=== PATIENT | male | born 1965 | race Caucasian/White ===

== ENCOUNTER 2020-06-10 08:55 | Emergency (ER) | payer SELFPAY ==
[2020-06-10] VITALS (10 sets, daily range): BP systolic 133–185; BP diastolic 81–101; PULSE 61–88; RESP 16–20; TEMP 36.3; O2SAT 95–98
--- NOTE | ~2020-06-10 | US_ITS ---
EXAMINATION: US arterial duplex LE LT EXAM DATE: 06/10/2020 11:14 INDICATION: left leg pain, hx arterial occlusion LLE. TECHNIQUE: Multiple grayscale and Doppler images of the left lower extremity arterial system were obt ained (by a technologist who performed the scan) and subsequently reviewed. Correlation is made to . FINDINGS: Velocities reported in centimeters per second. Left-sided common femoral artery 106, Profunda 13, superficial femoral artery 29, popliteal 14, poste rior tibial 7. No flow identified in the dorsalis pedis. There is constant low resistance flow all the arteries measured, with only minimal pulsatility in the se vessels which should have high resistance triphasic waveforms. Could indicate occlusion of supplyi ng iliac artery, with the interrogated vessels supplied through collateralization dampening systolic peaks. IMPRESSION: Abnormal left lower extremity Doppler waveform with minimally pulsatile low resistance co nstant flow throughout cardiac cycle. This could indicate acute or chronic leg occluded iliac artery or stent, with reconstitution through collateralization which could dampen normal pulsatile waveforms . Velocities as above. Reviewed, dictated and finalized at location A. O VISUAL AIDE IMPRESSION: Abnormal left lower extremity Doppler waveform with minimally pulsa tile low resistance constant flow throughout cardiac cycle. This could indicate acute or chronic leg occluded iliac artery or stent, with reconstitution throu gh collateralization which could dampen normal pulsatile waveforms. Velocities as above.
--- NOTE | ~2020-06-10 | CT_ITS ---
EXAMINATION: CTA abd aorta runoff EXAM DATE: 06/10/2020 13:33 INDICATION: left lower extremity occlusion? TECHNIQUE: Spiral CTA abd aorta runoff was performed following intravenous injection of 150 mL Omnipa que 350. Axial, coronal and sagittal images were reviewed. Maximum intensity projection 3-D reconstr uctions of the arteries were created by the technologist on dedicated workstation. The dose-length product (DLP) for this examination was 1021.76 mGy-cm. The exposure was tailored according to patien t size (auto mA exposure control), and iterative reconstruction (ASIR) was used as additional dose re duction technique. Correlation is made to CT abdomen pelvis 01/29/2015. FINDINGS: Compared to prior CT abdomen 2014, patient has had placement of aorto biiliac grafts bypass ing the [place] vessels. There is moderate stenosis of the distal aspect of the aorta from atheroscler osis. The left iliac graft is completely occluded, uncertain how much could be acute thrombus. There is reconstitution through collateralization from abdominal wall, epigastric arteries just above the c ommon femoral bifurcation, with normal-appearing enhancing profunda, superficial femoral and poplitea l arteries. There is 3 vessel runoff for most of the calf, with the posterior tibial the dominant sup ply to the foot, although this also loses enhancement at the level of the ankle with some reconstitut ion beyond. Right iliac graft is patent to the inguinal canal, where it is completely occluded for about 1 cm in length with reconstitution just above the common femoral bifurcation. Superficial femoral, popliteal, profunda arteries enhance normally, with both the posterior tibial and anterior tibial arteries meryl ining patent at the ankle level. Recommend vascular consult. There is hepatic steatosis. Gallbladder, adrenal glands, pancreas and spleen are unremarkable. Kidney s enhance symmetrically. There is no hydronephrosis. Prostate is normal in size. Bladder unremarkable . Appendix is normal. Expected amount of colonic stool. No small bowel obstruction. Sigmoid colon is undistended, mildly prominent wall could be from underdistention or possibly mild colitis if patient has acute symptoms. There is mild colonic diverticulosis without adjacent inflammation. IMPRESSION: 1. Aortobiiliac bypass grafts with completely occluded left side, reconstitution of the common femo ral. Left posterior tibial dominant supply to the foot. 2. Short segment occlusion right iliac bypass graft at the inguinal canal with reconstitution, anter ior and posterior tibial arteries identified at the ankle. 3. Prominent sigmoid colonic wall, could be under distention but if there are acute symptoms can't e xclude mild colitis. Recommend vascular consult. Reviewed, dictated and finalized at location A. ERCIAL CREDIT LEAD IMPRESSION: 1. Aortobiiliac bypass grafts with completely occluded left side, reconstitut ion of the common femoral. Left posterior tibial dominant supply to the foot. 2. Short segment occlusion right iliac bypass graft at the inguinal canal with reconstitution, anterior and posterior tibial arteries identified at the ankle . 3. Prominent sigmoid colonic wall, could be under distention but if there are acute symptoms can't exclude mild colitis. Recommend vascular consult.
--- NOTE | ~2020-06-10 | CT_ITS ---
EXAMINATION: CT lumbar spine wo [facility] EXAM DATE: 06/10/2020 11:26 INDICATION: pain radiating down the left leg TECHNIQUE: Spiral CT of the lumbar spine was performed without contrast. Axial, coronal and sagittal images were reviewed. The dose-length product (DLP) for this examination was 594.56 mGy-cm. The e xposure was tailored according to patient size (auto mA exposure control), and iterative reconstructi on (ASIR) was used as additional dose reduction technique. There is no prior study for comparison. FINDINGS: Patient has aortobiiliac bypass graft. There is moderate disc disease L5-S1, mild at the ot her lumbar levels. No spondylolysis. There is 2 mm anterolisthesis L4 on L5, 2 mm retrolisthesis L5 o n S1. There are no acute fractures identified. There are no osteoblastic or osteolytic lesions identi fied. Mild sigmoid diverticulosis. L4-5 has moderate left neural foraminal stenosis, mild to moderate neural foraminal stenosis at the o ther neural foramen L3-S1. There is moderate central canal stenosis L3-4 and L4-5, less at the other levels. No endplate erosive change. IMPRESSION: Up to moderate lower lumbar spondylosis. No acute findings. Reviewed, dictated and finalized at location A. IN COLLECTOR
--- NOTE | 2020-06-10 10:29 | ED.LOWEXIN ---
HPI - Extremity Injury (Lower) General Chief Complaint: Extremity Injury, Lower <Maddie Silvestre PA-C - Last Filed: 06/10/20 14:34> Stated Complaint: left leg pain <Maddie Silvestre PA-C - Last Filed: 06/10/20 14:34> Time Seen by Provider: 06/10/20 10:11 <Maddie Silvestre PA-C - Last Filed: 06/10/20 14:34> Source: patient <HENRY Burch Last Filed: 06/10/20 14:34> Mode of arrival: ambulatory <HENRY Burch Last Filed: 06/10/20 14:34> Limitations: no limitations <HENRY Burch Last Filed: 06/10/20 14:34> History of Present Illness HPI Narrative: This is a 54 year old male that presents to the ER for left leg pain x 3 days. No known injury or trauma. Reports the pain radiates down his leg and is burning in nature. Pain is worse with movement and relieved with rest. Reports history of vascular problems for which he had to see a vascular surgeon at [facility] about 5 years ago. Reports swelling in the leg. Denies fever, chest pain, shortness of breath, or erythema. <Maddie Silvestre PA-C - Last Filed: 06/10/20 14:34> Related Data Home Medications: Home Medications Medication Instructions Recorded Confirmed aspirin 81 mg PO DAILY 06/10/20 cephalexin [Keflex] 500 mg PO Q12H 06/10/20 hydrocodone-acetaminophen 1 tablet PO DAILY PRN 06/10/20 <Maddie Silvestre PA-C - Last Filed: 06/10/20 14:34> Allergies/Adverse Reactions: Allergies Allergy/AdvReac Type Severity Reaction Status Date / Time No Known Allergies Allergy Verified 06/10/20 10:34 <HENRY Burch Last Filed: 06/10/20 14:34> Review of Systems Review of Systems: Narrative: CONSTITUTIONAL: Denies fever CARDIOVASCULAR: Reports edema. Denies chest pain RESPIRATORY: Denies dyspnea. SKIN: Denies rash MUSCULOSKELETAL: Denies back pain NEUROLOGIC: Denies numbness, or weakness. <Maddie Silvestre PA-C - Last Filed: 06/10/20 14:34> All systems reviewed & are unremarkable except as noted in HPI and below <Maddie Silvestre PA-C - Last Filed: 06/10/20 14:34> PMFSH Social History Social History: Social History (Updated 06/10/20 @ 10:36 by Maddie Silvestre PA-C) Smoking status: Current every day smoker Substance use: never Gender identity (if verbalized by the patient): Male <Maddie Silvestre PA-C - Last Filed: 06/10/20 14:34> Exam Narrative: Exam Narrative: GENERAL: Well-appearing, well-nourished, and in no acute distress. HEAD: Normocephalic, atraumatic. EYES: EOMI. CHEST: Clear to auscultation. No respiratory distress. No wheezes rales or rhonchi HEART: Regular rate and rhythm. No murmur heard. Normal peripheral pulses. EXTREMITIES: Normal range of motion. No edema or erythema. Strength equal in bilateral lower extremities (5/5). Normal patellar reflexes bilaterally. Unable to palpate DP pulses bilaterally. Unable to palpate left femoral pulse. Normal right femoral pulse. Left foot is mildly paler than the right. Normal sensation SKIN: Warm, dry, no rash. NEURO: No focal deficits. Alert and oriented x3. PSYCH: Normal mood and affect <Maddie Silvestre PA-C - Last Filed: 06/10/20 14:34> Course UTILITY APPRAISER/PA Physician Supervision For this patient encounter, I reviewed the UTILITY APPRAISER or PA documentation, treatment plan, and medical decision making; and I had [id number] time with this patient. patient presented with constant left lower extremity pain and his pain is worse with walking. HE only had faint pedal pulses. 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 given his symptoms and he does not appear to be reliable has been transferred to [place] for evaluation by vascular surgery. <Krys Valencia MD - Last Filed: 06/10/20 18:29> Consultations Consultation #1: Spoke with Dr. Rodriguez with [facility] vascular surgery. Patient will be started on a heparin drip and will be transferred to the ED. Patient was given the option to possibl
[2020-06-10] MEDS: diazePAM (*CRX) 5 MG TABLET PO (10:34)
[2020-06-10] MEDS: KETOROLAC (*BKC) 60 MG/2 ML VIAL IM (10:34)
[2020-06-10 10:53] LABS: Basophils Absolute Auto 0.1 K/mm3 (0.0-0.1); Basophils Percent Auto 0.3 % (0.2-1.2); Eosinophils Absolute Auto 0.1 K/mm3 (0-0.3); Eosinophils Percent Auto 0.6 % (0-4.4); Hemoglobin 16.7 g/dL (14.0-18.0); Immature Granulocyte Absolute 0.08 K/mm3 (0.00-0.031); Immature Granulocyte Percent A 0.4 % (0-0.5); Lymphocytes Absolute Auto 4.32 K/mm3 (0.9-3.2); Lymphocytes Percent Auto 21.6 % (18.3-44.2); Mean Corpuscular HGB Conc 34.1 g/dl (32-36); Mean Corpuscular Hemoglobin 30.1 pg (26-34); Mean Corpuscular Volume 88.3 fl (80-100); Mean Platelet Volume 11.4 fl (7.4-10.4); Monocytes Absolute Auto 1.6 K/mm3 (0.1-0.6); Monocytes Percent Auto 8.1 % (2.6-8.5); Neutrophils Absolute Auto 13.8 K/mm3 (1.3-6.7); Platelet Count Result 199 k/mm3 (150-375); Red Blood Count 5.55 M/mm3 (4.6-6.20)
[2020-06-10 11:03] LABS: Prothrombin Time 13.5 Seconds (11.1-14.7)
[2020-06-10 11:09] LABS: Anion Gap 12 mmol/L (8-16); Blood Urea Nitrogen 15 mg/dL (9-20); CRP 1.3 mg/dL (<1.0); Calcium 9.9 mg/dL (8.4-10.2); Carbon Dioxide 24 mmol/L (22-30); Chloride 101 mmol/L (98-107); Estimated CRCL calculation 83 ml/min; Estimated Glomerular Filt Rate > 60; Glucose 104 mg/dL (75-110); Potassium 4.4 mmol/L (3.4-5.0); Sodium 137 mmol/L (137-145)
[2020-06-10 11:36] LABS: Erythrocyte Sedimentation Rate 2 mm/hr (0-20)
[2020-06-10 11:50] LABS: Lactic Acid Reflex 1.1 mmol/L (0.7-2.1)
[2020-06-10] MEDS: HEPARIN SOD/D5W 100 UNITS/ML 25,000 UNITS/250 ML BAG 15 UNITS IV CONT (14:44)
--- NOTE | 2020-06-10 15:10 | PC.NURSE ---
[facility] accepted transfer to [facility] [address] Trip # [id number]
--- NOTE | 2020-06-10 18:12 | PC.NURSE ---
PT LEFT WITH HEPARIN INFUSING.
== END 2020-06-10 18:13 | disposition short-term general hospital (02) ==
PROVIDERS: Physician Assistant; Emergency Provider General Practice
DX: T82.898A Other specified complication of vascular prosthetic devices, implants and grafts, initial encounter (principal); Z79.82 Long term (current) use of aspirin; F17.200 Nicotine dependence, unspecified, uncomplicated
CPT/HCPCS: 36415; 72131; 75635; 80048; 83605; 85025; 85610; 85652; 85730; 86140; 93926; 96365; 96366; 96372; 99285; A9270; J1644; J1885; Q9967

== ENCOUNTER 2021-01-01 23:24 | Emergency (ER) | payer OTHER, SELFPAY ==
--- NOTE | 2021-01-02 00:04 | ED.GENADULT ---
HPI - General Adult General Chief complaint: Extremity Problem,Nontraumatic Stated complaint: blood clot in L leg Time Seen by Provider: 01/01/21 23:47 History of Present Illness HPI narrative: Patient 55-year-old gentleman who presents the emergency department with chief complaint of left calf pain. Patient reports he has history of an aortofemoral bypass graft with stenting placed after he had an occlusion approximately 5 years ago the patient states that today he noticed that his left leg started hurting to the point that he can barely walk with it and noticed that his calf started swelling he also noticed that his left lower extremity was much cooler than his right lower extremity and reports that he does not feel pulses in his foot. The patient reports that he is concerned that he may have a clot in his left leg Related Data Home Medications Medication Instructions Recorded Confirmed aspirin 81 mg PO DAILY 06/10/20 cephalexin [Keflex] 500 mg PO Q12H 06/10/20 hydrocodone-acetaminophen 1 tablet PO DAILY PRN 06/10/20 Allergies Allergy/AdvReac Type Severity Reaction Status Date / Time No Known Allergies Allergy Verified 06/10/20 10:34 Review of Systems Review of Systems: Narrative: A 10 system review of systems was completed on the patient and is negative except for what is stated in the HPI. Nursing and ancillary documentation was reviewed. [facility] Social History Social History Smoking status: Current every day smoker Substance use: never Gender identity (if verbalized by the patient): Male Comments Past medical history significant for peripheral vascular disease Surgical history the patient has had aortofemoral bypass graft bilaterally with stenting Social history the patient reports that he has previously been a smoker but has subsequently quit smoking Exam Narrative: Exam Narrative: GENERAL: Well-appearing, well-nourished, and in no acute distress. HEAD: Normocephalic, atraumatic. EYES: PERRLA and EOMI. ENT: Nares clear, no rhinorrhea or epistaxis. Mucous membranes moist. NECK: Supple. CHEST: Clear to auscultation. No respiratory distress. HEART: Regular rate and rhythm. No murmur heard. Normal peripheral pulses. ABDOMEN: Soft, nontender, nondistended, normal active bowel sounds. EXTREMITIES: Normal range of motion. No edema. Left lower extremity is much cooler than the right lower extremity there is an absent dorsalis pedis present by both palpation and Doppler. I am unable to appreciate a popliteal pulse and the femoral pulse is markedly decreased compared to the right SKIN: Warm, dry, no rash. NEURO: No focal deficits. Alert and oriented x3. PSYCH: Normal mood and affect. Course Course Emergency Course: Case was discussed with Dr. Winn of the vascular surgery service the patient is being anticoagulated with heparin in the emergency department and the patient was accepted by Dr. hammonds Transfer Transfered to: [facility] Transportation: ALS Transfer rationale: Vascular surgery Accepting physician: Ricki Critical Care Time Critical Care Time Critical Care Time: Yes Total Critical Care Time: 30 Discharge Plan Discharge Clinical Impression: Acute occlusion of artery of lower extremity Patient Disposition: Acute Care Hospital Condition: Stable Instructions: Antibiotic Form Prescriptions: No Action hydrocodone-acetaminophen 5-325 mg Tablet 1 tablet PO DAILY PRN (Reason: Pain) RF: 0 cephalexin [Keflex] 500 mg Capsule 500 mg PO Q12H RF: 0 aspirin 81 mg Tablet 81 mg PO DAILY RF: 0 Follow-up/Referrals: PHYSICIAN,PLASTIC EXTRUDING MACHINE OPERATOR [Primary Care Provider] - Time of Disposition: 00:21
[2021-01-02 00:18] VITALS: BP 201/120; PULSE 88; RESP 18; TEMP 36.6; O2SAT 99
[2021-01-02] MEDS: MORPHINE SULFATE (*CRX) 4 MG/ML INJ IV PUSH (00:44)
[2021-01-02] MEDS: HEPARIN SODIUM 5,000 UNITS/ML VIAL 7000 UNITS IV PUSH (00:45)
[2021-01-02 00:46] LABS: Basophils Absolute Auto 0.1 K/mm3 (0.0-0.1); Basophils Percent Auto 0.6 % (0.2-1.2); Eosinophils Absolute Auto 0.1 K/mm3 (0-0.3); Eosinophils Percent Auto 0.8 % (0-4.4); Hematocrit 44.1 % (42.0-52.0); Hemoglobin 14.7 g/dL (14.0-18.0); Immature Granulocyte Absolute 0.06 K/mm3 (0.00-0.031); Immature Granulocyte Percent A 0.4 % (0-0.5); Lymphocytes Absolute Auto 4.02 K/mm3 (0.9-3.2); Lymphocytes Percent Auto 25.6 % (18.3-44.2); Mean Corpuscular HGB Conc 33.3 g/dl (32-36); Mean Corpuscular Hemoglobin 28.5 pg (26-34); Mean Corpuscular Volume 85.5 fl (80-100); Mean Platelet Volume 11.2 fl (7.4-10.4); Monocytes Absolute Auto 1.5 K/mm3 (0.1-0.6); Monocytes Percent Auto 9.6 % (2.6-8.5); Neutrophils Absolute Auto 9.9 K/mm3 (1.3-6.7); Platelet Count Result 172 k/mm3 (150-375); Red Blood Count 5.16 M/mm3 (4.6-6.20); Red Cell Distribution Width 14.2 % (11.5-14.5); White Blood Count 15.7 K/mm3 (4.5-10.0)
[2021-01-02 00:55] VITALS: BP 197/133; PULSE 88; RESP 20; O2SAT 98
[2021-01-02 00:56] LABS: Magnesium 2.1 mg/dL (1.6-2.3)
[2021-01-02 00:57] LABS: INR 0.9; Prothrombin Time 13.2 Seconds (11.1-14.7)
--- NOTE | 2021-01-02 00:57 | PC.NURSE ---
Addendum entered by Judith Watkins RN 01/02/21 01:02: awaiting heparin drip from pharmacy, will begin infusion as ordered. Original Note: ED hair spinner Jen gave report to [place] ED nurse, [facility] on way - ETA [id number]. Morphine given IVP as well as 7000 units heparin bolus IVP as ordered
[2021-01-02 00:58] LABS: Partial Thromboplastin Time 27.2 SECONDS (22.3-36.8)
[2021-01-02 00:59] LABS: Alanine Aminotransferase 29 U/L (4-50); Albumin Level 4.2 g/dL (3.5-5.1); Alkaline Phosphatase 75 U/L (38-126); Anion Gap 10 mmol/L (8-16); Aspartate Amino Transferase 48 U/L (17-59); Bilirubin,Total 0.4 mg/dL (0.2-1.3); Blood Urea Nitrogen 19 mg/dL (9-20); Calcium 9.8 mg/dL (8.4-10.2); Carbon Dioxide 27 mmol/L (22-30); Chloride 101 mmol/L (98-107); Estimated CRCL calculation 45 ml/min; Estimated Glomerular Filt Rate 42; Glucose 120 mg/dL (75-110); Potassium 3.1 mmol/L (3.4-5.0); Sodium 138 mmol/L (137-145)
[2021-01-02 01:09] LABS: Troponin I 0.032 ng/mL (0.000-0.034)
[2021-01-02] MEDS: HEPARIN SOD/D5W 100 UNITS/ML 25,000 UNITS/250 ML BAG 15 UNITS IV CONT (01:14)
[2021-01-02 01:22] VITALS: O2SAT 99
[2021-01-02 01:30] VITALS: O2SAT 99
[2021-01-02 01:32] VITALS: BP 190/112; O2SAT 98
--- NOTE | 2021-01-02 01:34 | PC.NURSE ---
EMS here to tansport pt to [place] ED. Report to ALS crew given.
[2021-01-02 01:44] VITALS: BP 211/129; PULSE 88; RESP 20; TEMP 36.6; O2SAT 100
== END 2021-01-02 01:47 | disposition short-term general hospital (02) ==
PROVIDERS: Emergency Provider Emergency Medicine
DX: I82.402 Acute embolism and thrombosis of unspecified deep veins of left lower extremity (principal); F17.210 Nicotine dependence, cigarettes, uncomplicated
CPT/HCPCS: 36415; 80053; 83735; 84484; 85025; 85610; 85730; 96365; 96375; 99285; J1644; J2270

== ENCOUNTER 2024-06-21 09:54 | Observation (INO) | payer OTHER, SELFPAY ==
--- NOTE | ~2024-06-21 | CT_ITS ---
EXAMINATION: CT abdomen pelvis w con DATE: 06/21/2024 11:41 INDICATION: Abdominal pain. Blood in stool. TECHNIQUE: Computed tomography (CT) of the abdomen and pelvis was performed with 100 mL Omnipaque 350 intravenous contrast. Automated exposure control and iterative reconstruction technique were employe d. The dose-length product was 327.80 mGy-cm. COMPARISON: CT abdomen and pelvis 06/10/2020 FINDINGS: The visualized portions of the lung bases demonstrate mild atelectasis. There is a pneumato emmett left lower lobe. No pleural effusion. The heart size is normal. No pericardial effusion. There a re cysts in the liver measuring up to 5 mm. Calcifications in the spleen are consistent with old gran ulomatous disease. The pancreas and adrenal glands are normal. There is cortical thinning of the kidn eys. There is an aortobifem bypass graft with stents. There are hematomas superficial to the common f emoral arteries bilaterally. There are scattered diverticula in the colon. There is wall thickening o f the sigmoid colon. There is a 2.3 x 1.4 x 1.5 cm perisigmoid abscess. The appendix is normal. There are no dilated loops of bowel. There are no pathologically enlarged lymph nodes. There is no free in traperitoneal fluid. There is severe lower lumbar spondylosis. IMPRESSION: 1. Sigmoid diverticulitis with small perisigmoid abscess. 2. Hematomas superficial to the common femoral arteries bilaterally, which may be subacute or chronic . Reviewed, dictated and finalized at location A. OUROLOGIST IMPRESSION: 1. Sigmoid diverticulitis with small perisigmoid abscess. 2. Hematomas superficial to the common femoral arteries bilaterally, which may be subacute or chronic.
[2024-06-21 10:01] VITALS: BP 136/100; PULSE 94; RESP 18; TEMP 36.7; O2SAT 100
[2024-06-21 11:05] LABS: Basophils Absolute Auto 0.1 K/mm3 (0.0-0.1); Basophils Percent Auto 0.4 % (0.2-1.2); Eosinophils Percent Auto 0.3 % (0-4.4); Hematocrit 45.8 % (42.0-52.0); Hemoglobin 15.7 g/dL (14.0-18.0); Immature Granulocyte Absolute 0.05 K/mm3 (0.00-0.031); Immature Granulocyte Percent A 0.3 % (0-0.5); Lymphocytes Absolute Auto 1.75 K/mm3 (0.9-3.2); Lymphocytes Percent Auto 11.7 % (18.3-44.2); Mean Corpuscular HGB Conc 34.3 g/dl (32-36); Mean Corpuscular Hemoglobin 30.4 pg (26-34); Mean Corpuscular Volume 88.8 fl (80-100); Mean Platelet Volume 12.5 fl (7.4-10.4); Monocytes Absolute Auto 1.5 K/mm3 (0.1-0.6); Monocytes Percent Auto 9.8 % (2.6-8.5); Neutrophils Absolute Auto 11.6 K/mm3 (1.3-6.7); Neutrophils Percent Auto 77.5 % (45.5-73.1); Platelet Count Result 173 k/mm3 (150-375); Red Blood Count 5.16 M/mm3 (4.6-6.20); Red Cell Distribution Width 12.5 % (11.5-14.5); White Blood Count 14.9 K/mm3 (4.5-10.0)
[2024-06-21 11:06] LABS: Alanine Aminotransferase 19 U/L (6-50); Albumin Level 4.8 g/dL (3.5-5.1); Alkaline Phosphatase 82 U/L (38-126); Anion Gap 6 mmol/L (4-12); Aspartate Amino Transferase 24 U/L (17-59); Bilirubin,Total 1.6 mg/dL (0.2-1.3); Blood Urea Nitrogen 15 mg/dL (9-20); Calcium 10.9 mg/dL (8.4-10.2); Carbon Dioxide 26 mmol/L (22-30); Chloride 105 mmol/L (98-107); Estimated CRCL calculation 72 ml/min; Estimated Glomerular Filt Rate > 60; Glucose 106 mg/dL (65-110); Lipase 133 U/L (23-300); Sodium 137 mmol/L (137-145)
[2024-06-21 11:24] LABS: Add Urine Microscopic? YES; Appearance Urine Clear (Clear); Bacteria Urine None Seen /hpf; Bilirubin Urine Negative (Negative); Blood Urine Non-Hemolyzed Trace (Negative); Color Urine Yellow (Yellow); Glucose Urine UA Negative (Negative); Ketones Urine Negative (Negative); Leukocyte Esterase Ur Trace LEU/UL (Negative); Nitrate Urine Negative (Negative); Non Pathogenic Casts 0-2; Protein Urine Trace mg/dL (Negative); Squamous Epithelial Cell Urine None Seen /hpf (Few); WBC Urine 0-5 /hpf (0-3); pH Urine 7.5 (5.0-9.0)
--- NOTE | 2024-06-21 12:23 | ED_ITS ---
HPI - Abdominal Pain General Chief Complaint: Abdominal Pain Stated Complaint: lower abd pain/rectal bleed Time Seen by Provider: 06/21/24 12:14 History of Present Illness HPI narrative: 58-year-old male presenting with abdominal pain. Started yesterday afternoon and associated with couple episodes of vomiting. Noticed bright red blood in his stool this morning. Reports a history of diverticulitis. Related Data Home Medications Medication Instructions Recorded Confirmed amlodipine 10 mg tablet 10 mg PO DAILY 06/21/24 06/21/24 aspirin 81 mg chewable tablet 81 mg PO DAILY 06/21/24 06/21/24 atorvastatin 40 mg tablet 40 mg PO HS 06/21/24 06/21/24 losartan 25 mg tablet 25 mg PO DAILY 06/21/24 06/21/24 rivaroxaban 20 mg tablet (Xarelto) 20 mg PO DAILY 06/21/24 06/21/24 Allergies Allergy/AdvReac Type Severity Reaction Status Date / Time No Known Allergies Allergy Verified 06/21/24 10:59 Review of Systems Review of Systems: All systems reviewed & are unremarkable except as noted in HPI and below PMFSH Past Medical History Medical History CAD (coronary artery disease) Diverticulitis History of aortic aneurysm Surgical History Surgical History History of aortic aneurysm repair History of coronary artery bypass graft History of heart artery stent History of vascular surgery Graft, bilateral lower extremities Social History Social History Smoking packs per day: 2 Smoking cigarettes per day: 40.0 Years smoked: 25 Smoking pack-years: 50.00 Smoking status: Former smoker Tobacco type: cigarettes Smoking end date: 06/20/20 Alcohol intake: former Substance use: never Substance use type: marijuana Other substance usage details: marijuana use occasionally Do You Feel Safe in your Home?: Yes Lack of Transportation: No Lack of Food: Never True Current Housing: I Have Housing Concerned About Future Housing: No Difficulty Paying Gas/Electric Bills: No Difficulty Paying for Meds: No Currently Unemployed: No Education: High School Diploma/GED Difficulty w/ Childcare or Family Care: No Gender identity (if verbalized by the patient): Male Spiritual care concerns: No Exam Narrative: GENERAL: Well-appearing, well-nourished, and in no acute distress. HEAD: Normocephalic, atraumatic. EYES: PERRLA and EOMI. ENT: Mucous membranes moist. NECK: Supple. CHEST: Clear to auscultation. No respiratory distress. HEART: Regular rate and rhythm ABDOMEN: Soft, + tender left lower quadrant without guarding or rebound EXTREMITIES: Normal range of motion SKIN: Warm, dry, no rash. NEURO: Alert and oriented x3. PSYCH: Normal mood and affect. Course Vital Signs Vital signs: Vital Signs Temperature 98.1 F 06/21/24 10:01 Pulse Rate 94 06/21/24 10:01 Respiratory Rate 18 06/21/24 10:01 Blood Pressure 136/100 H 06/21/24 10:01 Pulse Oximetry 100 06/21/24 10:01 Oxygen Delivery Room Air 06/21/24 10:01 Temperature 98.5 F 06/22/24 05:38 Pulse Rate 80 06/22/24 05:38 Respiratory Rate 18 06/22/24 05:38 Blood Pressure 140/92 H 06/22/24 05:38 Pulse Oximetry 98 06/22/24 05:38 Oxygen Delivery Room Air 06/22/24 08:00 MDM - Abdominal Pain MDM Narrative Medical decision making narrative: 58-year-old male presenting with lower abdominal pain for the last day. Vitals are stable. Exam remarkable for the above. Blood work with a white count of 15. CT abdomen pelvis shows sigmoid diverticulitis with small gulshan sigmoid abscesses. IV antibiotics have been ordered as well as IV fluids. Patient's natalie n is adequately controlled. I spoke with surgery who will follow along. I spoke with the hospitalist who has accepted him for admission. Differential Diagnosis Differential diagnosis: Likely abdominal pain, acute appendicitis, constipation, diverticulitis, gastroenteritis and pancreatitis Medical Records Attestation: I reviewed the patient's medical records. Lab Data Attestation: I reviewed the patient's lab results. 06/22/24 05:58 06/22/24 05:58 Labs: Lab Results 06/21/24 06/21/24 Range/Units 10:44 11:13 WBC 14.9 H (4.5-10.0) K/mm3 RBC 5.16 (4.6-6.20) M/mm3 Hgb 15.7 (14.0-18.0) g/dL Hct 45.8 (42.0-52.0) % MCV 88.8 (80-100) fl MCH 30.4 (26-34) pg MCHC 34.3 (32-36) g/dl RDW 12.5 (11.5-14.5) % Plt Count 173 (150-375) k/mm3 MPV 12.5 H (7.4-10.4) fl Immature Gran % (Auto) 0.3 (0-0.5) % Neut % (Auto) 77.5 H (45.5-73.1) % Lymph % (Auto) 11.7 L (18.3-44.2) % Pierce % (Auto) 9.8 H (2.6-8.5) % Eos % (Auto) 0.3 (0-4.4) % Baso % (Auto) 0.4 (0.2-1.2) % Lymph # (Auto) 1.75 (0.9-3.2) K/mm3 Pierce # (Auto) 1.5 H (0.1-0.6) K/mm3 Eos # (Auto) 0.0 (0-0.3) K/mm3 Baso # (Auto) 0.1 (0.0-0.1) K/mm3 Abs Immat Gran (auto) 0.05 H (0.00-0.031) K/mm3 Absolute Neuts (auto) 11.6 H (1.3-6.7) K/mm3 Absolute Nucleated RBC 0.000 (0.0-0.012) K/mm3 Nucleated RBC % 0.0 (0.0-0.2) % Sodium 137 (137-145) mmol/L Potassium 4.0 (3.4-5.0) mmol/L Chloride 105 (98-107) mmol/L Carbon Dioxide 26 (22-30) mmol/L Anion Gap 6 (4-12) mmol/L BUN 15 (9-20) mg/dL Creatinine 1.00 (0.7-1.3) mg/dL Estim Creat Clear Calc 72 ml/min Estimated GFR > 60 (59 - ) Glucose 106 (65-110) mg/dL Calcium 10.9 H (8.4-10.2) mg/dL Total Bilirubin 1.6 H (0.2-1.3) mg/dL AST 24 (17-59) U/L ALT 19 (6-50) U/L Alkaline Phosphatase 82 (38-126) U/L Total Protein 8.0 (6.3-8.2) g/dL Albumin 4.8 (3.5-5.1) g/dL Lipase 133 (23-300) U/L Procalcitonin 0.1 ng/mL Urine Color Yellow (Yellow) Urine Appearance Clear (Clear) Urine pH 7.5 (5.0-9.0) Ur Specific [place] 1.020 (1.001-1.035) Urine Protein Trace (Negative) mg/dL Urine Glucose (UA) Negative (Negative) mg/dL Urine Ketones Negative (Negative) mg/dL Ur Blood (Man) Non-hemolyzed trace (Negative) Urine Nitrate Negative (Negative) Urine Bilirubin Negative (Negative) Urine Urobilinogen 1.0 (<2.0) mg/dL Leukocyte Esterase Rfl Trace H (Negative) VERONICA/UL Urine RBC 11-20 H (0-2) /hpf Urine WBC 0-5 (0-3) /hpf Ur Squamous Epith Cells None seen (Few) /hpf Urine Bacteria None seen /hpf Urine Casts 0-2 Imaging Data Radiologist's impression: ITS Impressions Abdomen/Pelvis CT 06/21/24 12:01 IMPRESSION: 1. Sigmoid diverticulitis with small perisigmoid abscess. 2. Hematomas superficial to the common femoral arteries bilaterally, which may be subacute or chronic. Critical Care Time Critical Care Time Critical Care Time: No Discharge Plan Discharge Clinical Impression: Diverticulitis of intestine with abscess Patient Disposition: Still a Patient Condition: Stable
[2024-06-21] MEDS: HYDROmorphone HCL INJ (*CRX) 1 MG/ML SYR 0.5 MG IV PUSH (12:34)
[2024-06-21] MEDS: ONDANSETRON HCL ODT 4 MG TABLET PO (12:34)
[2024-06-21] MEDS: SODIUM CHLORIDE 0.9% IV 1,000 ML 999 ML IV CONT (12:35)
--- NOTE | 2024-06-21 13:11 | PM.IMHP ---
H&P: HPI History of Present Illness Date/Time: 06/21/24 13:11 Chief Complaint: Abdominal Pain Narrative: 58 y/o M presents here with lower abdominal pain with PMH of diverticulitis, CABG, aortic aneurysm s/p repair and graft. The patient presents here from home for further evaluation of lower abdominal pain and bright red blood per rectum with bowel movements. He reports initial onset of lower abdominal pain yesterday afternoon around 3:30-4:00 p.m. He described the abdominal pain as if a needle was poking into his lower abdomen, nonradiating, intermittent, aggravated by movement, and partially alleviated by bringing his knees to his chest. Lower abdominal pain is accompanied by nausea and vomiting. Estimates he vomited approximately once in the last 24 hours. Emesis has been nonbloody and nonbilious, described as teas color (denies coffee-ground appearance). Patient then developed bright red blood per rectum this morning with his bowel movement. He describes the bowel movement as dark brown, hard, small, and pellet like. He does have a history of diverticulitis without last episode was approximately 8 years ago. +body aches and chills. Also felt feverish last night but was unable to take his temp. Has previously underwent aortic aneurysm repair and graft. Follow with [place] [facility] surgery. Does not believe he has been told he has hematomas near the renal arteries, seen on CT today (acute vs subacute). Denies flank pain. Initial VS at presentation: 98.1? F, HR 94, R 18, 136/100, and 100% on RA. ED workup showed: WBC 14.9, no anemia, no significant electrolyte derangements, creatinine 1.0 and GFR >60, calcium 10.9, total bilirubin 1.6, and UA showed trace leuk esterase and 11-20 RBC otherwise no abnormalities. CT of the abdomen/pelvis showed sigmoid diverticulitis with small perisigmoid abscess and hematoma superficial to the common femoral arteries bilaterally which may be subacute or chronic. Review of Systems Review of Systems: All systems reviewed & are unremarkable except as noted in HPI and below [facility] Past Medical History Medical History CAD (coronary artery disease) Diverticulitis History of aortic aneurysm Surgical History Surgical History History of aortic aneurysm repair History of coronary artery bypass graft History of heart artery stent History of vascular surgery Graft, bilateral lower extremities Social History Social History Smoking packs per day: 2 Smoking cigarettes per day: 40.0 Years smoked: 25 Smoking pack-years: 50.00 Smoking status: Former smoker Tobacco type: cigarettes Smoking end date: 06/20/20 Alcohol intake: former Substance use: never Substance use type: marijuana Other substance usage details: marijuana use occasionally Do You Feel Safe in your Home?: Yes Lack of Transportation: No Lack of Food: Never True Current Housing: I Have Housing Concerned About Future Housing: No Difficulty Paying Gas/Electric Bills: No Difficulty Paying for Meds: No Currently Unemployed: No Education: High School Diploma/GED Difficulty w/ Childcare or Family Care: No Gender identity (if verbalized by the patient): Male Spiritual care concerns: No Meds Home Medications and Allergies Home Medications Medication Instructions Recorded Confirmed Type amlodipine 10 mg tablet 10 mg PO DAILY 06/21/24 06/21/24 History aspirin 81 mg chewable tablet 81 mg PO DAILY 06/21/24 06/21/24 History atorvastatin 40 mg tablet 40 mg PO HS 06/21/24 06/21/24 History losartan 25 mg tablet 25 mg PO DAILY 06/21/24 06/21/24 History rivaroxaban 20 mg tablet (Xarelto) 20 mg PO DAILY 06/21/24 06/21/24 History Allergies Allergy/AdvReac Type Severity Reaction Status Date / Time No Known Allergies Allergy Verified 06/21/24 10:59 Vital Signs Vital Signs - 24 hr 06/21/24 10:01 Temperature 98.1 F Pulse Rate 94 Respiratory Rate 18 Blood Pressure 136/100 H Pulse Oximetry 100 Oxygen Delivery Room Air Exam Const: General: comfortable and no acute distress Other: , male, nontoxic appearance HENMT: Face/Nose/Sinus: Normal nares present Mouth: Yes moist mucous membranes Eyes: General: appearance normal, both eyes and all related structures Sclera: sclerae normal Pupils: Equal, round and reactive pupils present EOM: EOMs intact bilaterally Resp: Effort & Inspection: normal respiratory effort Auscultation: clear to auscultation bilaterally Cardio: Rate: regular rate Rhythm: regular rhythm Other: S1-S2 present without murmur, rub, ectopy GI: Other: Abdomen soft, nondistended. Very mild tenderness in the left lower quadrant. Normoactive bowel sounds in all quadrants. Skin: General skin exam: normal color and no rashes or lesions noted Wounds: no wounds Neuro: Speech: normal speech Motor exam (neuro): 5/5 motor strength present throughout Sensory Exam: normal sensation Other: A&O x4 Extrem: General: normal to inspection Psych: Mental Status: mental status grossly normal Affect: normal affect Other: Good insight and judgment, pleasant H&P: Results Labs Labs: Short CBC 06/21/24 Range/Units 10:44 WBC 14.9 H (4.5-10.0) K/mm3 Hgb 15.7 (14.0-18.0) g/dL Hct 45.8 (42.0-52.0) % Plt Count 173 (150-375) k/mm3 BMP 06/21/24 10:44 Sodium 137 Potassium 4.0 Chloride 105 Carbon Dioxide 26 BUN 15 Creatinine 1.00 Glucose 106 Calcium 10.9 H Liver Function 06/21/24 Range/Units 10:44 Total Bilirubin 1.6 H (0.2-1.3) mg/dL AST 24 (17-59) U/L ALT 19 (6-50) U/L Alkaline Phosphatase 82 (38-126) U/L Albumin 4.8 (3.5-5.1) g/dL Urine 06/21/24 Range/Units 11:13 Urine Color Yellow (Yellow) Urine Appearance Clear (Clear) Urine pH 7.5 (5.0-9.0) Ur Specific [place] 1.020 (1.001-1.035) Urine Protein Trace (Negative) mg/dL Urine Glucose (UA) Negative (Negative) mg/dL Assessment and Plan Assessment and plan (1) Sepsis: Qualifiers: Sepsis acute organ dysfunction status: without acute organ dysfunction Sepsis type: sepsis due to unspecified organism Qualified Code(s): A41.9 - Sepsis, unspecified organism Code(s): A41.9 - Sepsis, unspecified organism Status: Acute Assessment and Plan: - meets SIRS criteria: HR, WBC - lactic acid and procalcitonin ordered - 30 mL/kg = 2220, 1L given. Will order second 1L bolus and maintenance fluids (will d/c at 8am on 06/22). - suspected source: Diverticulitis with small abscess - started on Zosyn - blood cultures drawn on 06/21 - UA: Trace leuks, 11-20 RBC (2) Diverticulitis of intestine with abscess and bleeding: Qualifiers: Diverticulitis site: large intestine Qualified Code(s): K57.21 - Diverticulitis of large intestine with perforation and abscess with bleeding Code(s): K57.81 - Diverticulitis of intestine, part unspecified, with perforation and abscess with bleeding Status: Acute Assessment and Plan: - CT abd/pelvis: 1. Sigmoid diverticulitis with small perisigmoid abscess. 2. Hematomas superficial to the common femoral arteries bilaterally, which may be subacute or chronic. - started on Zosyn on 06/21 - bowel rest; clear liquids, NPO at midnight - IV fluids: 2L bolus -> 100 mL/hr (will d/c at 8am on 06/22) - antiemetics and analgesics PRN - general surgery consulted, awaiting recs - monitor WBC, electrolytes, and renal function - Xarelto continued, history of AAA s/p repair (3) Abnormal abdominal CT scan: Code(s): R93.5 - Abnormal findings on diagnostic imaging of other abdominal regions, including retroperitoneum Status: Acute Assessment and Plan: - CT of the abd/pelvis on 06/21 showed hematomas superficial to the common femoral arteries bilaterally, which may be subacute or chronic. - aorta w/runoff CTA (05/2020) 1. Aortobiiliac bypass grafts with completely occluded left side, reconstitution of the common femoral. Left posterior tibial dominant supply to the foot. 2. Short segment occlusion right iliac bypass graft at the inguinal canal with reconstitution, anterior and posterior tibial arteries identified at the ankle. 3. Prominent sigmoid colonic wall, could be under distention but if there are acute symptoms can't exclude mild colitis. Recommend vascular consult. - request records from [facility], compare once obtained. no flank pain. - continue Xarelto Plan Diet: NPO GI Prophylaxis: Pantoprazole DVT Prophylaxis: SCDs, continue Xarelto Lines: Peripheral Code Status: Full code Quality VTE Prophylaxis VTE prophylaxis: mechanical ordered Hospitalist [facility] Advance Care Plan I have confirmed that the patient's Advanced Care Plan is present, code status is documented, or surrogate decision maker is listed in patient medical record.: Yes Medication Reconciliation I have utilized all available resources to obtain, update and review the patients current medications (includes all prescriptions, OTC, herbals, cannabis, and nutritional supplements).: Yes
[2024-06-21] MEDS: PIPERACILLIN/TAZ 4.5G/NS 100ML 4.5 GM/100 ML BAG IVPB (13:19)
[2024-06-21 13:25] VITALS: BP 142/89; PULSE 80; RESP 18; O2SAT 100
[2024-06-21 14:40] VITALS: BMI 23.3
--- NOTE | 2024-06-21 15:17 | PM.CNGS ---
Assessment and Plan Assessment and plan (1) Diverticulitis of intestine with abscess and bleeding: Qualifiers: Diverticulitis site: large intestine Qualified Code(s): K57.21 - Diverticulitis of large intestine with perforation and abscess with bleeding Code(s): K57.81 - Diverticulitis of intestine, part unspecified, with perforation and abscess with bleeding Status: Acute Assessment and Plan: Exam largely benign, continue serial exams, okay to have clear liquids, IV antibiotics, recheck labs in the morning (2) Tobacco abuse: Code(s): Z72.0 - Tobacco use Status: Acute Assessment and Plan: discussed cessation, patient not interested at this point History of Present Illness Consult details Consult date: 06/21/24 Reason for consult: abdominal pain Requesting physician: Mercedes Colbert MD Narrative: The patient is a 58-year-old male presenting to the emergency department complaining of severe lower abdominal pain. The patient reports the pain has been going on since yesterday. He reports associated anorexia, nausea, and also a episode of bloody bowel movement. The patient reports he has had similar symptoms in the past associated with diverticulitis. Workup in the emergency department, including imaging, is significant for diverticulitis with abscess. Review of Systems Review of Systems: All systems reviewed & are unremarkable except as noted in HPI and below [facility] Past Medical History Medical History Diverticulitis Social History Social History Smoking status: Current every day smoker Substance use: never Gender identity (if verbalized by the patient): Male Meds Home Medications and Allergies Home Medications Medication Instructions Recorded Confirmed Type amlodipine 10 mg tablet 10 mg PO DAILY 06/21/24 06/21/24 History aspirin 81 mg chewable tablet 81 mg PO DAILY 06/21/24 06/21/24 History atorvastatin 40 mg tablet 40 mg PO HS 06/21/24 06/21/24 History losartan 25 mg tablet 25 mg PO DAILY 06/21/24 06/21/24 History rivaroxaban 20 mg tablet (Xarelto) 20 mg PO DAILY 06/21/24 06/21/24 History Allergies Allergy/AdvReac Type Severity Reaction Status Date / Time No Known Allergies Allergy Verified 06/21/24 10:59 Vital Signs Vital Signs - 24 hr 06/21/24 10:01 06/21/24 13:25 Temperature 36.7 C Pulse Rate 94 80 Respiratory Rate 18 18 Blood Pressure 136/100 H 142/89 H Pulse Oximetry 100 100 Oxygen Delivery Room Air Exam Const: General: cooperative, comfortable and no acute distress HENMT: Head: normal to inspection, normocephalic and atraumatic Eyes: General: appearance normal, both eyes and all related structures Neck: Neck: normal visual inspection, full ROM and no lymphadenopathy Resp: Auscultation: clear to auscultation bilaterally Cardio: Rate: regular rate Rhythm: regular rhythm GI: Inspection: normal to inspection and non-distended GI Palp: Yes abdominal tenderness, Yes Soft to palpation, Yes Tenderness to palpation present (GI), No Guarding due to palpation present (GI) and No Rigid due to palpation Back/Spine/Pelvis: Back: no CVA tenderness Skin: General skin exam: normal color and no rashes or lesions noted Neuro: General: patient oriented x3 and CN's II-XI intact bilaterally Extrem: General: normal to inspection and full ROM Results Labs 06/21/24 10:44 06/21/24 10:44 Labs: Abnormal lab results 06/21/24 06/21/24 Range/Units 10:44 11:13 WBC 14.9 H (4.5-10.0) K/mm3 MPV 12.5 H (7.4-10.4) fl Neut % (Auto) 77.5 H (45.5-73.1) % Lymph % (Auto) 11.7 L (18.3-44.2) % [place] % (Auto) 9.8 H (2.6-8.5) % [place] # (Auto) 1.5 H (0.1-0.6) K/mm3 Abs Immat Gran (auto) 0.05 H (0.00-0.031) K/mm3 Absolute Neuts (auto) 11.6 H (1.3-6.7) K/mm3 Calcium 10.9 H (8.4-10.2) mg/dL Total Bilirubin 1.6 H (0.2-1.3) mg/dL Leukocyte Esterase Rfl Trace H (Negative) VERONICA/UL Urine RBC 11-20 H (0-2) /hpf Diabetes panel 06/21/24 Range/Units 10:44 Sodium 137 (137-145) mmol/L Potassium 4.0 (3.4-5.0) mmol/L Chloride 105 (98-107) mmol/L Carbon Dioxide 26 (22-30) mmol/L BUN 15 (9-20) mg/dL Creatinine 1.00 (0.7-1.3) mg/dL Glucose 106 (65-110) mg/dL Calcium 10.9 H (8.4-10.2) mg/dL AST 24 (17-59) U/L ALT 19 (6-50) U/L Alkaline Phosphatase 82 (38-126) U/L Total Protein 8.0 (6.3-8.2) g/dL Albumin 4.8 (3.5-5.1) g/dL Calcium panel 06/21/24 Range/Units 10:44 Calcium 10.9 H (8.4-10.2) mg/dL Albumin 4.8 (3.5-5.1) g/dL Pituitary panel 06/21/24 Range/Units 10:44 Sodium 137 (137-145) mmol/L Potassium 4.0 (3.4-5.0) mmol/L Chloride 105 (98-107) mmol/L Carbon Dioxide 26 (22-30) mmol/L BUN 15 (9-20) mg/dL Creatinine 1.00 (0.7-1.3) mg/dL Glucose 106 (65-110) mg/dL Calcium 10.9 H (8.4-10.2) mg/dL Adrenal panel 06/21/24 Range/Units 10:44 Sodium 137 (137-145) mmol/L Potassium 4.0 (3.4-5.0) mmol/L Chloride 105 (98-107) mmol/L Carbon Dioxide 26 (22-30) mmol/L BUN 15 (9-20) mg/dL Creatinine 1.00 (0.7-1.3) mg/dL Glucose 106 (65-110) mg/dL Calcium 10.9 H (8.4-10.2) mg/dL Total Bilirubin 1.6 H (0.2-1.3) mg/dL AST 24 (17-59) U/L ALT 19 (6-50) U/L Alkaline Phosphatase 82 (38-126) U/L Total Protein 8.0 (6.3-8.2) g/dL Albumin 4.8 (3.5-5.1) g/dL All other labs normal. Imaging Abdomen CT scan report/results: report reviewed and image reviewed
[2024-06-21 15:33] LABS: Procalcitonin 0.1 ng/mL
[2024-06-21] MEDS: ACETAMINOPHEN 325 MG TABLET 650 MG PO ×2 (15:53→21:38)
[2024-06-21] MEDS: SODIUM CHLORIDE 0.9% IV 1,000 ML 100 ML IV CONT (16:30)
[2024-06-21] MEDS: PIPERACILLN/TAZ 3.375GM/NS50ML 3.375 GM/50 ML BAG IVPB ×2 (16:31→23:14)
[2024-06-21] MEDS: RIVAROXABAN 20 MG TABLET PO (16:31)
[2024-06-21] MEDS: MORPHINE SULFATE (*CRX) 2 MG/ML INJ IV PUSH ×2 (16:42→21:31)
[2024-06-21 17:38] VITALS: O2SAT 100
--- NOTE | 2024-06-21 17:45 | PC.NURSE ---
This patient, Jonathan Caldwell Jr., was admitted to [facility] Room 300-01. Patient/family oriented to hospital policies and general routines including ID bracelet, bed and alarms, visiting hours, pain management, procedures, bathroom and other care routines, personal items, smoking policy, room service/diet, and visiting hours. Information on how to activate the Rapid Response Team has been discussed. Patient/Family are encouraged to report perceived risks to care and to ask questions if they do not understand what they are told or what they should do.
[2024-06-21 20:15] VITALS: BP 136/92; PULSE 73; RESP 18; TEMP 37; O2SAT 98
[2024-06-21] MEDS: ATORVASTATIN 40 MG TABLET PO (20:17)
[2024-06-22] MEDS: MORPHINE SULFATE (*CRX) 2 MG/ML INJ IV PUSH ×5 (01:47→21:50)
[2024-06-22] MEDS: SODIUM CHLORIDE 0.9% IV 1,000 ML 100 ML IV CONT (03:00)
[2024-06-22] MEDS: PIPERACILLN/TAZ 3.375GM/NS50ML 3.375 GM/50 ML BAG IVPB ×4 (05:06→23:38)
[2024-06-22 05:38] VITALS: BP 140/92; PULSE 80; RESP 18; TEMP 36.9; O2SAT 98
[2024-06-22 06:26] LABS: Basophils Percent Auto 0.4 % (0.2-1.2); Eosinophils Absolute Auto 0.1 K/mm3 (0-0.3); Hematocrit 38.5 % (42.0-52.0); Hemoglobin 12.9 g/dL (14.0-18.0); Immature Granulocyte Absolute 0.02 K/mm3 (0.00-0.031); Immature Granulocyte Percent A 0.2 % (0-0.5); Lymphocytes Absolute Auto 1.52 K/mm3 (0.9-3.2); Lymphocytes Percent Auto 16.9 % (18.3-44.2); Mean Corpuscular HGB Conc 33.5 g/dl (32-36); Mean Corpuscular Hemoglobin 30.2 pg (26-34); Mean Corpuscular Volume 90.2 fl (80-100); Mean Platelet Volume 11.9 fl (7.4-10.4); Monocytes Absolute Auto 1.2 K/mm3 (0.1-0.6); Monocytes Percent Auto 13.4 % (2.6-8.5); Neutrophils Absolute Auto 6.1 K/mm3 (1.3-6.7); Neutrophils Percent Auto 68.1 % (45.5-73.1); Platelet Count Result 143 k/mm3 (150-375); Red Blood Count 4.27 M/mm3 (4.6-6.20); Red Cell Distribution Width 12.6 % (11.5-14.5)
[2024-06-22 06:32] LABS: Alanine Aminotransferase 14 U/L (6-50); Albumin Level 3.6 g/dL (3.5-5.1); Alkaline Phosphatase 66 U/L (38-126); Anion Gap 0 mmol/L (4-12); Aspartate Amino Transferase 18 U/L (17-59); Bilirubin,Total 1.2 mg/dL (0.2-1.3); Blood Urea Nitrogen 13 mg/dL (9-20); Calcium 9.8 mg/dL (8.4-10.2); Carbon Dioxide 28 mmol/L (22-30); Chloride 109 mmol/L (98-107); Estimated CRCL calculation 60 ml/min; Estimated Glomerular Filt Rate > 60; Glucose 98 mg/dL (65-110); Potassium 3.7 mmol/L (3.4-5.0); Sodium 137 mmol/L (137-145)
[2024-06-22] MEDS: PANTOPRAZOLE SODIUM IV 40 MG VIAL IV PUSH (08:12)
[2024-06-22] MEDS: LOSARTAN POTASSIUM 25 MG TABLET PO (08:12)
[2024-06-22] MEDS: ASPIRIN 81 MG CHEWABLE TABLET PO (08:12)
[2024-06-22] MEDS: amLODIPine BESYLATE 10 MG TABLET PO (08:12)
--- NOTE | 2024-06-22 09:10 | PM.PNGS ---
Progress Note: A&P Assessment and Plan (1) Diverticulitis of intestine with abscess and bleeding: Qualifiers: Diverticulitis site: large intestine Qualified Code(s): K57.21 - Diverticulitis of large intestine with perforation and abscess with bleeding Code(s): K57.81 - Diverticulitis of intestine, part unspecified, with perforation and abscess with bleeding Status: Acute Assessment and Plan: exam largely benign, will advance to low fiber diet, cont IV abx, OOB Subjective Subjective Date/Time Seen: 06/22/24 09:10 Interval history: feels better, still c some pain when pain meds wear off , fauzia clears Review of Systems Review of Systems: All systems reviewed & are unremarkable except as noted in HPI and below Exam Const: General: cooperative, comfortable and no acute distress Resp: Auscultation: clear to auscultation bilaterally Cardio: Rate: regular rate Rhythm: regular rhythm GI: Inspection: normal to inspection and non-distended GI Palp: Yes abdominal tenderness, Yes Soft to palpation, Yes Tenderness to palpation present (GI), No Guarding due to palpation present (GI) and No Rigid due to palpation Objective Data Vital Signs Vital Signs: Vital Signs - 24 hr 06/21/24 10:01 06/21/24 13:25 06/21/24 17:38 Temperature 36.7 C Pulse Rate 94 80 Respiratory Rate 18 18 Blood Pressure 136/100 H 142/89 H Pulse Oximetry 100 100 100 Oxygen Delivery Room Air Room Air 06/21/24 20:00 06/21/24 20:15 06/22/24 05:38 Temperature 37.0 C 36.9 C Pulse Rate 73 80 Respiratory Rate 18 18 Blood Pressure 136/92 H 140/92 H Pulse Oximetry 98 98 Oxygen Delivery Room Air Intake/Output Intake/Output: Intake & Output 06/19/24 06/20/24 06/21/24 06/22/24 23:59 23:59 23:59 23:59 Intake Total 2140 6 Output Total 900 Balance 2140 1146 Meds/Results Medications: Active Medications Generic Name Dose Route Start Last Admin Trade Name Freq PRN Reason Stop Dose Admin Acetaminophen 650 mg 06/21/24 13:17 06/21/24 21:38 Acetaminophen 325 Mg Tablet PO 650 mg Q4H PRN Administration Mild Pain (1-3) or Fever Amlodipine Besylate 10 mg 06/22/24 09:00 06/22/24 08:12 Amlodipine Besylate 10 Mg Tablet PO 10 mg DAILY ARMANDO Administration Aspirin 81 mg 06/22/24 09:00 06/22/24 08:12 Aspirin 81 Mg Chewable Tablet PO 81 mg DAILY ARMANDO Administration Atorvastatin Calcium 40 mg 06/21/24 21:00 06/21/24 20:17 Atorvastatin 40 Mg Tablet PO 40 mg HS ARMANDO Administration Hydromorphone HCl 0.5 mg 06/21/24 13:26 Hydromorphone Hcl Inj (*Crx) 1 Mg/Ml Syr IV PUSH Q3H PRN Pain Rated 7-10 Piperacillin/Tazobactam/Dextrose 3.375 gm in 50 mls @ 100 mls/hr 06/21/24 19:00 06/22/24 05:06 Zosyn 3.375 Gm/Ns 50 Ml IVPB 100 mls/hr Q6HR ARMANDO Administration Losartan Potassium 25 mg 06/22/24 09:00 06/22/24 08:12 Losartan Potassium 25 Mg Tablet PO 25 mg DAILY ARMANDO Administration Morphine Sulfate 2 mg 06/21/24 13:21 06/22/24 06:30 Morphine Sulfate (*Crx) 2 Mg/Ml Inj IV PUSH 2 mg Q4H PRN Administration Pain Rated 7-10 Ondansetron HCl 4 mg 06/21/24 13:17 Ondansetron Inj 4 Mg/2 Ml Vial IV PUSH Q6H PRN Nausea And Vomiting Pantoprazole Sodium 40 mg 06/22/24 09:00 06/22/24 08:12 Pantoprazole Sodium Iv 40 Mg Vial IV PUSH 40 mg QAM ARMANDO Administration Rivaroxaban 20 mg 06/21/24 17:00 06/21/24 16:31 Rivaroxaban 20 Mg Tablet PO 20 mg DAILY@1700 ARMANDO Administration Radiology Results: ITS Impressions Abdomen/Pelvis CT 06/21/24 12:01 IMPRESSION: 1. Sigmoid diverticulitis with small perisigmoid abscess. 2. Hematomas superficial to the common femoral arteries bilaterally, which may be subacute or chronic. Labs Labs: Laboratory Results - last 24 hr 06/21/24 06/21/24 06/21/24 10:44 11:13 15:17 WBC 14.9 H RBC 5.16 Hgb 15.7 Hct 45.8 MCV 88.8 MCH 30.4 MCHC 34.3 RDW 12.5 Plt Count 173 MPV 12.5 H Immature Gran % (Auto) 0.3 Neut % (Auto) 77.5 H Lymph % (Auto) 11.7 L [place] % (Auto) 9.8 H Eos % (Auto) 0.3 Baso % (Auto) 0.4 Lymph # (Auto) 1.75 [place] # (Auto) 1.5 H Eos # (Auto) 0.0 Baso # (Auto) 0.1 Abs Immat Gran (auto) 0.05 H Absolute Neuts (auto) 11.6 H Absolute Nucleated RBC 0.000 Nucleated RBC % 0.0 Sodium 137 Potassium 4.0 Chloride 105 Carbon Dioxide 26 Anion Gap 6 BUN 15 Creatinine 1.00 Estim Creat Clear Calc 72 Estimated GFR > 60 Glucose 106 Lactic Acid 2.0 Calcium 10.9 H Total Bilirubin 1.6 H AST 24 ALT 19 Alkaline Phosphatase 82 Total Protein 8.0 Albumin 4.8 Lipase 133 Procalcitonin 0.1 Urine Color Yellow Urine Appearance Clear Urine pH 7.5 Ur Specific [place] 1.020 Urine Protein Trace Urine Glucose (UA) Negative Urine Ketones Negative Ur Blood (Man) Non-hemolyzed trace Urine Nitrate Negative Urine Bilirubin Negative Urine Urobilinogen 1.0 Leukocyte Esterase Rfl Trace H Urine RBC 11-20 H Urine WBC 0-5 Ur Squamous Epith Cells None seen Urine Bacteria None seen Urine Casts 0-2 06/22/24 05:58 WBC 9.0 RBC 4.27 L Hgb 12.9 L Hct 38.5 L MCV 90.2 MCH 30.2 MCHC 33.5 RDW 12.6 Plt Count 143 L MPV 11.9 H Immature Gran % (Auto) 0.2 Neut % (Auto) 68.1 Lymph % (Auto) 16.9 L [place] % (Auto) 13.4 H Eos % (Auto) 1.0 Baso % (Auto) 0.4 Lymph # (Auto) 1.52 [place] # (Auto) 1.2 H Eos # (Auto) 0.1 Baso # (Auto) 0.0 Abs Immat Gran (auto) 0.02 Absolute Neuts (auto) 6.1 Absolute Nucleated RBC 0.000 Nucleated RBC % 0.0 Sodium 137 Potassium 3.7 Chloride 109 H Carbon Dioxide 28 Anion Gap 0 L BUN 13 Creatinine 1.20 Estim Creat Clear Calc 60 Estimated GFR > 60 Glucose 98 Lactic Acid Calcium 9.8 Total Bilirubin 1.2 AST 18 ALT 14 Alkaline Phosphatase 66 Total Protein 6.0 L Albumin 3.6 Lipase Procalcitonin Urine Color Urine Appearance Urine pH Ur Specific [place] Urine Protein Urine Glucose (UA) Urine Ketones Ur Blood (Man) Urine Nitrate Urine Bilirubin Urine Urobilinogen Leukocyte Esterase Rfl Urine RBC Urine WBC Ur Squamous Epith Cells Urine Bacteria Urine Casts
[2024-06-22 14:00] VITALS: BP 130/83; PULSE 75; RESP 18; TEMP 36.8; O2SAT 98
--- NOTE | 2024-06-22 14:27 | PM.IMPN ---
Progress Note: A&P Assessment and Plan (1) Sepsis: Qualifiers: Sepsis type: sepsis due to unspecified organism Sepsis acute organ dysfunction status: without acute organ dysfunction Qualified Code(s): A41.9 - Sepsis, unspecified organism Code(s): A41.9 - Sepsis, unspecified organism Status: Acute Assessment and Plan: - meets SIRS criteria: HR, WBC - lactic acid normal and procalcitonin normal - fluid resuscitation received. - suspected source: Diverticulitis with small abscess - started on Zosyn - blood cultures drawn on 06/21 which is ngtd - UA: Trace leuks, 11-20 RBC (2) Diverticulitis of intestine with abscess and bleeding: Qualifiers: Diverticulitis site: large intestine Qualified Code(s): K57.21 - Diverticulitis of large intestine with perforation and abscess with bleeding Code(s): K57.81 - Diverticulitis of intestine, part unspecified, with perforation and abscess with bleeding Status: Acute Assessment and Plan: - CT abd/pelvis: 1. Sigmoid diverticulitis with small perisigmoid abscess. 2. Hematomas superficial to the common femoral arteries bilaterally, which may be subacute or chronic. - started on Zosyn on 06/21 - bowel rest; clear liquids which has been advanced as tolerated general surgery on board. - antiemetics and analgesics PRN - Xarelto continued, history of AAA s/p repair (3) Abnormal abdominal CT scan: Code(s): R93.5 - Abnormal findings on diagnostic imaging of other abdominal regions, including retroperitoneum Status: Acute Assessment and Plan: - CT of the abd/pelvis on 06/21 showed hematomas superficial to the common femoral arteries bilaterally, which may be subacute or chronic. - aorta w/runoff CTA (05/2020) 1. Aortobiiliac bypass grafts with completely occluded left side, reconstitution of the common femoral. Left posterior tibial dominant supply to the foot. 2. Short segment occlusion right iliac bypass graft at the inguinal canal with reconstitution, anterior and posterior tibial arteries identified at the ankle. 3. Prominent sigmoid colonic wall, could be under distention but if there are acute symptoms can't exclude mild colitis. Recommend vascular consult. - request records from [facility], compare once obtained. no flank pain. - continue Xarelto Plan Diet: Low-fiber diet GI Prophylaxis: Pantoprazole DVT Prophylaxis: SCDs, continue Xarelto Lines: Peripheral Code Status: Full code Subjective Date/time seen: 06/22/24 14:27 Interval history: No overnight events. Pain is getting better. Still sore in his lower abdomen. No fever chills. Review of Systems Review of Systems: All systems reviewed & are unremarkable except as noted in HPI and below Exam Narrative: GENERAL: Well-appearing, well-nourished, and in no acute distress. HEAD: Normocephalic, atraumatic. EYES: PERRLA and EOMI. ENT: Mucous membranes moist. NECK: Supple. CHEST: Clear to auscultation. No respiratory distress. HEART: Regular rate and rhythm ABDOMEN: Soft, + tender left lower quadrant without guarding or rebound EXTREMITIES: Normal range of motion SKIN: Warm, dry, no rash. NEURO: Alert and oriented x3. PSYCH: Normal mood and affect. Objective Data Vital Signs Vital Signs: Vital Signs - 24 hr 06/21/24 17:38 06/21/24 20:00 06/21/24 20:15 Temperature 98.6 F Pulse Rate 73 Respiratory Rate 18 Blood Pressure 136/92 H Pulse Oximetry 100 98 Oxygen Delivery Room Air Room Air 06/22/24 05:38 06/22/24 08:00 Temperature 98.5 F Pulse Rate 80 Respiratory Rate 18 Blood Pressure 140/92 H Pulse Oximetry 98 Oxygen Delivery Room Air Intake/Output Intake/Output: Intake & Output 06/19/24 06/20/24 06/21/24 06/22/24 23:59 23:59 23:59 23:59 Intake Total 2140 2146 Output Total 900 Balance 2140 1246 Meds/Results Medications: Active Medications Generic Name Dose Route Start Last Admin Trade Name Freq PRN Reason Stop Dose Admin Acetaminophen 650 mg 06/21/24 13:17 06/21/24 21:38 Acetaminophen 325 Mg Tablet PO 650 mg Q4H PRN Administration Mild Pain (1-3) or Fever Amlodipine Besylate 10 mg 06/22/24 09:00 06/22/24 08:12 Amlodipine Besylate 10 Mg Tablet PO 10 mg DAILY ARMANDO Administration Aspirin 81 mg 06/22/24 09:00 06/22/24 08:12 Aspirin 81 Mg Chewable Tablet PO 81 mg DAILY ARMANDO Administration Atorvastatin Calcium 40 mg 06/21/24 21:00 06/21/24 20:17 Atorvastatin 40 Mg Tablet PO 40 mg HS ARMANDO Administration Hydromorphone HCl 0.5 mg 06/21/24 13:26 Hydromorphone Hcl Inj (*Crx) 1 Mg/Ml Syr IV PUSH Q3H PRN Pain Rated 7-10 Piperacillin/Tazobactam/Dextrose 3.375 gm in 50 mls @ 100 mls/hr 06/21/24 19:00 06/22/24 11:35 Zosyn 3.375 Gm/Ns 50 Ml IVPB Infused Q6HR ARMANDO Infusion Losartan Potassium 25 mg 06/22/24 09:00 06/22/24 08:12 Losartan Potassium 25 Mg Tablet PO 25 mg DAILY ARMANDO Administration Morphine Sulfate 2 mg 06/21/24 13:21 06/22/24 10:30 Morphine Sulfate (*Crx) 2 Mg/Ml Inj IV PUSH 2 mg Q4H PRN Administration Pain Rated 7-10 Ondansetron HCl 4 mg 06/21/24 13:17 Ondansetron Inj 4 Mg/2 Ml Vial IV PUSH Q6H PRN Nausea And Vomiting Pantoprazole Sodium 40 mg 06/22/24 09:00 06/22/24 08:12 Pantoprazole Sodium Iv 40 Mg Vial IV PUSH 40 mg QAM ARMANDO Administration Rivaroxaban 20 mg 06/21/24 17:00 06/21/24 16:31 Rivaroxaban 20 Mg Tablet PO 20 mg DAILY@1700 ARMANDO Administration Radiology Results: ITS Impressions Abdomen/Pelvis CT 06/21/24 12:01 IMPRESSION: 1. Sigmoid diverticulitis with small perisigmoid abscess. 2. Hematomas superficial to the common femoral arteries bilaterally, which may be subacute or chronic. Labs Labs: Laboratory Results - last 24 hr 06/21/24 06/21/24 06/22/24 10:44 15:17 05:58 WBC 9.0 RBC 4.27 L Hgb 12.9 L Hct 38.5 L MCV 90.2 MCH 30.2 MCHC 33.5 RDW 12.6 Plt Count 143 L MPV 11.9 H Immature Gran % (Auto) 0.2 Neut % (Auto) 68.1 Lymph % (Auto) 16.9 L [place] % (Auto) 13.4 H Eos % (Auto) 1.0 Baso % (Auto) 0.4 Lymph # (Auto) 1.52 [place] # (Auto) 1.2 H Eos # (Auto) 0.1 Baso # (Auto) 0.0 Abs Immat Gran (auto) 0.02 Absolute Neuts (auto) 6.1 Absolute Nucleated RBC 0.000 Nucleated RBC % 0.0 Sodium 137 Potassium 3.7 Chloride 109 H Carbon Dioxide 28 Anion Gap 0 L BUN 13 Creatinine 1.20 Estim Creat Clear Calc 60 Estimated GFR > 60 Glucose 98 Lactic Acid 2.0 Calcium 9.8 Total Bilirubin 1.2 AST 18 ALT 14 Alkaline Phosphatase 66 Total Protein 6.0 L Albumin 3.6 Procalcitonin 0.1
[2024-06-22] MEDS: RIVAROXABAN 20 MG TABLET PO (17:00)
[2024-06-22] MEDS: ATORVASTATIN 40 MG TABLET PO (20:15)
[2024-06-22 20:55] VITALS: BP 129/85; PULSE 74; RESP 18; TEMP 36.3; O2SAT 97
[2024-06-22] MEDS: ACETAMINOPHEN 325 MG TABLET 650 MG PO (21:51)
[2024-06-23 04:15] VITALS: BP 115/81; PULSE 65; RESP 18; TEMP 36.5; O2SAT 98
[2024-06-23] MEDS: PIPERACILLN/TAZ 3.375GM/NS50ML 3.375 GM/50 ML BAG IVPB ×2 (06:13→11:12)
[2024-06-23 07:04] LABS: Basophils Absolute Auto 0.1 K/mm3 (0.0-0.1); Basophils Percent Auto 0.6 % (0.2-1.2); Eosinophils Absolute Auto 0.2 K/mm3 (0-0.3); Eosinophils Percent Auto 2.1 % (0-4.4); Hematocrit 42.4 % (42.0-52.0); Hemoglobin 14.2 g/dL (14.0-18.0); Immature Granulocyte Absolute 0.02 K/mm3 (0.00-0.031); Immature Granulocyte Percent A 0.2 % (0-0.5); Lymphocytes Absolute Auto 1.73 K/mm3 (0.9-3.2); Lymphocytes Percent Auto 19.3 % (18.3-44.2); Mean Corpuscular HGB Conc 33.5 g/dl (32-36); Mean Corpuscular Hemoglobin 30.3 pg (26-34); Mean Corpuscular Volume 90.6 fl (80-100); Mean Platelet Volume 12.8 fl (7.4-10.4); Monocytes Percent Auto 10.9 % (2.6-8.5); Neutrophils Percent Auto 66.9 % (45.5-73.1); Platelet Count Result 152 k/mm3 (150-375); Red Blood Count 4.68 M/mm3 (4.6-6.20); Red Cell Distribution Width 12.5 % (11.5-14.5)
[2024-06-23 07:42] LABS: Alanine Aminotransferase 15 U/L (6-50); Albumin Level 3.9 g/dL (3.5-5.1); Alkaline Phosphatase 65 U/L (38-126); Anion Gap 6 mmol/L (4-12); Aspartate Amino Transferase 21 U/L (17-59); Bilirubin,Total 0.9 mg/dL (0.2-1.3); Blood Urea Nitrogen 20 mg/dL (9-20); Calcium 10.6 mg/dL (8.4-10.2); Carbon Dioxide 26 mmol/L (22-30); Chloride 107 mmol/L (98-107); Estimated CRCL calculation 60 ml/min; Estimated Glomerular Filt Rate > 60; Glucose 94 mg/dL (65-110); Magnesium 2.2 mg/dL (1.6-2.3); Potassium 3.8 mmol/L (3.4-5.0); Sodium 139 mmol/L (137-145)
[2024-06-23 08:45] VITALS: O2SAT 98
[2024-06-23] MEDS: PANTOPRAZOLE SODIUM IV 40 MG VIAL IV PUSH (09:49)
[2024-06-23] MEDS: LOSARTAN POTASSIUM 25 MG TABLET PO (09:49)
[2024-06-23] MEDS: ACETAMINOPHEN 325 MG TABLET 650 MG PO ×2 (09:50→18:34)
[2024-06-23] MEDS: ASPIRIN 81 MG CHEWABLE TABLET PO (09:50)
[2024-06-23] MEDS: amLODIPine BESYLATE 10 MG TABLET PO (09:50)
--- NOTE | 2024-06-23 10:29 | P.PNGS_ITS ---
Progress Note: A&P Assessment and Plan (1) Diverticulitis of intestine with abscess: Code(s): K57.80 - Diverticulitis of intestine, part unspecified, with perforation and abscess without bleeding Status: Acute Assessment and Plan: exam improved and benign, fauzia low fiber diet, ok to dc home from surgical standpoint c cont abx and low fiber diet, f/u 2 wks Subjective Subjective Date/Time Seen: 06/23/24 10:29 Interval history: feels good, pain improved and largely resolved, fauzia low fiber diet Review of Systems Review of Systems: All systems reviewed & are unremarkable except as noted in HPI and below Exam Const: General: cooperative, comfortable and no acute distress Resp: Auscultation: clear to auscultation bilaterally Cardio: Rate: regular rate Rhythm: regular rhythm GI: Inspection: normal to inspection and non-distended GI Palp: No abdominal tenderness, Yes Soft to palpation, No Firmness to palpation present (GI), No Tenderness to palpation present (GI), No Guarding due to palpation present (GI) and No Rigid due to palpation Objective Data Vital Signs Vital Signs: Vital Signs - 24 hr 06/22/24 14:00 06/22/24 20:55 06/22/24 20:00 Temperature 36.8 C 36.3 C L Pulse Rate 75 74 Respiratory Rate 18 18 Blood Pressure 130/83 129/85 Pulse Oximetry 98 97 Oxygen Delivery Room Air 06/23/24 04:15 06/23/24 08:45 Temperature 36.5 C Pulse Rate 65 Respiratory Rate 18 Blood Pressure 115/81 Pulse Oximetry 98 98 Oxygen Delivery Room Air Intake/Output Intake/Output: Intake & Output 06/20/24 06/21/24 06/22/24 06/23/24 23:59 23:59 23:59 23:59 Intake Total 2140 3036 340 Output Total 3050 300 Balance 2140 -14 40 Meds/Results Medications: Active Medications Generic Name Dose Route Start Last Admin Trade Name Freq PRN Reason Stop Dose Admin Acetaminophen 650 mg 06/21/24 13:17 06/23/24 09:50 Acetaminophen 325 Mg Tablet PO 650 mg Q4H PRN Administration Mild Pain (1-3) or Fever Amlodipine Besylate 10 mg 06/22/24 09:00 06/23/24 09:50 Amlodipine Besylate 10 Mg Tablet PO 10 mg DAILY ARMANDO Administration Aspirin 81 mg 12/03/24 09:00 06/23/24 09:50 Aspirin 81 Mg Chewable Tablet PO 81 mg DAILY ARMANDO Administration Atorvastatin Calcium 40 mg 06/21/24 21:00 06/22/24 20:15 Atorvastatin 40 Mg Tablet PO 40 mg HS ARMANDO Administration Hydromorphone HCl 0.5 mg 06/21/24 13:26 Hydromorphone Hcl Inj (*Crx) 1 Mg/Ml Syr IV PUSH Q3H PRN Pain Rated 7-10 Piperacillin/Tazobactam/Dextrose 3.375 gm in 50 mls @ 100 mls/hr 06/21/24 19:00 06/23/24 06:13 Zosyn 3.375 Gm/Ns 50 Ml IVPB 100 mls/hr Q6HR ARMANDO Administration Losartan Potassium 25 mg 06/22/24 09:00 06/23/24 09:49 Losartan Potassium 25 Mg Tablet PO 25 mg DAILY ARMANDO Administration Morphine Sulfate 2 mg 06/21/24 13:21 06/22/24 21:50 Morphine Sulfate (*Crx) 2 Mg/Ml Inj IV PUSH 2 mg Q4H PRN Administration Pain Rated 7-10 Ondansetron HCl 4 mg 06/21/24 13:17 Ondansetron Inj 4 Mg/2 Ml Vial IV PUSH Q6H PRN Nausea And Vomiting Pantoprazole Sodium 40 mg 06/22/24 09:00 06/23/24 09:49 Pantoprazole Sodium Iv 40 Mg Vial IV PUSH 40 mg QAM ARMANDO Administration Rivaroxaban 20 mg 06/21/24 17:00 06/22/24 17:00 Rivaroxaban 20 Mg Tablet PO 20 mg DAILY@1700 ARMANDO Administration Radiology Results: ITS Impressions Abdomen/Pelvis CT 06/21/24 12:01 IMPRESSION: 1. Sigmoid diverticulitis with small perisigmoid abscess. 2. Hematomas superficial to the common femoral arteries bilaterally, which may be subacute or chronic. Labs Labs: Laboratory Results - last 24 hr 06/23/24 05:55 WBC 9.0 RBC 4.68 Hgb 14.2 Hct 42.4 MCV 90.6 MCH 30.3 MCHC 33.5 RDW 12.5 Plt Count 152 MPV 12.8 H Immature Gran % (Auto) 0.2 Neut % (Auto) 66.9 Lymph % (Auto) 19.3 [place] % (Auto) 10.9 H Eos % (Auto) 2.1 Baso % (Auto) 0.6 Lymph # (Auto) 1.73 [place] # (Auto) 1.0 H Eos # (Auto) 0.2 Baso # (Auto) 0.1 Abs Immat Gran (auto) 0.02 Absolute Neuts (auto) 6.0 Absolute Nucleated RBC 0.000 Nucleated RBC % 0.0 Sodium 139 Potassium 3.8 Chloride 107 Carbon Dioxide 26 Anion Gap 6 BUN 20 Creatinine 1.20 Estim Creat Clear Calc 60 Estimated GFR > 60 Glucose 94 Calcium 10.6 H Magnesium 2.2 Total Bilirubin 0.9 AST 21 ALT 15 Alkaline Phosphatase 65 Total Protein 7.0 Albumin 3.9
[2024-06-23 14:00] VITALS: BP 115/60; PULSE 64; RESP 16; TEMP 36.4; O2SAT 96
[2024-06-23] MEDS: RIVAROXABAN 20 MG TABLET PO (18:34)
--- NOTE | 2024-06-23 18:51 | P.DS_ITS ---
DS: Admitting Diagnosis Discharge Date 06/23/24 Admitting Diagnosis Abdominal Pain DS: Discharge Diagnosis Discharge Diagnosis (1) Sepsis: Qualifiers: Sepsis type: sepsis due to unspecified organism Sepsis acute organ dysfunction status: without acute organ dysfunction Qualified Code(s): A41.9 - Sepsis, unspecified organism Code(s): A41.9 - Sepsis, unspecified organism Status: Acute (2) Diverticulitis of intestine with abscess and bleeding: Qualifiers: Diverticulitis site: large intestine Qualified Code(s): K57.21 - Diverticulitis of large intestine with perforation and abscess with bleeding Code(s): K57.81 - Diverticulitis of intestine, part unspecified, with perforation and abscess with bleeding Status: Acute (3) Abnormal abdominal CT scan: Code(s): R93.5 - Abnormal findings on diagnostic imaging of other abdominal regions, including retroperitoneum Status: Acute DS: Summary Hospital Course Hospital Course: Patient presents with abdominal pain. He let SIRS criteria with elevated HR and WBC. Lactic acid and procalcitonin normal. Fluid resuscitation received. Suspected source: Diverticulitis with small abscess. CT abd/pelvis showing sigmoid diverticulitis with small perisigmoid abscess. He was started on Zosyn. BCx allie growth to date. He was treated with bowel rest. General surgery on board. As his condition improved, he was started on clear liquids and advanced as tolerated. Xarelto continued due to his history of AAA s/p repair. CT of the abd/pelvis on 06/21 also showed hematomas superficial to the common femoral arteries bilaterally, which may be subacute or chronic. Aorta w/runoff CTA (05/2020) 1. Aortobiiliac bypass grafts with completely occluded left side, reconstitution of the common femoral. Left posterior tibial dominant supply to the foot. 2. Short segment occlusion right iliac bypass graft at the inguinal canal with reconstitution, anterior and posterior tibial arteries identified at the ankle. 3. Prominent sigmoid colonic wall, could be under distention but if there are acute symptoms can't exclude mild colitis. Recommend vascular consult. Received records from [facility] of two abdominal and iliofemoral arterial CT angiograms dated 01/02/21 and 01/05/21. He had presented at that time with calf pain concerning for ischemia and found to have aorto bifemoral bypass graft occlusion of the left iliac limb and underwent thrombectomy on 01/02/21. The repeat imaging dated 01/05/21 showing a 2.6cm hematoma within the left inguinal region. Hgb remained essentially normal during his hospital course. It was felt the findings of hematomas superficial to the common femoral arteries bilaterally are chronic. He overall did well and was able to be dicahrged home on 06/23/24 Status at Discharge Cognitive/behavioral status at discharge: stable Time Spent with Patient Time attestation: Total time spent providing and/or coordinating discharge services: 35 minutes Time spent: Greater than 30 minutes Exam Narrative: AF 97.5 115/60 64 16 96% ra Gen - NARD Chest - CTA bilaterally, nml RR CV - RRR S1/S2 Abd - Soft, minimal tenderness, +BS Ext - No pedal edema Psych - Nml mood and affect Skin - Warm and dry DS: Data Data Completed and Pending Labs on day of discharge: Labs from last 24 hours 06/23/24 05:55 WBC 9.0 RBC 4.68 Hgb 14.2 Hct 42.4 MCV 90.6 MCH 30.3 MCHC 33.5 RDW 12.5 Plt Count 152 MPV 12.8 H Immature Gran % (Auto) 0.2 Neut % (Auto) 66.9 Lymph % (Auto) 19.3 [place] % (Auto) 10.9 H Eos % (Auto) 2.1 Baso % (Auto) 0.6 Lymph # (Auto) 1.73 [place] # (Auto) 1.0 H Eos # (Auto) 0.2 Baso # (Auto) 0.1 Abs Immat Gran (auto) 0.02 Absolute Neuts (auto) 6.0 Absolute Nucleated RBC 0.000 Nucleated RBC % 0.0 Sodium 139 Potassium 3.8 Chloride 107 Carbon Dioxide 26 Anion Gap 6 BUN 20 Creatinine 1.20 Estim Creat Clear Calc 60 Estimated GFR > 60 Glucose 94 Calcium 10.6 H Magnesium 2.2 Total Bilirubin 0.9 AST 21 ALT 15 Alkaline Phosphatase 65 Total Protein 7.0 Albumin 3.9 Preliminary micro results at discharge 06/21/24 13:12 Blood Culture - Preliminary Blood 06/21/24 13:12 Blood Culture - Preliminary Blood Discharge Plan Discharge Attending physician on discharge: Jimmie Bateman Consulting providers: Courtney Lerner Discharging Clinician: Jimmie Bateman Anticipated Discharge Date/Time: 06/23/24 19:03 Patient Disposition: Home, Self-Care Activity: no straining and as tolerated Diet: low fiber Discharge Instructions: Please complete your antibiotic course even if you are starting to feel well. Take precautions to avoid falls. Rise slowly from a lying or sitting position. Pause before standing or walking. Contact your doctor or call 911 and come to the Emergency Room if you have any type of trauma, lightheadedness with standing or other worrisome symptoms. Avoid NSAIDs (ibuprofen, naproxen, Aleve). Tylenol is safe to take. Follow-up with your primary care provider in 1-2 weeks. Please call for appointment. Follow-up with General Surgery in 2 weeks. Please call for an appointment. Thank you for using [facility] for your health care needs. Patient Instructions: Antibiotic Form, Pain Management (DC) Stand Alone Forms: General Discharge Information Follow-up/Referrals: Teresita,MD Keegan [Primary Care Provider] - Call for Appointment Courtney Lerner MD [Physician] - 2 Weeks Discharge Medications: New hydrocodone-acetaminophen 5-325 mg tablet 1 tablet PO Q6H PRN (Reason: pain) Qty: 20 0RF metronidazole 500 mg tablet 500 mg PO Q12H 10 Days Qty: 20 0RF ciprofloxacin HCl 500 mg tablet 500 mg PO Q12H Qty: 20 0RF Continued atorvastatin 40 mg Tablet 40 mg PO HS amlodipine 10 mg Tablet 10 mg PO DAILY losartan 25 mg Tablet 25 mg PO DAILY aspirin 81 mg Tablet,Chewable 81 mg PO DAILY Xarelto 20 mg Tablet 20 mg PO DAILY Rx Instructions: must administer with evening meal Date of admission: 06/21/24 12:36 Primary Care Provider: TeresitaKeegan Admitting Provider: Mercedes Colbert Attending physician on admission: Mercedes Colbert Condition: Stable Hospitalist MIPS Heart Failure (Exclusion) Patient has history of Heart Transplant or Left Ventricular Assistive Device?: No IF YES, STOP HERE Heart Failure (Qualifier) Patient has current or prior documentation of LVEF less than or equal to 40%, or mod/servere depressed LVSF?: No IF NO, STOP HERE
== END 2024-06-23 19:16 | disposition home or self-care (01) ==
LOC: ANHED 14:25 → ANH3MEDSUR 06-22 10:33
PROVIDERS: Internal Medicine; Student in an Organized Health Care Education/Training Program; Admitting Provider Internal Medicine; Emergency Provider Emergency Medicine; PCP Hospitalist; Visit Provider Internal Medicine
DX: A41.9 Sepsis, unspecified organism (principal); K57.21 Diverticulitis of large intestine with perforation and abscess with bleeding; R93.5 Abnormal findings on diagnostic imaging of other abdominal regions, including retroperitoneum; I25.10 Atherosclerotic heart disease of native coronary artery without angina pectoris; Z95.1 Presence of aortocoronary bypass graft; Z86.79 Personal history of other diseases of the circulatory system; Z87.891 Personal history of nicotine dependence; Z79.82 Long term (current) use of aspirin; Z79.01 Long term (current) use of anticoagulants; Z79.899 Other long term (current) drug therapy
CPT/HCPCS: 36415; 74177; 80053; 81001; 83605; 83690; 83735; 84145; 85025; 87040; 96365; 96375; 99285; A9270; G0378; G0379; J1171; J2270; J2470; J2543; J7030; Q9967

== ENCOUNTER 2025-01-17 17:21 | Inpatient (IN) | payer OTHER, SELFPAY ==
--- NOTE | ~2025-01-17 | CT_ITS ---
EXAMINATION: CT abdomen pelvis w con DATE: 01/17/2025 19:36 INDICATION: generalized abdominal pain TECHNIQUE: Computed tomography (CT) of the abdomen and pelvis was performed with 100 mL Omnipaque-350 intravenous contrast. Automated exposure control and iterative reconstruction technique were employe d. The dose-length product was 335.03 mGy-cm. COMPARISON: 06/21/2024. FINDINGS: Lower thorax: Unremarkable Liver: Subcentimeter hypodensities, too small to characterize but most likely represent cysts or alyssa ngiomas. Biliary/Gallbladder: Gallbladder is normal. No bile duct dilation. Pancreas: No mass or duct dilation. Spleen: Normal. Adrenals:No mass. Kidneys: No suspicious mass, obstructing stone, or hydronephrosis. Bilateral renal scarring. GI tract: No small or large bowel dilation. Moderate wall edema involving the distal ileum. Severe wa ll edema involving the entire colon. Uniform bowel wall enhancement. Normal appendix. Mesentery/Peritoneum: No ascites, mass, or free air. Retroperitoneum: No mass. Atherosclerotic calcifications of intra-abdominal arterial vessels. Aortobi femoral graft. Graft appears patent. 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 The SMA and portal veins are patent. Pelvis: Pelvic organs are within normal limits. Soft Tissues: Soft tissues and body wall unremarkable. Bones: No acute osseous finding. IMPRESSION: CT findings of ileitis and diffuse colitis. Reviewed, dictated and finalized at location K.
--- OUTSIDE RECORDS SUMMARY | 2025-01-17 17:23 | XMS_ITS | Continuity of Care Document ---
Author Organization [facility] Address [address] [place] [address] [address] [place] [address] Phone Care Team Providers Care Road Mechanic Name Role Phone Patricia Gibbs Unavailable Unavailable Procedures Procedure Date Remove Foreign Body From Eye Advance Directives Directive Yes / No Effective Date File Name No Information Encounters Encounter Description Practice Location Reason(s) For Visit Diagnoses Date Provider Providers Copied on Encounter [facility], [address] [place] [address] [address], [place], [place], [id number], [place] tel:[phone] SEC [facility] No Information 0-200 7 Bernie Gomez. [address] [facility] , [address], [place], [address], [place]. tel:[phone] Family History Family Member Type Diagnosis Age At Onset No Information Payers Payer name Insurance type Covered constitution party ID Authoriza tion(s) No Information Social History Type Description Quantity Date Captured Comments Sex Male Smoking Status No Information Chief Complaint And Reason For Visit No Information Reason For Referral Reason For Referral No Information History Of Present Illness Encounter Date Complaint History Of Prese nt Illness No Information Functional Status Date Functional Assessmen t No Information Instructions Date Instruction Additional Infor mation No Information Assessments Type Assessment Date No Information Patient Care Teams Name Effective Dates (start - stop) Status Members No Information
--- OUTSIDE RECORDS SUMMARY | 2025-01-17 17:23 | XMS_ITS | Encounter Summary ---
Author Organization [facility] Address [address] [place] [address] Care Team Providers Care Table Setter Name Role Phone Brooks Kaplan MD Unavailable [phone] Saji Hale MD Unavailable [phone] Estrellita Han MD Unavailable [phone] Katelin Tripp MD Primary Care Provider [phone] Tara Doan MD Primary Care Provider Encounter Details Date Type Department Care Team (Late st Contact Info) Description 11/21/[address] [facility] [address] [facility] [address] [place] [address] Katelin Tripp MD [address] [facility] [address] [place], [place] [id number] Social History Tobacco Use Types Packs/Day Years Used Date Smoking Tobacco: Former Cigarettes 1 40.9 1 980 - 06/2020 Smokeless Tobacco: Never Alcohol Use Standard Drinks/Week Comments Never 0 (1 standard drink = 0.6 oz pur e alcohol) AUDIT-C Answer Date Recorded Q1: How often do you have a drink containing alc ohol? Never 07/03/2020 Average Number of Drinks Not on file 020 Frequency of Binge Drinking Not on file 06/20 Sex and Gender Information Value Date Recorded Sex Assigned at Not on file Legal Sex Male 3:45 AM [employer] Gender Identity Not on file Sexual Orientation Not on file documented as of this encounter Plan of Treatment Scheduled Procedures Name Priority Associated Diagnoses Date/Ti me COLONOSCOPY Screening for colon cancer documented as of this encounter Visit Diagnoses Not on filedocumented in this encounter Care Teams Table Setter Relationship Specialty Start Date End Date Katelin Tripp MD [address] [place] [address] PCP - General Internal Medicine 11/11/22 01/09/24 Tara Doan MD [address] [facility] [address] [address] [address] [facility] [phone] [place] [address] PCP - General 01/10/24 Brooks Kaplan MD Consulting Physician Vascular Surgery 06/20/20 Saji Hale MD [address] [place] [address] Consulting Physician Plastic Surgery 06/20/20 Estrellita Han MD [address] [place] [address] Referring Physician Plastic Surgery 01/18/21 documented as of this encounter
--- OUTSIDE RECORDS SUMMARY | 2025-01-17 17:23 | XMS_ITS | Referral Summary ---
Author Organization [facility] Address [address] [place] [address] Care Team Providers Care Septic Cleaner Name Role Phone Brooks Kaplan MD Unavailable Saji Hale MD Unavailable [phone] Estrellita Han MD Unavailable [phone] Tara Doan MD Primary Care Provider Encounters Date Type Department Care Team Description 12/27/2024 3:15 PM CDT Office Visit [facility] [address] [place] [address] Tara Doan MD Primary hyperparathyroidism (Primary Dx); Peripheral artery disease (CMS/HCC) (HCC); Primary hypertension; Colon cancer screening from Last 3 Months Allergies No known active allergies Medications psyllium husk (KONSYL) 6 gram packetIndications :Diverticulosis Take 1 packet (6 g total) by mouth daily 100 packet 3 5 Active cholecalciferol (VITAMIN D-3) 2000 unit capsule Take 1 capsule (2,000 Units total) by mouth daily 90 capsule 3 5 Active rivaroxaban (XARELTO) 2.5 mg tabletIndications :Peripheral artery disease Take 1 tablet (2.5 mg total) by mouth 2 (two) times a day 180 tablet 3 5 Active losartan (COZAAR) 25 mg tabletIndications :Primary hypertension Take 1 tablet (25 mg total) by mouth daily 90 tablet 3 5 12/28/19 26 Active atorvastatin (LIPITOR) 40 mg tabletIndications :Peripheral artery disease Take 1 tablet (40 mg total) by mouth nightly 90 tablet 3 5 Active amLODIPine (NORVASC) 10 mg tabletIndications :Primary hypertension Take 1 tablet (10 mg total) by mouth daily 90 tablet 3 5 12/28/19 26 Active aspirin 81 mg chewable tabletIndications :Peripheral artery disease Take 1 tablet (81 mg total) by mouth daily 90 tablet 3 5 12/28/19 26 Active atorvastatin (LIPITOR) 40 mg tabletIndications :Peripheral artery disease Take 1 tablet (40 mg total) by mouth nightly 90 tablet 3 5 12/28/19 25 Discontinu ed(Reorder ) aspirin 81 mg chewable tabletIndications :Peripheral artery disease Take 1 tablet (81 mg total) by mouth daily 90 tablet 3 5 12/28/19 25 Discontinu ed(Reorder ) amLODIPine (NORVASC) 10 mg tabletIndications :Primary hypertension Take 1 tablet (10 mg total) by mouth daily 90 tablet 3 5 12/28/19 25 Discontinu ed(Reorder ) losartan (COZAAR) 25 mg tabletIndications :Primary hypertension Take 1 tablet (25 mg total) by mouth daily 90 tablet 3 5 12/28/19 25 Discontinu ed(Reorder ) rivaroxaban (XARELTO) 2.5 mg tabletIndications :Peripheral artery disease Take 1 tablet (2.5 mg total) by mouth 2 (two) times a day 180 tablet 3 5 12/28/19 25 Discontinu ed(Reorder ) Active Problems Problem Noted Date Diagnosed Date Primary hyperparathyroidism 09/10/2024 Overview (09/10/2024): Diagnosed based on asymptomatic hypercalcemia seen on routine labs with subsequently elevated PTH Ca 11.1, PTH 98 Discussed with patient clinical course that is largely dependent on follow up testing Discussed that although patient is asymptomatic at this time, he may require parathyroidectomy in the future if evidence of renal or bone disease, or if he becomes symptomatic No history of fractures, nephrolithiasis -DEXA scan ordered -vitamin d level to be obtained today -24 hour urine calcium collection ordered -Pending test results will consider getting patient in with Endocrine v Endocrine surgery Assessment & Plan (12/27/2024 5:13 PM CDT): Diagnosed based on asymptomatic hypercalcemia seen on routine labs with subsequently elevated PTH Ca 11.1, PTH 98 Vitamin d of 23 (goal 30) No prior kidney stones, no stones noted on CTA from September (deferring renal US at this time) No history of frailty fractures GFR >60 -started on vitamin d supplementation (2000 units daily) -patient still needs to obtain DEXA, will refer to Endocrine surgery if T score < -2.5 -patient still needs urine 24 hr calcium, will refer to Endocrine surgery if urine calcium >400 mg -discussed important of completing workup with patient Diverticulosis 07/29/2024 Overview (07/29/2024): Hospitalization at OSH Jun 2024 for diverticulitis (at OSH, records not available) -continue metamucil Hypercalcemia 07/29/2024 Overview (07/29/2024): Calcium elevated to 10.9 at last visit -repeating CMP and PTH today History of tobacco use 06/26/2023 Assessment & Plan (06/26/2023 7:30 PM IT SECURITY MANAGER): History of smoking 40 years 1 ppd. He quit smoking 3 years ago. - CT Lung cancer 11/13/22 LungRADS category 2 (benign) - Continue yearly CT screening Healthcare maintenance 06/25/2021 Assessment & Plan (03/15/2024 6:48 PM CDT): -CT lung 12/[address]22 category [address] screening [address] -due for colonoscopy, referral placed at last visit, provided patient with phone number to schedule -patient has refused vaccinations in the past, will address this the next appointment. Assessment & Plan (06/26/2023 7:30 PM IT SECURITY MANAGER): -CT lung 12/2022 category 2. Due 12/2023 -Due for colonoscopy (will defer until patient establishes insurance) -Declines COVID/flu Hypertension 01/04/2021 Overview (07/29/2024): At goal on current regimen of losartan 25, amlodipine 10 -continue current regimen Assessment & Plan (12/27/2024 5:13 PM CDT): Well controlled Orders: losartan (COZAAR) 25 mg tablet; Take 1 tablet (25 mg total) by mouth daily amLODIPine (NORVASC) 10 mg tablet; Take 1 tablet (10 mg total) by mouth daily Assessment & Plan (03/15/2024 6:47 PM CDT): Patient is at goal with current regimen, per his home BP readings -continue monitoring blood pressure at home -continue losartan 25 mg daily, amlodipine 10 mg daily Assessment & Plan (06/26/2023 7:30 PM IT SECURITY MANAGER): BP 137/69 -Will continue to monitor -Continue Amlodipine 10 mg daily and Losartan 25 mg daily. Assessment & Plan (12/27/2022 1:26 PM CDT): Much improved at today's appointment. - Check BMP, Mg today - BP Cuff unavailable in clinic, offer if available at next visit - Continue current regimen - DASH diet literature provided Assessment & Plan (01/16/2021 7:12 AM CDT): - BP 208/112 on admission - Requiring several PRN doses of medication for BP control - Started amlodipine 01/04,Lasix 20mg BID 01/06, now daily. continue PRN anti-HTN medications for SBP > 160 - Q4 hrs vital signs Critical lower limb ischemia 01/02/2021 Assessment & Plan (01/19/2021 8:45 AM CDT): - Underwent aortobifem 06/2015 with b/l limb occlusion s/p revision 06/11/20 with bovine pericardial patch angioplasty after endarterectomy of cahto common femoral artery and proximal SFA, stent angioplasty of infrarenal aorta w/ coverage with Bath excluder cuffs w/ extension into both limbs, and bilateral groin flaps (PRS) who presents as a transfer with acute onset left calf pain. He had not been taking his prescribed Xarelto. - CTA 01/02: demonstrated left graft occlusion with reconstitution at the distal left femoral iliac, with distal occlusion in the tibial vessels with no runoff in the left leg. - OR 01/02 emergently for L brachial cutdown and suction thrombectomy c/b tibial occlusion s/p below-knee cutdown and tibial collateral cleanout, L leg fasciotomy x 2 - KENNETH and TTE without thrombus - Continue heparin infusion, aspirin and statin while inpatient and encourage compliance at discharge - Hematology consult for difficulty with becoming therapeutic on heparin and unclear source of emboli - CTA C/A/P 01/[address] evidence of an embolic source to account for patient's left limb ischemia. - Bleeding from left lateral fasciotomy 01/09, sutures removed during AM rounds, s/p OR for left lateral fasciotomy closure. - PRS consulted 01/10 for LLE medial fasciotomy skin grafting - OR 01/16 for secondary closure of medial fasciotomy with drain placement by PRS - Q4 hrs neurovascular checks - Pain control with scheduled APAP and oxycodone PRN - PT/OT, OOB, activity as tolerated - Drain output remained stable with therapeutic PTT on heparin infusion - Transitioned to Xarelto 01/18 afternoon Wound of left leg 01/02/2021 Overview (01/15/2021): Added automatically from request for surgery [id number] Acute blood loss anemia 06/12/2020 Assessment & Plan (06/16/2020 7:41 AM IT SECURITY MANAGER): - Pre op Hgb 15.4, then 8.6 post op. Transfused x1. on 06/12. 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 Assessment & Plan (01/03/2021 7:38 PM CDT): - hx of aortobifemoral bypass (Chaz 2014) c/b occlusion with recanalization, thrombectomy and distal bypass revision (Rosaura 05/2020) - presented 01/02 with [place] 2x acute limb ischemia 2/2 to occlusion of L ABF limb - OR 01/02 for L iliac suction thrombectomy via L brachial cutdown, tibial thrombectomy from BK-pop cutdown, 4-compartment fasciotomies - wound vac in place on medial fasciotomy site, lateral fasciotomy site closed - pulse exam: palpable L radial and L DP - cards c/s: r/o embolic phenomenon, normal intra-op KENNETH and TTE - therapeutic hep gtt on nomogram - daily ASA - goal SBP 100-160 - q2h NVCs - regular diet - OOB as tolerated Assessment & Plan (01/19/2021 8:45 AM CDT): - KENNETH intra-op without findings; trace MR and AI, tricuspid valve is normal, no PFO, no evidence of thrombus in the left atrial appendage or aorta - TTE completed 01/03 with normal LV size is, LVEF 71%, no clot or vegetations noted - Hematology consulted for evaluation of arterial thrombus, workup obtained per Hematology recommendations - Recommended to continue heparin infusion while inpatient and transition to Xarelto at discharge - Antithrombin re-checked, 69. Hematology to follow up as an outpatient Assessment & Plan (06/20/2020 6:50 AM IT SECURITY MANAGER): - s/p b/l redo groins, b/l iliac thrombecomy, L SFA thrombectomy, aortic cuffX2 and b/l iliac stent for thrombus coverage, b/l ABF limb to sfa patch, b/l rectus flap 06/11. - Continue ASA and statin - Transition from heparin gtt to rivaroxaban load 15mg BID 21 days - INR 2.1 with persistent repeat, Vitamin K 5mg x1 and will re-evaluate - Ambulate with PT, tolerating OOBTC, no hip flexion > 45 degrees. Monitor drain outputs (all PRS). #2 LEFT thigh, #4 RIGHT groin- likely to be removed today - Bilateral groin drains removed per PRS - US bilateral groins and thighs: small left groin fluid collection - Wound care: incisions open to air - Pain control - PT needs to reevaluate patient for discharge, likely does not have insurance coverage for rehab and will need to go home. Per SW note he plans to stay with an aunt with less stairs. 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 Patient has been stable on asa + xarelto 20 daily since 2019, but was lost to follow up with Vascular surgery Bleeding complications: diverticular bleed iso acute diverticulitis Jun 2024 at OSH -continuing asa 81, lipitor 40 -decreasing xarelto 20 daily to xarelto 2.5 bid per Voyager trial, however have placed referral for patient to be seen by his original vascular surgeon and would appreciate their input regarding dosing Assessment & Plan (12/27/2024 5:13 PM CDT): [facility] Orders: rivaroxaban (XARELTO) 2.5 mg tablet; Take 1 tablet (2.5 mg total) by mouth 2 (two) times a day atorvastatin (LIPITOR) 40 mg tablet; Take 1 tablet (40 mg total) by mouth nightly aspirin 81 mg chewable tablet; Take 1 tablet (81 mg total) by mouth daily Assessment & Plan (03/15/2024 6:47 PM CDT): History of PAD s/p bilateral aortobifem 06/2015 with bilateral limb occlusion s/p revision 06/11/20 c/b left graft occlusion requiring fasciotomy. -continuing daily aspirin, atorvastatin 40 mg daily -continuing Xarelto 20 mg daily. Per Hematology note in 2020 (01/05/21), patient will require lifelong anticoagulation -patient hasn't been seen by vascular surgery outpatinet since arterial occlusion leading to hospitalization December 2020. Placed referral to see if there is further monitoring or imaging they would like to obtain. Assessment & Plan (06/26/2023 7:30 PM IT SECURITY MANAGER): History of PAD s/p bilateral aortobifem 06/2015 with bilateral limb occlusion s/p revision 06/11/20 c/b left graft occlusion requiring fasciotomy. He last followed up with plastic surgery on 04/26/2021. Based on notes he was expected to continue following with plastics and establish with vascular surgery. However the patient was unaware that he was due to see surgery. -Continue Atorvastatin 40 mg daily -Continue Xarleto 20 mg daily -Continue Amlodipine 10 mg daily -Due for follow up with vascular surgery and plastic surgery. Sent new referrals and provided patient with scheduling number. Assessment & Plan (12/27/2022 1:25 PM CDT): No new symptoms. - Check Lipid Panel today - Continue Current Regimen Aortoiliac occlusive disease 07/31/2015 Resolved Problems Problem Noted Date Diagnosed Date Resolved Date Colon cancer screening 06/26/202307/29 Uninsured 06/26/2023 07/29/2024 Screening for HIV (human imm unodeficiency virus) 11/15/2022 07/29/2024 Overview (11/15/2022): Ordered 10/2022 Need for hepatitis C screening test 11/15/2022 07/29/2024 Overview (11/15/2022): Ordered 10/2022 Tobacco use 11/15/2022 07/29/2024 Overview (11/15/2022): Patient has 30-45 pack year history (1-1.5 pack for 35 years, quit in the last 10 years) - Plan for CT Lung Cancer Screening (ordered 10/2022) Neuropathy 06/25/2021 07/29/2024 Overview (11/15/2022): Patient has self tapered off gabapentin and feels his neuropathy and lower extremity pain has since improved. - Discontinued Gabapentin. Immunizations Immunization Administration Dates Next Due Tdap 09/01/2013 Social History Tobacco Use Types Packs/Day Years Used Date Smoking Tobacco: Former Cigarettes 1 40.9 1 980 - 06/2020 Smokeless Tobacco: Never Tobacco Cessation:Counseling Given: Not Answered Alcohol Use Standard Drinks/Week Comments Never 0 (1 standard drink = 0.6 oz pur e alcohol) AUDIT-C Answer Date Recorded Q1: How often do you have a drink containing alc ohol? Never 07/03/2020 Average Number of Drinks Not on file 020 Frequency of Binge Drinking Not on file 06/20 Hunger Vital Sign Answer Date Recorded Within the past 12 months, y ou worried that your food would run out before you got the money to buy more. Never true 09/10/19 25 Within the past 12 months, t he food you bought just didn't last and you didn't have money to get more. Never true 09/10/2024 Sex and Gender Information Value Date Recorded Sex Assigned at Not on file Legal Sex Male 3:45 AM IT SECURITY MANAGER Gender Identity Not on file Sexual Orientation Not on file Last Filed Vital Signs Vital Sign Reading Time Taken Comments Blood Pressure 121/79 12/27/2024 2:59 PM CDT Pulse 56 12/27/2024 2:59 PM CDT Temperature 36.7 C (98 F) 12/27/2024 2:59 PM CDT Respiratory Rate 18 12/27/2024 2:59 PM CDT Oxygen Saturation 100% 12/27/2024 2:59 PM CDT Inhaled Oxygen Concentration - - Weight 74.6 kg (164 lb 6.4 oz) 12/27/2024 2:59 P M CDT Height 177.8 cm (5' 10) 09/10/2024 8:39 AM IT SECURITY MANAGER Body Mass Index 23.59 09/10/2024 8:39 AM IT SECURITY MANAGER Plan of Treatment Scheduled Procedures Name Priority Associated Diagnoses Date/Ti me COLONOSCOPY Screening for colon cancer Medical Devices Implanted Type Area Machine Filler Device Identifier Shelf Expiration Date Model / Serial / Lot Movli [id number] Vascu-Guard 8x.8cm Peripheral Patch Vascular Bovine Pericardium - [id number] Implanted:Qty: 1 on 06/11/2020 by Brooks Kaplan MD at [facility] N/A: Groin Movli 02/01/2025 [id number] / / [id number] Description:Femoral artery Movli [id number]-[id number] Vascu-Guard 8x.8cm Peripheral Patch Vascular Bovine Pericardium - [id number] Implanted:Qty: 1 on 06/11/2020 by Brooks Kaplan MD at [facility] N/A: Hu Eachbaby Jalil 02/01/2025 [id number] / / [id number] [employer] [id number] 23mm 19-21mm 3.3cm Aorta Graft Endovascular - [id number] - [id number] Implanted:Qty: 1 on 06/11/2020 by Brooks Kaplan MD at [facility] N/A: Aorta [employer] [id number] 12/13/2022 [id number] / [id number] / [employer] [id number] 23mm 19-21mm 3.3cm Aorta Graft Endovascular - [id number] - [id number] Implanted:Qty: 1 on 06/11/2020 by Brooks Kaplan MD at [facility] N/A: Aorta [employer] [id number] 12/13/2022 [id number] / [id number] / Bard Peripheral Vascular [id number] Lifestream 10mm 58mm 80cm Balloon Expandable Low Profile Cover - [id number] Implanted:Qty: 1 on 06/11/2020 by Brooks Kaplan MD at [facility] N/A: Iliac Bard Peripheral Vascular 05/20/2022 [id number] / / Description:Right Bard Peripheral Vascular [id number] Lifestream 10mm 58mm 80cm Balloon Expandable Low Profile Cover - [id number] Implanted:Qty: 1 on 06/11/2020 by Brooks Kaplan MD at [facility] N/A: Iliac Bard Peripheral Vascular 03/20/2021 [id number] / / Description:left Bard Peripheral Vascular [id number] Lifestream 10mm 58mm 135cm Balloon Expandable Low Profile Cover - [id number] Implanted:Qty: 1 on 06/11/2020 by Brooks Kaplan MD at [facility] N/A: Iliac Bard Peripheral Vascular 10/18/2022 [id number] / / Description:left Procedures Procedure Name Priority Date/Time Associated Diagnosis Comments CT LUNG CANCER SCREENING Schedule Routine, Read Routine (OP Routine) 09/10/2024 10:42 AM IT SECURITY MANAGER Personal history of nicotine dependence HEPATITIS C ANTIBODY Routine 12/27/2022 1:44 PM CDT Need for hepatitis C screening test from Last 3 Months or Most Recently Relevant to Health Maintenance Results * CT Lung Cancer Screening (09/10/2024 10:42 AM IT SECURITY MANAGER) Anatomical Region Laterality Modality Chest N/A Computed Tomogra phy 09/10/2024 1:25 PM IT SECURITY MANAGER Impressions 09/10/2024 1:25 PM IT SECURITY MANAGER 1. LungRADS Category 2 (benign). Recommend Low dose Screening CT of chest in 12 months. LungRADS Categories: 1 - Negative (no nodules, or only benign calcified or fat-containing nodules) 2 - Benign Appearance or Behavior (nodules with very low likelihood of becoming a clinically active cancer due to size or lack of growth) 3 - Probably Benign (probably benign findings-short term follow up suggested; includes nodules with a low likelihood of becoming a clinically active cancer) 4A,4B,4X - Suspicious (category 3 or 4 nodules with findings for which additional diagnostic testing and/or tissue sampling is recommended) S - Other (clinically significant or potentially clinically significant findings (non-lung cancer) C - Prior Lung Cancer (modifier for patients with a prior diagnosis of lung cancer who return to screening) Electronically signed by: Tita Suero M.D. Narrative 09/10/2024 1:25 PM IT SECURITY MANAGER EXAMINATION: Lung cancer screening CT of the Chest without intravenous contrast HISTORY: Lung Cancer Screening TECHNIQUE: Low radiation dose chest protocol. No intravenous contrast. Reconstructed slice width 1.[address] Dose Index 0.80 mGy. Dose-length product 32.9 mGy-cm. COMPARISON: 12/25/2022. FINDINGS: Lung nodules or findings of lung cancer: Stable multilocular cyst in the left lower lobe measuring approximately 2.0 cm (39.2). No new solid components. Smoking related lung disease: Mild emphysema Other findings: There is no supraclavicular, axillary, mediastinal, or hilar lymphadenopathy. Calcified mediastinal lymph nodes are consistent prior granulomatous disease. Heart is normal in size. Mild coronary artery calcification. No pericardial effusion. Limited evaluation of the upper abdomen is noncontributory. No suspicious osseous lesion. Procedure Note Tita Suero MD - 09/10/2024 EXAMINATION: Lung cancer screening CT of the Chest without intravenous contrast HISTORY: Lung Cancer Screening TECHNIQUE: Low radiation dose chest protocol. No intravenous contrast. Reconstructed slice width 1.[address] Dose Index 0.80 mGy. Dose-length product 32.9 mGy-cm. COMPARISON: 12/25/2022. FINDINGS: Lung nodules or findings of lung cancer: Stable multilocular cyst in the left lower lobe measuring approximately 2.0 cm (39.2). No new solid components. Smoking related lung disease: Mild emphysema Other findings: There is no supraclavicular, axillary, mediastinal, or hilar lymphadenopathy. Calcified mediastinal lymph nodes are consistent prior granulomatous disease. Heart is normal in size. Mild coronary artery calcification. No pericardial effusion. Limited evaluation of the upper abdomen is noncontributory. No suspicious osseous lesion. IMPRESSION: 1. LungRADS Category 2 (benign). Recommend Low dose Screening CT of chest in 12 months. LungRADS Categories: 1 - Negative (no nodules, or only benign calcified or fat-containing nodules) 2 - Benign Appearance or Behavior (nodules with very low likelihood of becoming a clinically active cancer due to size or lack of growth) 3 - Probably Benign (probably benign findings-short term follow up suggested; includes nodules with a low likelihood of becoming a clinically active cancer) 4A,4B,4X - Suspicious (category 3 or 4 nodules with findings for which additional diagnostic testing and/or tissue sampling is recommended) S - Other (clinically significant or potentially clinically significant findings (non-lung cancer) C - Prior Lung Cancer (modifier for patients with a prior diagnosis of lung cancer who return to screening) Electronically signed by: Tita Suero M.D. Tara Doan MD IMG CT PROCEDURES Final Res ult * Hepatitis C antibody (12/27/2022 1:44 PM CDT) Hep C Ab Nonreactive Nonreactive [facility] Comment:Antibodies to HCV no t detected. Does NOT exclude the possibility of recent exposure to HCV. Current interpretive data was last revised on 22 Blood 12/27/2022 1:44 PM CDT 12/27/2022 2:32 PM CDT Erick Fenton MD LAB MICROBIOLOGY - GENERAL ORDERABLES Final Result [facility] Department [place] [address] from Last 3 Months or Most Recently Relevant to Health Maintenance Insurance [facility] [employer] [facility] Advance Directives For more information, please contact: [phone] * Full Code (Latest Code Status on File) Date Activated Date Inactivated Comments 01/02/2021 7:10 PM 01/19/2021 7:38 PM * Full Code Date Activated Date Inactivated Comments 01/02/2021 7:03 PM 01/02/2021 7:10 PM * Full Code Date Activated Date Inactivated Comments 06/11/2020 5:25 PM 06/20/2020 9:43 PM Care Teams Septic Cleaner Relationship Specialty Start Date End Date Tara Doan MD [id number] [place] [address] PCP - General 01/10/24 Brooks Kaplan MD Consulting Physician Vascular Surgery 06/20/20 Saji Hale MD [address] [place] [address] Consulting Physician Plastic Surgery 06/20/20 Estrellita Han MD [address] [place] [address] Referring Physician Plastic Surgery 01/18/21
--- OUTSIDE RECORDS SUMMARY | 2025-01-17 17:23 | XMS_ITS | Clinical Summary ---
Author Organization [facility] Address [address] [place] [address] Care Team Providers Care Parimutuel Ticket Cashier Name Role Phone Brooks Kaplan MD Unavailable [phone] Saji Hale MD Unavailable [phone] Estrellita Han MD Unavailable [phone] Tara Doan MD Primary Care Provider Allergies No known active allergies Medications psyllium [...] 06/26/2023 Assessment & Plan (06/26/2023 7:30 PM TELEPHONE ADVICE NURSE): History of smoking 40 years 1 ppd. [...] appointment. Assessment & Plan (06/26/2023 7:30 PM TELEPHONE ADVICE NURSE): -CT lung 12/2022 category 2. Due 12/2023 [...] daily Assessment & Plan (06/26/2023 7:30 PM TELEPHONE ADVICE NURSE): BP 137/69 -Will continue to monitor -Continue [...] bovine pericardial patch angioplasty after endarterectomy of [place] common femoral artery and proximal SFA, stent angioplasty of infrarenal aorta w/ coverage with [place] excluder cuffs w/ extension into both limbs, [...] (01/15/2021): Added automatically from request for surgery [id number] Acute blood loss anemia 06/12/2020 Assessment & Plan (06/16/2020 7:41 AM TELEPHONE ADVICE NURSE): - Pre op Hgb 15.4, then 8.6 [...] revision (Rosaura 05/2020) - presented 01/02 with Alvarez 2x acute limb ischemia 2/2 to occlusion [...] outpatient Assessment & Plan (06/20/2020 6:50 AM TELEPHONE ADVICE NURSE): - s/p b/l redo groins, b/l iliac [...] (06/10/2020): Added automatically from request for surgery [id number] Surgical follow-up care 12/01/2015 Peripheral artery disease [...] Plan (12/27/2024 5:13 PM CDT): [facility] Orders: rivaroxaban (XARELTO) [...] obtain. Assessment & Plan (06/26/2023 7:30 PM TELEPHONE ADVICE NURSE): History of PAD s/p bilateral aortobifem 06/2015 [...] pain has since improved. - Discontinued Gabapentin. Encounters Date Type Department Care Team Description 12/27/2024 3:15 PM CDT Office Visit [facility] Medicine [facility] [address] [place] [address] Tara Doan MD Primary hyperparathyroidism (Primary Dx); Peripheral artery disease (CMS/HCC) (HCC); Primary hypertension; Colon cancer screening from Last 3 Months Immunizations Immunization Administration Dates Next Due Tdap 09/01/2013 Surgical History Surgery Date Site/Laterality Comments ANGIOPLASTY / STENTING FEMORAL REVASCULARIZATION / IN-SITU GRAFT LEG Left FASCIOTOMY 01/02/2021 Left left brachial artery cutdown with suction thrombectomy of aortofemoral bypass and fasciotomy x2 OTHER SURGICAL HISTORY 01/09/2021 fasciotomy closure AORTA - BILATERAL FEMORAL ARTERY BYPASS GRAFT 06/20/2015 - 07/20/2015 Medical History Medical History Date Comments Diverticulitis PVD (peripheral vascular disease) Hypertension DVT (deep venous thrombosis) (HCC) History of blood transfusion Family History Medical History Relation Name Comments No Known Problems Father No Known Problems Mother Anesthesia problems Neg Hx Relation Name Status Comments Father Mother Social History Tobacco Use Types Packs/Day Years [...] on file Legal Sex Male 3:45 AM TELEPHONE ADVICE NURSE Gender Identity Not on file Sexual Orientation Not on file Obstetrics History Last Filed Vital Signs Vital Sign Reading [...] 177.8 cm (5' 10) 09/10/2024 8:39 AM TELEPHONE ADVICE NURSE Body Mass Index 23.59 09/10/2024 8:39 AM TELEPHONE ADVICE NURSE Plan of Treatment Scheduled Procedures Name Priority Associated Diagnoses Date/Ti me COLONOSCOPY Screening for colon cancer Health Maintenance Due Date Last Done Comments Colon Cancer Screening-Colonoscopy 1963 Depression Screening 1963 Prostate Cancer Screening-PSA 1963 Hepatitis B Screening 1981 Regular Well Visit/Exam 18-64 1981 Pneumococcal vaccine <65 (1 of 2 - PCV) 1982 Zoster Vaccine (1 of 2) 2013 DTaP/Tdap/Td Vaccine (2 - Td or Tdap) 09/01/202306/2014 Influenza Vaccine (Season Ended) 2025 Lung Cancer Screening 09/11/2025 09/10/2024, 023 Hepatitis C Screening Completed 12/27/2022 Medical Devices Implanted Type Area Director Motion Picture Device Identifier Shelf Expiration Date Model / Serial / Lot [employer] [id number] Vascu-Guard 8x.8cm Peripheral Patch Vascular Bovine Pericardium - [id number] Implanted:Qty: 1 on 06/11/2020 by Brooks Kaplan MD at [facility] N/A: Groin [employer] 02/01/2025 [id number] / / [id number] Description:Femoral artery [employer] [id number] Vascu-Guard 8x.8cm Peripheral Patch Vascular Bovine Pericardium - [id number] Implanted:Qty: 1 on 06/11/2020 by Brooks Kaplan MD at [facility] N/A: Groin [employer] 02/01/2025 [id number] / / [id number] [employer] [id number] 23mm 19-21mm 3.3cm Aorta Graft Endovascular - [id number] - [id number] Implanted:Qty: 1 on 06/11/2020 by Brooks Kaplan MD at [facility] N/A: Aorta [employer] [id number] 12/13/2022 [id number] / [id number] / [employer] [id number] 23mm 19-21mm 3.3cm Aorta Graft Endovascular - [id number] - [id number] Implanted:Qty: 1 on 06/11/2020 by Brooks Kaplan MD at [facility] N/A: Aorta [employer] [id number] 12/13/2022 [id number] / [id number] / [employer] [id number] Lifestream 10mm 58mm 80cm Balloon Expandable Low Profile Cover - [id number] Implanted:Qty: 1 on 06/11/2020 by Brooks Kaplan MD at [facility] N/A: Iliac [employer] 05/20/2022 [id number] / / Description:Right [employer] [id number] Lifestream 10mm 58mm 80cm Balloon Expandable Low Profile Cover - [id number] Implanted:Qty: 1 on 06/11/2020 by Brooks Kaplan MD at [facility] N/A: Iliac [employer] 03/20/2021 [id number] / / Description:left [employer] [id number] Lifestream 10mm 58mm 135cm Balloon Expandable Low Profile Cover - [id number] Implanted:Qty: 1 on 06/11/2020 by Brooks Kaplan MD at [facility] N/A: Iliac [employer] 10/18/2022 [id number] / / Description:left Procedures Procedure Name Priority Date/Time Associated Diagnosis Comments CT LUNG CANCER SCREENING Schedule Routine, Read Routine (OP Routine) 09/10/2024 10:42 AM TELEPHONE ADVICE NURSE Personal history of nicotine dependence HEPATITIS C ANTIBODY Routine 12/27/2022 1:44 PM CDT Need for hepatitis C screening test from Last 3 Months or Most Recently Relevant to Health Maintenance Results * CT Lung Cancer Screening (09/10/2024 10:42 AM TELEPHONE ADVICE NURSE) Anatomical Region Laterality Modality Chest N/A Computed Tomogra phy 09/10/2024 1:25 PM TELEPHONE ADVICE NURSE Impressions 09/10/2024 1:25 PM TELEPHONE ADVICE NURSE 1. LungRADS Category 2 (benign). Recommend Low [...] Tita Suero M.D. Narrative 09/10/2024 1:25 PM TELEPHONE ADVICE NURSE EXAMINATION: Lung cancer screening CT of the [...] screening) Electronically signed by: Tita Suero M.D. us Tara Doan MD IMG CT PROCEDURES Final Res ult * Hepatitis C antibody (12/27/2022 1:44 PM CDT) Hep C Ab Nonreactive Nonreactive [facility] Comment:Antibodies to HCV no t detected. Does NOT exclude the possibility of recent exposure to HCV. Current interpretive data was last revised on 22 Blood 12/27/2022 1:44 PM CDT 12/27/2022 2:32 PM CDT us Erick Fenton MD LAB MICROBIOLOGY - GENERAL ORDERABLES Final Result [facility] Department [place] [address] from Last 3 Months or Most Recently Relevant to Health Maintenance Insurance [employer] [facility] [employer] [facility] Advance Directives For more information, please contact: [phone] * Full Code (Latest Code Status on File) Date Activated Date Inactivated Comments 01/02/2021 7:10 PM 01/19/2021 7:38 PM * Full Code Date Activated Date Inactivated Comments 01/02/2021 7:03 PM 01/02/2021 7:10 PM * Full Code Date Activated Date Inactivated Comments 06/11/2020 5:25 PM 06/20/2020 9:43 PM Care Teams Parimutuel Ticket Cashier Relationship Specialty Start Date End Date Tara Doan MD [address] [facility] [id number] [place], [place] [id number] PCP - General 01/10/24 Brooks Kaplan MD Consulting Physician Vascular Surgery 06/20/20 Saji Hale MD [address] [place], [place] [id number] Consulting Physician Plastic Surgery 06/20/20 Estrellita Han MD [address] [place], [place] [id number] Referring Physician Plastic Surgery 01/18/21
[2025-01-17 17:40] VITALS: BP 123/90; PULSE 106; RESP 18; TEMP 37; O2SAT 100
--- NOTE | 2025-01-17 18:01 | ED_ITS ---
HPI - Nausea/Vomiting/Diarrhea General Chief complaint: Nausea/Vomiting/Diarrhea <Maria Teresatod Craft, COORDINATE MEASURING EQUIPMENT OPERATOR - Last Filed: 01/17/25 18:35> Stated complaint: diarrhea x 3 days, nausea <Maria Teresa Craft COORDINATE MEASURING EQUIPMENT OPERATOR - Last Filed: 01/17/25 18:35> Time Seen by Provider: 01/17/25 17:30 <Maria Teresa Craft COORDINATE MEASURING EQUIPMENT OPERATOR - Last Filed: 01/17/25 18:35> Focused HPI: Patient is a 59-year-old male who presents to the ER with complaints generalized abdominal pain. He reports his pain started approximately 3 days ago. Patient reports he has had diarrhea for the past 3 days which has turned ?white and foamy. He reports his stools have also been dark and liquid. Patient denies any recent fevers, shortness of breath, chest pain, urinary symptoms. He endorses a history of diverticulitis, open-heart surgery, and 11 surgeries. GENERAL: Ill-appearing, well-nourished, and in mild distress. HEAD: Normocephalic, atraumatic. CHEST: Clear to auscultation. ?No respiratory distress. HEART: Regular rate and rhythm.? NEURO: ?Alert and oriented x3. Patient screened in triage and initial orders placed.? ?Additional care and disposition to be based upon?diagnostic testing and treatment. <Maria Teresa JavierCorinne Craft, COORDINATE MEASURING EQUIPMENT OPERATOR - Last Filed: 01/17/25 18:35> Focused HPI: Patient is a 59-year-old male who presents to the ER with complaints generalized abdominal pain. He reports his pain started approximately 3 days ago. Patient reports he has had diarrhea for the past 3 days which has turned ?light brown and watery. Patient denies any recent fevers, shortness of breath, chest pain, urinary symptoms. He endorses a history of diverticulitis, open-heart surgery GENERAL: Ill-appearing, well-nourished, and in mild distress. HEAD: Normocephalic, atraumatic. CHEST: Clear to auscultation. ?No respiratory distress. HEART: Regular rate and rhythm.? NEURO: ?Alert and oriented x3. Patient screened in triage and initial orders placed.? ?Additional care and disposition to be based upon?diagnostic testing and treatment. <Maddie Silvestre PA-C - Last Filed: 01/18/25 00:54> Related Data Home medications: Home Medications ?Medication ?Instructions ?Recorded ?Confirmed ?Last Taken ?Type amlodipine 10 mg tablet 10 mg PO DAILY 06/21/24 01/18/25 01/18/25 History aspirin 81 mg chewable tablet 81 mg PO DAILY 06/21/24 01/18/25 01/18/25 History atorvastatin 40 mg tablet 40 mg PO HS 06/21/24 01/18/25 01/18/25 History losartan 25 mg tablet 25 mg PO DAILY 06/21/24 01/18/25 01/18/25 History rivaroxaban 20 mg tablet (Xarelto) 20 mg PO DAILY 06/21/24 01/18/25 01/17/25 History <Maria Teresa Craft APRN - Last Filed: 01/17/25 18:35> Allergies/Adverse reactions: Allergies Allergy/AdvReac Type Severity Reaction Status Date / Time No Known Allergies Allergy Verified 07/07/24 09:36 <Maria Teresa Craft APRN - Last Filed: 01/17/25 18:35> Review of Systems 2 Review of Systems: All systems reviewed & are unremarkable except as noted in HPI and below <Maddie Silvestre PA-C - Last Filed: 01/18/25 00:54> [facility] Past Medical History Medical History: Medical History (Updated 01/18/25 @ 15:46 by Serafin Gutierrez MD) Hyperlipidemia Hypertension Peripheral vascular disease Coronary artery disease History of aortic aneurysm Diverticulitis <Maria Teresa Craft APRN - Last Filed: 01/17/25 18:35> Surgical History Surgical History: Surgical History History of aortic aneurysm repair History of vascular surgery Graft, bilateral lower extremities History of heart artery stent History of coronary artery bypass graft <Maria Teresa Craft APRN - Last Filed: 01/17/25 18:35> Social History Social History: Social History (Updated 01/18/25 @ 06:05 by Casandra Mariscal PA-C) Social History: Surrogate medical decision maker: Heike Caldwell, mother. Code status: Full code. Smoking packs per day: 2 Smoking cigarettes per day: 40.0 Years smoked: 25 Smoking pack-years: 50.00 Smoking status: Former smoker Tobacco type: cigarettes Alcohol intake: former Substance use: former Substance use type: marijuana Other substance usage details: marijuana use occasionally Do You Feel Safe in your Home?: Yes Lack of Transportation: No Lack of Food: Never True Current Housing: I Have Housing Concerned About Future Housing: No Difficulty Paying Gas/Electric Bills: Decline to Answer Difficulty Paying for Meds: No Currently Unemployed: No Education: High School Diploma/GED Difficulty w/ Childcare or Family Care: No Spiritual care concerns: No <Maria Teresa Craft APRN - Last Filed: 01/17/25 18:35> Exam 2 Narrative: GENERAL: Uncomfortable, well-nourished, and in no acute distress. HEAD: Normocephalic, atraumatic. EYES: EOMI. CHEST: Clear to auscultation. No respiratory distress. No wheezes rales or rhonchi HEART: Regular rate and rhythm. No murmur heard. Normal peripheral pulses. ABDOMEN: Soft, nondistended, normal active bowel sounds. Mild tenderness to palpation throughout the abdomen, without guarding EXTREMITIES: Normal range of motion. No edema. SKIN: Warm, dry, no rash. NEURO: No focal deficits. Alert and oriented x3. PSYCH: Normal mood and affect <Maddie Silvestre PA-C - Last Filed: 01/18/25 00:54> Course Course Emergency Course: Patient updated on his workup and need for admission <WINSTON Burch - Last Filed: 01/18/25 00:54> RESOLUTION EXPERT/PA Physician Supervision Patient being admitted. I was available for consultation while patient was in the emergency department but did not physically examine them and was not directly involved in their care. <Martha Becerra MD - Last Filed: 01/18/25 17:53> Consultations Consultation #1: Spoke with hospitalist about patient and workup who accepts admission < Maddie Silvestre PA-C - Last Filed: 01/18/25 00:54> Date: 01/17/25 <Maddie Silvestre PA-C - Last Filed: 01/18/25 00:54> Vital Signs Vital signs: Vital Signs Temperature 98.6 F 01/17/25 17:40 Pulse Rate 106 H 01/17/25 17:40 Respiratory Rate 18 01/17/25 17:40 Blood Pressure 123/90 01/17/25 17:40 Pulse Oximetry 100 01/17/25 17:40 Oxygen Delivery Room Air 01/17/25 17:40 Temperature 96.4 F L 01/18/25 13:37 Pulse Rate 62 01/18/25 13:37 Respiratory Rate 16 01/18/25 13:37 Blood Pressure 98/65 L 01/18/25 13:37 Pulse Oximetry 98 01/18/25 13:37 Oxygen Delivery Room Air 01/18/25 08:00 <Maria Teresa Craft, COORDINATE MEASURING EQUIPMENT OPERATOR - Last Filed: 01/17/25 18:35> Vital Signs Temperature 98.6 F 01/17/25 17:40 Pulse Rate 106 H 01/17/25 17:40 Respiratory Rate 18 01/17/25 17:40 Blood Pressure 123/90 01/17/25 17:40 Pulse Oximetry 100 01/17/25 17:40 Oxygen Delivery Room Air 01/17/25 17:40 Temperature 96.4 F L 01/18/25 13:37 Pulse Rate 62 01/18/25 13:37 Respiratory Rate 16 01/18/25 13:37 Blood Pressure 98/65 L 01/18/25 13:37 Pulse Oximetry 98 01/18/25 13:37 Oxygen Delivery Room Air 01/18/25 08:00 <Maddie Silvestre, HENRY - Last Filed: 01/18/25 00:54> Vital Signs Temperature 98.6 F 01/17/25 17:40 Pulse Rate 106 H 01/17/25 17:40 Respiratory Rate 18 01/17/25 17:40 Blood Pressure 123/90 01/17/25 17:40 Pulse Oximetry 100 01/17/25 17:40 Oxygen Delivery Room Air 01/17/25 17:40 Temperature 96.4 F L 01/18/25 13:37 Pulse Rate 62 01/18/25 13:37 Respiratory Rate 16 01/18/25 13:37 Blood Pressure 98/65 L 01/18/25 13:37 Pulse Oximetry 98 01/18/25 13:37 Oxygen Delivery Room Air 01/18/25 08:00 <Martha Becerra MD - Last Filed: 01/18/25 17:53> MDM - Nausea/Vomiting/Diarrhea MDM Narrative Medical decision making narrative: Patient presents the emergency department for abdominal pain, diarrhea. He is afebrile and nontoxic appearing. Tachycardic upon arrival, this normalized with IV fluids. CBC with leukocytosis to 11.6. Metabolic panel with some evidence of dehydration. Urine also with evidence of dehydration. CT abdomen pelvis showing diffuse colitis. Stool cultures obtained, C diff negative. Blood cultures obtained, patient started on IV antibiotics. Patient updated on his workup and need for admission. Spoke with hospitalist about patient and workup who accepts admission. Will place consult for GI <Maddie Silvestre PA-C - Last Filed: 01/18/25 00:54> Differential Diagnosis Differential diagnosis: Likely traveler's diarrhea, food poisoning, gastroenteritis, clostridium difficile infection, dehydration and other (colitis, diverticulitis) <Maddie Silvestre PA-C - Last Filed: 01/18/25 00:54> Lab Data Attestation: I reviewed the patient's lab results. <Maddie Silvestre PA-C - Last Filed: 01/18/25 00:54> Result diagrams: 01/18/25 06:26 01/18/25 06:26 <Maria Teresa Craft APRN - Last Filed: 01/17/25 18:35> Labs: Lab Results 01/17/25 01/17/25 01/17/25 Range/Units 18:20 20:38 22:08 WBC 11.6 H (4.5-10.0) K/mm3 RBC 5.25 (4.6-6.20) M/mm3 Hgb 15.3 (14.0-18.0) g/dL Hct 45.8 (42.0-52.0) % MCV 87.2 (80-100) fl MCH 29.1 (26-34) pg MCHC 33.4 (32-36) g/dl RDW 13.0 (11.5-14.5) % Plt Count 179 (150-375) k/mm3 MPV 11.9 H (7.4-10.4) fl Immature Gran % (Auto) 0.3 (0-0.5) % Neut % (Auto) 74.5 H (45.5-73.1) % Lymph % (Auto) 9.8 L (18.3-44.2) % [place] % (Auto) 14.7 H (2.6-8.5) % Eos % (Auto) 0.3 (0-4.4) % Baso % (Auto) 0.4 (0.2-1.2) % Lymph # (Auto) 1.14 (0.9-3.2) K/mm3 [place] # (Auto) 1.7 H (0.1-0.6) K/mm3 Eos # (Auto) 0.0 (0-0.3) K/mm3 Baso # (Auto) 0.1 (0.0-0.1) K/mm3 Abs Immat Gran (auto) 0.03 (0.00-0.031) K/mm3 Absolute Neuts (auto) 8.6 H (1.3-6.7) K/mm3 Absolute Nucleated RBC 0.000 (0.0-0.012) K/mm3 Nucleated RBC % 0.0 (0.0-0.2) % Sodium 137 (137-145) mmol/L Potassium 3.9 (3.4-5.0) mmol/L Chloride 104 (98-107) mmol/L Carbon Dioxide 21 L (22-30) mmol/L Anion Gap 12 (4-12) mmol/L BUN 22 H (9-20) mg/dL Creatinine 1.05 (0.7-1.3) mg/dL Estim Creat Clear Calc 67 ml/min Estimated GFR > 60 (59 - ) Glucose 144 H (65-110) mg/dL Lactic Acid 1.3 (0.7-2.0) mmol/L Calcium 10.5 H (8.4-10.2) mg/dL Total Bilirubin 0.6 (0.2-1.3) mg/dL AST 34 (17-59) U/L ALT 24 (6-50) U/L Alkaline Phosphatase 57 (38-126) U/L Total Protein 7.5 (6.3-8.2) g/dL Albumin 4.2 (3.5-5.1) g/dL Lipase 213 (23-300) U/L Urine Color Yellow (Yellow) Urine Appearance Clear (Clear) Urine pH 6.5 (5.0-9.0) Ur Specific [place] > 1.045 H (1.001-1.035) Urine Protein 1+ H (Negative) mg/dL Urine Glucose (UA) Negative (Negative) mg/dL Urine Ketones Negative (Negative) mg/dL Ur Blood (Man) Trace (Negative) Urine Nitrate Negative (Negative) Urine Bilirubin Negative (Negative) Urine Urobilinogen 0.2 (<2.0) mg/dL Add Ur Microanalysis Reviewed Leukocyte Esterase Rfl Negative (Negative) VERONICA/UL Urine RBC 6-10 H (0-2) /hpf Urine WBC 0-5 (0-3) /hpf Ur Squamous Epith Cells None seen (Few) /hpf Urine Bacteria None seen /hpf Urine Casts 0-2 Urine Opiates Screen Negative (Negative) Urine Methadone Screen Negative (Negative) Ur Barbiturates Screen Negative (Negative) Ur Phencyclidine Scrn Negative (Negative) Ur Amphetamine Screen Negative (Negative) U Benzodiazepines Scrn Negative (Negative) Urine Cocaine Screen Negative (Negative) U Cannabinoids Screen Positive A (Negative) C. difficile (PCR) (NEGATIVE) 01/17/25 Range/Units 22:24 WBC (4.5-10.0) K/mm3 RBC (4.6-6.20) M/mm3 Hgb (14.0-18.0) g/dL Hct (42.0-52.0) % MCV (80-100) fl MCH (26-34) pg MCHC (32-36) g/dl RDW (11.5-14.5) % Plt Count (150-375) k/mm3 MPV (7.4-10.4) fl Immature Gran % (Auto) (0-0.5) % Neut % (Auto) (45.5-73.1) % Lymph % (Auto) (18.3-44.2) % [place] % (Auto) (2.6-8.5) % Eos % (Auto) (0-4.4) % Baso % (Auto) (0.2-1.2) % Lymph # (Auto) (0.9-3.2) K/mm3 [place] # (Auto) (0.1-0.6) K/mm3 Eos # (Auto) (0-0.3) K/mm3 Baso # (Auto) (0.0-0.1) K/mm3 Abs Immat Gran (auto) (0.00-0.031) K/mm3 Absolute Neuts (auto) (1.3-6.7) K/mm3 Absolute Nucleated RBC (0.0-0.012) K/mm3 Nucleated RBC % (0.0-0.2) % Sodium (137-145) mmol/L Potassium (3.4-5.0) mmol/L Chloride (98-107) mmol/L Carbon Dioxide (22-30) mmol/L Anion Gap (4-12) mmol/L BUN (9-20) mg/dL Creatinine (0.7-1.3) mg/dL Estim Creat Clear Calc ml/min Estimated GFR (59 - ) Glucose (65-110) mg/dL Lactic Acid (0.7-2.0) mmol/L Calcium (8.4-10.2) mg/dL Total Bilirubin (0.2-1.3) mg/dL AST (17-59) U/L ALT (6-50) U/L Alkaline Phosphatase (38-126) U/L Total Protein (6.3-8.2) g/dL Albumin (3.5-5.1) g/dL Lipase (23-300) U/L Urine Color (Yellow) Urine Appearance (Clear) Urine pH (5.0-9.0) Ur Specific [place] (1.001-1.035) Urine Protein (Negative) mg/dL Urine Glucose (UA) (Negative) mg/dL Urine Ketones (Negative) mg/dL Ur Blood (Man) (Negative) Urine Nitrate (Negative) Urine Bilirubin (Negative) Urine Urobilinogen (<2.0) mg/dL Add Ur Microanalysis Leukocyte Esterase Rfl (Negative) VERONICA/UL Urine RBC (0-2) /hpf Urine WBC (0-3) /hpf Ur Squamous Epith Cells (Few) /hpf Urine Bacteria /hpf Urine Casts Urine Opiates Screen (Negative) Urine Methadone Screen (Negative) Ur Barbiturates Screen (Negative) Ur Phencyclidine Scrn (Negative) Ur Amphetamine Screen (Negative) U Benzodiazepines Scrn (Negative) Urine Cocaine Screen (Negative) U Cannabinoids Screen (Negative) C. difficile (PCR) Negative (NEGATIVE) <Maria Teresa Craft, COORDINATE MEASURING EQUIPMENT OPERATOR - Last Filed: 01/17/25 18:35> Lab Results 01/17/25 01/17/25 01/17/25 Range/Units 18:20 20:38 22:08 WBC 11.6 H (4.5-10.0) K/mm3 RBC 5.25 (4.6-6.20) M/mm3 Hgb 15.3 (14.0-18.0) g/dL Hct 45.8 (42.0-52.0) % MCV 87.2 (80-100) fl MCH 29.1 (26-34) pg MCHC 33.4 (32-36) g/dl RDW 13.0 (11.5-14.5) % Plt Count 179 (150-375) k/mm3 MPV 11.9 H (7.4-10.4) fl Immature Gran % (Auto) 0.3 (0-0.5) % Neut % (Auto) 74.5 H (45.5-73.1) % Lymph % (Auto) 9.8 L (18.3-44.2) % [place] % (Auto) 14.7 H (2.6-8.5) % Eos % (Auto) 0.3 (0-4.4) % Baso % (Auto) 0.4 (0.2-1.2) % Lymph # (Auto) 1.14 (0.9-3.2) K/mm3 [place] # (Auto) 1.7 H (0.1-0.6) K/mm3 Eos # (Auto) 0.0 (0-0.3) K/mm3 Baso # (Auto) 0.1 (0.0-0.1) K/mm3 Abs Immat Gran (auto) 0.03 (0.00-0.031) K/mm3 Absolute Neuts (auto) 8.6 H (1.3-6.7) K/mm3 Absolute Nucleated RBC 0.000 (0.0-0.012) K/mm3 Nucleated RBC % 0.0 (0.0-0.2) % Sodium 137 (137-145) mmol/L Potassium 3.9 (3.4-5.0) mmol/L Chloride 104 (98-107) mmol/L Carbon Dioxide 21 L (22-30) mmol/L Anion Gap 12 (4-12) mmol/L BUN 22 H (9-20) mg/dL Creatinine 1.05 (0.7-1.3) mg/dL Estim Creat Clear Calc 67 ml/min Estimated GFR > 60 (59 - ) Glucose 144 H (65-110) mg/dL Lactic Acid 1.3 (0.7-2.0) mmol/L Calcium 10.5 H (8.4-10.2) mg/dL Total Bilirubin 0.6 (0.2-1.3) mg/dL AST 34 (17-59) U/L ALT 24 (6-50) U/L Alkaline Phosphatase 57 (38-126) U/L Total Protein 7.5 (6.3-8.2) g/dL Albumin 4.2 (3.5-5.1) g/dL Lipase 213 (23-300) U/L Urine Color Yellow (Yellow) Urine Appearance Clear (Clear) Urine pH 6.5 (5.0-9.0) Ur Specific [place] > 1.045 H (1.001-1.035) Urine Protein 1+ H (Negative) mg/dL Urine Glucose (UA) Negative (Negative) mg/dL Urine Ketones Negative (Negative) mg/dL Ur Blood (Man) Trace (Negative) Urine Nitrate Negative (Negative) Urine Bilirubin Negative (Negative) Urine Urobilinogen 0.2 (<2.0) mg/dL Add Ur Microanalysis Reviewed Leukocyte Esterase Rfl Negative (Negative) VERONICA/UL Urine RBC 6-10 H (0-2) /hpf Urine WBC 0-5 (0-3) /hpf Ur Squamous Epith Cells None seen (Few) /hpf Urine Bacteria None seen /hpf Urine Casts 0-2 Urine Opiates Screen Negative (Negative) Urine Methadone Screen Negative (Negative) Ur Barbiturates Screen Negative (Negative) Ur Phencyclidine Scrn Negative (Negative) Ur Amphetamine Screen Negative (Negative) U Benzodiazepines Scrn Negative (Negative) Urine Cocaine Screen Negative (Negative) U Cannabinoids Screen Positive A (Negative) C. difficile (PCR) (NEGATIVE) 01/17/25 Range/Units 22:24 WBC (4.5-10.0) K/mm3 RBC (4.6-6.20) M/mm3 Hgb (14.0-18.0) g/dL Hct (42.0-52.0) % MCV (80-100) fl MCH (26-34) pg MCHC (32-36) g/dl RDW (11.5-14.5) % Plt Count (150-375) k/mm3 MPV (7.4-10.4) fl Immature Gran % (Auto) (0-0.5) % Neut % (Auto) (45.5-73.1) % Lymph % (Auto) (18.3-44.2) % [place] % (Auto) (2.6-8.5) % Eos % (Auto) (0-4.4) % Baso % (Auto) (0.2-1.2) % Lymph # (Auto) (0.9-3.2) K/mm3 [place] # (Auto) (0.1-0.6) K/mm3 Eos # (Auto) (0-0.3) K/mm3 Baso # (Auto) (0.0-0.1) K/mm3 Abs Immat Gran (auto) (0.00-0.031) K/mm3 Absolute Neuts (auto) (1.3-6.7) K/mm3 Absolute Nucleated RBC (0.0-0.012) K/mm3 Nucleated RBC % (0.0-0.2) % Sodium (137-145) mmol/L Potassium (3.4-5.0) mmol/L Chloride (98-107) mmol/L Carbon Dioxide (22-30) mmol/L Anion Gap (4-12) mmol/L BUN (9-20) mg/dL Creatinine (0.7-1.3) mg/dL Estim Creat Clear Calc ml/min Estimated GFR (59 - ) Glucose (65-110) mg/dL Lactic Acid (0.7-2.0) mmol/L Calcium (8.4-10.2) mg/dL Total Bilirubin (0.2-1.3) mg/dL AST (17-59) U/L ALT (6-50) U/L Alkaline Phosphatase (38-126) U/L Total Protein (6.3-8.2) g/dL Albumin (3.5-5.1) g/dL Lipase (23-300) U/L Urine Color (Yellow) Urine Appearance (Clear) Urine pH (5.0-9.0) Ur Specific [place] (1.001-1.035) Urine Protein (Negative) mg/dL Urine Glucose (UA) (Negative) mg/dL Urine Ketones (Negative) mg/dL Ur Blood (Man) (Negative) Urine Nitrate (Negative) Urine Bilirubin (Negative) Urine Urobilinogen (<2.0) mg/dL Add Ur Microanalysis Leukocyte Esterase Rfl (Negative) VERONICA/UL Urine RBC (0-2) /hpf Urine WBC (0-3) /hpf Ur Squamous Epith Cells (Few) /hpf Urine Bacteria /hpf Urine Casts Urine Opiates Screen (Negative) Urine Methadone Screen (Negative) Ur Barbiturates Screen (Negative) Ur Phencyclidine Scrn (Negative) Ur Amphetamine Screen (Negative) U Benzodiazepines Scrn (Negative) Urine Cocaine Screen (Negative) U Cannabinoids Screen (Negative) C. difficile (PCR) Negative (NEGATIVE) <Maddie Silvestre PA-C - Last Filed: 01/18/25 00:54> Lab Results 01/17/25 01/17/25 01/17/25 Range/Units 18:20 20:38 22:08 WBC 11.6 H (4.5-10.0) K/mm3 RBC 5.25 (4.6-6.20) M/mm3 Hgb 15.3 (14.0-18.0) g/dL Hct 45.8 (42.0-52.0) % MCV 87.2 (80-100) fl MCH 29.1 (26-34) pg MCHC 33.4 (32-36) g/dl RDW 13.0 (11.5-14.5) % Plt Count 179 (150-375) k/mm3 MPV 11.9 H (7.4-10.4) fl Immature Gran % (Auto) 0.3 (0-0.5) % Neut % (Auto) 74.5 H (45.5-73.1) % Lymph % (Auto) 9.8 L (18.3-44.2) % [place] % (Auto) 14.7 H (2.6-8.5) % Eos % (Auto) 0.3 (0-4.4) % Baso % (Auto) 0.4 (0.2-1.2) % Lymph # (Auto) 1.14 (0.9-3.2) K/mm3 [place] # (Auto) 1.7 H (0.1-0.6) K/mm3 Eos # (Auto) 0.0 (0-0.3) K/mm3 Baso # (Auto) 0.1 (0.0-0.1) K/mm3 Abs Immat Gran (auto) 0.03 (0.00-0.031) K/mm3 Absolute Neuts (auto) 8.6 H (1.3-6.7) K/mm3 Absolute Nucleated RBC 0.000 (0.0-0.012) K/mm3 Nucleated RBC % 0.0 (0.0-0.2) % Sodium 137 (137-145) mmol/L Potassium 3.9 (3.4-5.0) mmol/L Chloride 104 (98-107) mmol/L Carbon Dioxide 21 L (22-30) mmol/L Anion Gap 12 (4-12) mmol/L BUN 22 H (9-20) mg/dL Creatinine 1.05 (0.7-1.3) mg/dL Estim Creat Clear Calc 67 ml/min Estimated GFR > 60 (59 - ) Glucose 144 H (65-110) mg/dL Lactic Acid 1.3 (0.7-2.0) mmol/L Calcium 10.5 H (8.4-10.2) mg/dL Total Bilirubin 0.6 (0.2-1.3) mg/dL AST 34 (17-59) U/L ALT 24 (6-50) U/L Alkaline Phosphatase 57 (38-126) U/L Total Protein 7.5 (6.3-8.2) g/dL Albumin 4.2 (3.5-5.1) g/dL Lipase 213 (23-300) U/L Urine Color Yellow (Yellow) Urine Appearance Clear (Clear) Urine pH 6.5 (5.0-9.0) Ur Specific [place] > 1.045 H (1.001-1.035) Urine Protein 1+ H (Negative) mg/dL Urine Glucose (UA) Negative (Negative) mg/dL Urine Ketones Negative (Negative) mg/dL Ur Blood (Man) Trace (Negative) Urine Nitrate Negative (Negative) Urine Bilirubin Negative (Negative) Urine Urobilinogen 0.2 (<2.0) mg/dL Add Ur Microanalysis Reviewed Leukocyte Esterase Rfl Negative (Negative) VERONICA/UL Urine RBC 6-10 H (0-2) /hpf Urine WBC 0-5 (0-3) /hpf Ur Squamous Epith Cells None seen (Few) /hpf Urine Bacteria None seen /hpf Urine Casts 0-2 Urine Opiates Screen Negative (Negative) Urine Methadone Screen Negative (Negative) Ur Barbiturates Screen Negative (Negative) Ur Phencyclidine Scrn Negative (Negative) Ur Amphetamine Screen Negative (Negative) U Benzodiazepines Scrn Negative (Negative) Urine Cocaine Screen Negative (Negative) U Cannabinoids Screen Positive A (Negative) C. difficile (PCR) (NEGATIVE) 01/17/25 Range/Units 22:24 WBC (4.5-10.0) K/mm3 RBC (4.6-6.20) M/mm3 Hgb (14.0-18.0) g/dL Hct (42.0-52.0) % MCV (80-100) fl MCH (26-34) pg MCHC (32-36) g/dl RDW (11.5-14.5) % Plt Count (150-375) k/mm3 MPV (7.4-10.4) fl Immature Gran % (Auto) (0-0.5) % Neut % (Auto) (45.5-73.1) % Lymph % (Auto) (18.3-44.2) % [place] % (Auto) (2.6-8.5) % Eos % (Auto) (0-4.4) % Baso % (Auto) (0.2-1.2) % Lymph # (Auto) (0.9-3.2) K/mm3 [place] # (Auto) (0.1-0.6) K/mm3 Eos # (Auto) (0-0.3) K/mm3 Baso # (Auto) (0.0-0.1) K/mm3 Abs Immat Gran (auto) (0.00-0.031) K/mm3 Absolute Neuts (auto) (1.3-6.7) K/mm3 Absolute Nucleated RBC (0.0-0.012) K/mm3 Nucleated RBC % (0.0-0.2) % Sodium (137-145) mmol/L Potassium (3.4-5.0) mmol/L Chloride (98-107) mmol/L Carbon Dioxide (22-30) mmol/L Anion Gap (4-12) mmol/L BUN (9-20) mg/dL Creatinine (0.7-1.3) mg/dL Estim Creat Clear Calc ml/min Estimated GFR (59 - ) Glucose (65-110) mg/dL Lactic Acid (0.7-2.0) mmol/L Calcium (8.4-10.2) mg/dL Total Bilirubin (0.2-1.3) mg/dL AST (17-59) U/L ALT (6-50) U/L Alkaline Phosphatase (38-126) U/L Total Protein (6.3-8.2) g/dL Albumin (3.5-5.1) g/dL Lipase (23-300) U/L Urine Color (Yellow) Urine Appearance (Clear) Urine pH (5.0-9.0) Ur Specific [place] (1.001-1.035) Urine Protein (Negative) mg/dL Urine Glucose (UA) (Negative) mg/dL Urine Ketones (Negative) mg/dL Ur Blood (Man) (Negative) Urine Nitrate (Negative) Urine Bilirubin (Negative) Urine Urobilinogen (<2.0) mg/dL Add Ur Microanalysis Leukocyte Esterase Rfl (Negative) VERONICA/UL Urine RBC (0-2) /hpf Urine WBC (0-3) /hpf Ur Squamous Epith Cells (Few) /hpf Urine Bacteria /hpf Urine Casts Urine Opiates Screen (Negative) Urine Methadone Screen (Negative) Ur Barbiturates Screen (Negative) Ur Phencyclidine Scrn (Negative) Ur Amphetamine Screen (Negative) U Benzodiazepines Scrn (Negative) Urine Cocaine Screen (Negative) U Cannabinoids Screen (Negative) C. difficile (PCR) Negative (NEGATIVE) <Martha Becerra MD - Last Filed: 01/18/25 17:53> Imaging Data Radiologist's impression: ITS Impressions Abdomen/Pelvis CT 01/17/25 19:55 IMPRESSION: CT findings of ileitis and diffuse colitis. <Maddie Silvestre PA-C - Last Filed: 01/18/25 00:54> Critical Care Time Critical Care Time Critical Care Time: No <Maddie Silvestre PA-C - Last Filed: 01/18/25 00:54> Discharge Plan Discharge Clinical Impression: Colitis <Maria Teresa Craft APRN - Last Filed: 01/17/25 18:35> Patient Disposition: Still a Patient <Maria Teresa Craft APRN - Last Filed: 01/17/25 18:35> Condition: Stable <Maria Teresa Craft APRN - Last Filed: 01/17/25 18:35>
[2025-01-17 18:28] LABS: Hematocrit 45.8 % (42.0-52.0); Hemoglobin 15.3 g/dL (14.0-18.0); Immature Granulocyte Percent A 0.3 % (0-0.5); Lymphocytes Absolute Auto 1.14 K/mm3 (0.9-3.2); Mean Corpuscular HGB Conc 33.4 g/dl (32-36); Mean Corpuscular Hemoglobin 29.1 pg (26-34); Mean Corpuscular Volume 87.2 fl (80-100); Nucleated Red Blood Cells Absolute Auto 0.000 K/mm3 (0.0-0.012); Nucleated Red Blood Cells Perc 0.0 % (0.0-0.2); Platelet Count Result 179 k/mm3 (150-375); Red Blood Count 5.25 M/mm3 (4.6-6.20); White Blood Count 11.6 K/mm3 (4.5-10.0)
[2025-01-17 18:41] LABS: Alanine Aminotransferase 24 U/L (6-50); Albumin Level 4.2 g/dL (3.5-5.1); Alkaline Phosphatase 57 U/L (38-126); Anion Gap 12 mmol/L (4-12); Aspartate Amino Transferase 34 U/L (17-59); Bilirubin,Total 0.6 mg/dL (0.2-1.3); Blood Urea Nitrogen 22 mg/dL (9-20); Calcium 10.5 mg/dL (8.4-10.2); Carbon Dioxide 21 mmol/L (22-30); Chloride 104 mmol/L (98-107); Estimated CRCL calculation 67 ml/min; Estimated Glomerular Filt Rate > 60; Glucose 144 mg/dL (65-110); Lipase 213 U/L (23-300); Potassium 3.9 mmol/L (3.4-5.0); Sodium 137 mmol/L (137-145); Total Protein 7.5 g/dL (6.3-8.2)
[2025-01-17 21:01] LABS: Add Urine Microscopic? YES; Appearance Urine Clear (Clear); Glucose Urine UA Negative (Negative); Leukocyte Esterase Ur Negative LEU/UL (Negative); Need Manual Microscopic Reviewed; Nitrate Urine Negative (Negative); Non Pathogenic Casts 0-2; Specific Grav Ur > 1.045 (1.001-1.035)
[2025-01-17 21:19] LABS: Cannabinoid Screen Urine Positive (Negative)
[2025-01-17] MEDS: SODIUM CHLORIDE 0.9% IV 1,000 ML 999 ML IV CONT (22:08)
--- OUTSIDE RECORDS SUMMARY | 2025-01-17 22:10 | XMS_ITS | Clinical Summary ---
Author Organization [facility] Address [address] [place] [address] Care Team Providers Care Environmental Technology Professor Name Role Phone Brooks Kaplan MD Unavailable [phone] Saji Hale MD Unavailable [phone] Estrellita Han MD Unavailable Tara Doan MD Primary Care Provider Allergies [...] 06/26/2023 Assessment & Plan (06/26/2023 7:30 PM DRIER OPERATOR): History of smoking 40 years 1 ppd. [...] appointment. Assessment & Plan (06/26/2023 7:30 PM DRIER OPERATOR): -CT lung 12/2022 category 2. Due 12/2023 [...] daily Assessment & Plan (06/26/2023 7:30 PM DRIER OPERATOR): BP 137/69 -Will continue to monitor -Continue [...] bovine pericardial patch angioplasty after endarterectomy of [place] common femoral artery and proximal SFA, stent angioplasty of infrarenal aorta w/ coverage with [place] excluder cuffs w/ extension into both limbs, [...] (01/15/2021): Added automatically from request for surgery [id number] Acute blood loss anemia 06/12/2020 Assessment & Plan (06/16/2020 7:41 AM DRIER OPERATOR): - Pre op Hgb 15.4, then 8.6 [...] outpatient Assessment & Plan (06/20/2020 6:50 AM DRIER OPERATOR): - s/p b/l redo groins, b/l iliac [...] (06/10/2020): Added automatically from request for surgery [id number] Surgical follow-up care 12/01/2015 Peripheral artery disease [...] Plan (12/27/2024 5:13 PM CDT): [facility] Orders: rivaroxaban (XARELTO) 2.5 [...] obtain. Assessment & Plan (06/26/2023 7:30 PM DRIER OPERATOR): History of PAD s/p bilateral aortobifem 06/2015 [...] Description 12/27/2024 3:15 PM CDT Office Visit [facility] Primary Care Medicine Clinic [facility] [address] [place] [address] Tara Doan MD Primary hyperparathyroidism (Primary Dx); [...] on file Legal Sex Male 3:45 AM DRIER OPERATOR Gender Identity Not on file Sexual Orientation [...] 177.8 cm (5' 10) 09/10/2024 8:39 AM DRIER OPERATOR Body Mass Index 23.59 09/10/2024 8:39 AM DRIER OPERATOR Plan of Treatment Scheduled Procedures Name Priority [...] Completed 12/27/2022 Medical Devices Implanted Type Area Textile Machine Maintenance Mechanic Device Identifier Shelf Expiration Date Model / Serial / Lot [employer] Vg-[id number] Vascu-Guard 8x.8cm Peripheral Patch Vascular Bovine Pericardium - [id number] Implanted:Qty: 1 on 06/11/2020 by Brooks Kaplan MD at [facility] N/A: Groin [employer] 02/01/2025 VG-[id number] / / [id number] Description:Femoral artery [employer] Vg-[id number] Vascu-Guard 8x.8cm Peripheral Patch Vascular Bovine Pericardium - [id number] Implanted:Qty: 1 on 06/11/2020 by Brooks Kaplan MD at [facility] N/A: Groin [employer] 02/01/2025 [id number]-[id number] / / [id number] Wl [employer] [id number] 23mm 19-21mm 3.3cm Aorta Graft Endovascular - [id number] - [id number] Implanted:Qty: 1 on 06/11/2020 by Brooks Kaplan MD at [facility] N/A: Aorta Wl [employer] [id number] 12/13/2022 [id number] / [id number] / Wl [employer] [id number] 23mm 19-21mm 3.3cm Aorta Graft Endovascular - [id number] - [id number] Implanted:Qty: 1 on 06/11/2020 by Brooks Kaplan MD at [facility] N/A: Aorta Wl [employer] [id number] 12/13/2022 [id number] / [id number] / Bard Peripheral Vascular [id number] Lifestream 10mm 58mm 80cm Balloon Expandable Low Profile Cover - [id number] Implanted:Qty: 1 on 06/11/2020 by Brooks Kaplan MD at [facility] N/A: Iliac Bard Peripheral Vascular 05/20/2022 [id number] / / Description:Right Bard Peripheral Vascular [id number] Lifestream 10mm 58mm 80cm Balloon Expandable Low Profile Cover - [id number] Implanted:Qty: 1 on 06/11/2020 by Brooks Kaplan MD at [facility] N/A: Iliac Bard Peripheral Vascular 03/20/2021 [id number] / / Description:left Bard Peripheral Vascular [id number] Lifestream 10mm 58mm 135cm Balloon Expandable Low Profile Cover - [id number] Implanted:Qty: 1 on 06/11/2020 by Brooks Kaplan MD at [facility] N/A: Iliac Bard Peripheral Vascular 10/18/2022 [id number] / / Description:left Procedures Procedure Name Priority Date/Time Associated Diagnosis Comments CT LUNG CANCER SCREENING Schedule Routine, Read Routine (OP Routine) 09/10/2024 10:42 AM DRIER OPERATOR Personal history of nicotine dependence HEPATITIS C ANTIBODY Routine 12/27/2022 1:44 PM CDT Need for hepatitis C screening test from Last 3 Months or Most Recently Relevant to Health Maintenance Results * CT Lung Cancer Screening (09/10/2024 10:42 AM DRIER OPERATOR) Anatomical Region Laterality Modality Chest N/A Computed Tomogra phy 09/10/2024 1:25 PM DRIER OPERATOR Impressions 09/10/2024 1:25 PM DRIER OPERATOR 1. LungRADS Category 2 (benign). Recommend Low [...] Tita Suero M.D. Narrative 09/10/2024 1:25 PM DRIER OPERATOR EXAMINATION: Lung cancer screening CT of the [...] GENERAL ORDERABLES Final Result [facility] Department [place] [address] from Last 3 Months or Most Recently Relevant to Health Maintenance Insurance [employer] [facility] [employer] [facility] Advance Directives For more information, please contact: [phone] * Full Code (Latest Code Status on File) Date Activated Date Inactivated Comments 01/02/2021 7:10 PM 01/19/2021 7:38 PM * Full Code Date Activated Date Inactivated Comments 01/02/2021 7:03 PM 01/02/2021 7:10 PM * Full Code Date Activated Date Inactivated Comments 06/11/2020 5:25 PM 06/20/2020 9:43 PM Care Teams Environmental Technology Professor Relationship Specialty Start Date End Date Tara Doan MD [address] [facility] [id number] [place], [place] [id number] PCP - General 01/10/24 Brooks Kaplan MD Consulting Physician Vascular Surgery 06/20/20 Saji Hale MD [address] [place], [place] [id number] Consulting Physician Plastic Surgery 06/20/20 Estrellita Han MD [address] [place], [place] [id number] Referring Physician Plastic Surgery 01/18/21
--- OUTSIDE RECORDS SUMMARY | 2025-01-17 22:10 | XMS_ITS | Encounter Summary ---
Author Organization [facility] Address [address] [place] [address] Care Team Providers Care Director Of Corporate Sales Name Role Phone Brooks Kaplan MD Unavailable [phone] Saji Hale MD Unavailable Estrellita Han MD Unavailable [phone] Katelin Tripp MD Primary Care Provider [phone] Tara Doan MD Primary Care Provider Encounter Details Date Type Department Care Team (Late st Contact Info) Description 11/21/2022 Telephone [facility] Primary Care Medicine Clinic [address] [facility] [address] [place] [address] Katelin Tripp MD [address] [facility] [address] [place], [place] [id number] Social History Tobacco Use Types Packs/Day Years [...] on file Legal Sex Male 3:45 AM SEED ANALYSIS LABORATORY ASSISTANT Gender Identity Not on file Sexual Orientation Not on file documented as of this encounter Plan of Treatment Scheduled Procedures Name Priority Associated Diagnoses Date/Ti me COLONOSCOPY Screening for colon cancer documented as of this encounter Visit Diagnoses Not on filedocumented in this encounter Care Teams Director Of Corporate Sales Relationship Specialty Start Date End Date Katelin Tripp MD [address] [place] [address] PCP - General Internal Medicine 11/11/22 01/09/24 Tara Doan MD [address] [facility] [address] [facility] [id number] [place] [address] PCP - General 01/10/24 Brooks Kaplan MD Consulting Physician Vascular Surgery 06/20/20 Saji Hale MD [address] [place] [address] Consulting Physician Plastic Surgery 06/20/20 Estrellita Han MD [address] [place] [address] Referring Physician Plastic Surgery 01/18/21 documented as of this encounter
--- OUTSIDE RECORDS SUMMARY | 2025-01-17 22:10 | XMS_ITS | Referral Summary ---
Author Organization [facility] Address [address] [place] [address] Care Team Providers Care Double Needle Operator Name Role Phone Brooks Kaplan MD Unavailable [phone] Saji Hale MD Unavailable [phone] Estrellita Han MD Unavailable [phone] Tara Doan MD Primary Care Provider [phone] Encounters Date Type Department Care Team Description 12/27/2024 3:15 PM CDT Office Visit [facility] Primary Care Medicine Clinic [address] [facility] [address] [place] [address] Tara Doan MD Primary hyperparathyroidism [...] 06/26/2023 Assessment & Plan (06/26/2023 7:30 PM BUSINESS SYSTEMS ANALYST): History of smoking 40 years 1 ppd. [...] appointment. Assessment & Plan (06/26/2023 7:30 PM BUSINESS SYSTEMS ANALYST): -CT lung 12/2022 category 2. Due 12/2023 [...] daily Assessment & Plan (06/26/2023 7:30 PM BUSINESS SYSTEMS ANALYST): BP 137/69 -Will continue to monitor -Continue [...] bovine pericardial patch angioplasty after endarterectomy of [place] common femoral artery and proximal SFA, stent angioplasty of infrarenal aorta w/ coverage with [place] excluder cuffs w/ extension into both limbs, [...] (01/15/2021): Added automatically from request for surgery [id number] Acute blood loss anemia 06/12/2020 Assessment & Plan (06/16/2020 7:41 AM BUSINESS SYSTEMS ANALYST): - Pre op Hgb 15.4, then 8.6 [...] revision (Rosaura 05/2020) - presented 01/02 with [place] 2x acute limb ischemia 2/2 to occlusion [...] outpatient Assessment & Plan (06/20/2020 6:50 AM BUSINESS SYSTEMS ANALYST): - s/p b/l redo groins, b/l iliac [...] (06/10/2020): Added automatically from request for surgery [id number] Surgical follow-up care 12/01/2015 Peripheral artery disease [...] Plan (12/27/2024 5:13 PM CDT): [facility] Orders: rivaroxaban (XARELTO) 2.5 [...] obtain. Assessment & Plan (06/26/2023 7:30 PM BUSINESS SYSTEMS ANALYST): History of PAD s/p bilateral aortobifem 06/2015 [...] on file Legal Sex Male 3:45 AM BUSINESS SYSTEMS ANALYST Gender Identity Not on file Sexual Orientation [...] 177.8 cm (5' 10) 09/10/2024 8:39 AM BUSINESS SYSTEMS ANALYST Body Mass Index 23.59 09/10/2024 8:39 AM BUSINESS SYSTEMS ANALYST Plan of Treatment Scheduled Procedures Name Priority Associated Diagnoses Date/Ti me COLONOSCOPY Screening for colon cancer Medical Devices Implanted Type Area Powerhouse Operator Device Identifier Shelf Expiration Date Model / Serial / Lot [employer] Vg-0108n Vascu-Guard 8x.8cm Peripheral Patch Vascular Bovine Pericardium - [id number] Implanted:Qty: 1 on 06/11/2020 by Brooks Kaplan MD at [facility] N/A: Groin [employer] 02/01/2025 VG-0108N / / [id number] Description:Femoral artery [employer] Vg-0108n Vascu-Guard 8x.8cm Peripheral Patch Vascular Bovine Pericardium - [id number] Implanted:Qty: 1 on 06/11/2020 by Brooks Kaplan MD at [facility] N/A: [employer] 02/01/2025 VG-0108N / / [id number] Wl [employer] [id number] 23mm 19-21mm 3.3cm Aorta Graft Endovascular - [id number] - [id number] Implanted:Qty: 1 on 06/11/2020 by Brooks Kaplan MD at [facility] N/A: Aorta Wl [employer] [id number] 12/13/2022 [id number] / [id number] / Wl [employer] [id number] 23mm 19-21mm 3.3cm Aorta Graft Endovascular - [id number] - [id number] Implanted:Qty: 1 on 06/11/2020 by Brooks Kaplan MD at [facility] N/A: Aorta Wl [employer] [id number] 12/13/2022 [id number] / [id number] / Bard Peripheral Vascular [id number] Lifestream 10mm 58mm 80cm Balloon Expandable Low Profile Cover - [id number] Implanted:Qty: 1 on 06/11/2020 by Brooks Kaplan MD at [facility] N/A: Iliac Bard Peripheral Vascular 05/20/2022 [id number] / / Description:Right Bard Peripheral Vascular [id number] Lifestream 10mm 58mm 80cm Balloon Expandable Low Profile Cover - [id number] Implanted:Qty: 1 on 06/11/2020 by Brooks Kaplan MD at [facility] N/A: Iliac Bard Peripheral Vascular 03/20/2021 [id number] / / Description:left Bard Peripheral Vascular [id number] Lifestream 10mm 58mm 135cm Balloon Expandable Low Profile Cover - [id number] Implanted:Qty: 1 on 06/11/2020 by Brooks Kaplan MD at [facility] N/A: Iliac Bard Peripheral Vascular 10/18/2022 [id number] / / Description:left Procedures Procedure Name Priority Date/Time Associated Diagnosis Comments CT LUNG CANCER SCREENING Schedule Routine, Read Routine (OP Routine) 09/10/2024 10:42 AM BUSINESS SYSTEMS ANALYST Personal history of nicotine dependence HEPATITIS C ANTIBODY Routine 12/27/2022 1:44 PM CDT Need for hepatitis C screening test from Last 3 Months or Most Recently Relevant to Health Maintenance Results * CT Lung Cancer Screening (09/10/2024 10:42 AM BUSINESS SYSTEMS ANALYST) Anatomical Region Laterality Modality Chest N/A Computed Tomogra phy 09/10/2024 1:25 PM BUSINESS SYSTEMS ANALYST Impressions 09/10/2024 1:25 PM BUSINESS SYSTEMS ANALYST 1. LungRADS Category 2 (benign). Recommend Low [...] Tita Suero M.D. Narrative 09/10/2024 1:25 PM BUSINESS SYSTEMS ANALYST EXAMINATION: Lung cancer screening CT of the [...] PM CDT) Hep C Ab Nonreactive Nonreactive [facility] Comment:Antibodies to HCV no t detected. Does NOT exclude the possibility of recent exposure to HCV. Current interpretive data was last revised on 22 Blood 12/27/2022 1:44 PM CDT 12/27/2022 2:32 PM CDT Erick Fenton MD LAB MICROBIOLOGY - GENERAL ORDERABLES Final Result [facility] [place] [address] from Last 3 Months or Most Recently Relevant to Health Maintenance Insurance [facility] AETNA [facility] Advance Directives For more information, please contact: [phone] * Full Code (Latest Code Status on File) Date Activated Date Inactivated Comments 01/02/2021 7:10 PM 01/19/2021 7:38 PM * Full Code Date Activated Date Inactivated Comments 01/02/2021 7:03 PM 01/02/2021 7:10 PM * Full Code Date Activated Date Inactivated Comments 06/11/2020 5:25 PM 06/20/2020 9:43 PM Care Teams Double Needle Operator Relationship Specialty Start Date End Date Tara Doan MD [address] [facility] [id number] [place] [address] PCP - General 01/10/24 Brooks Kaplan MD Consulting Physician Vascular Surgery 06/20/20 Saji Hale MD [address] [place] [address] Consulting Physician Plastic Surgery 06/20/20 Estrellita Han MD [address] [place] [address] Referring Physician Plastic Surgery 01/18/21
--- OUTSIDE RECORDS SUMMARY | 2025-01-17 22:10 | XMS_ITS | Continuity of Care Document ---
Author Organization [facility] Address [address] [place] [address] [address] [place] [address] Phone Care Team Providers Care Floor Manager Name Role Phone Patricia Gibbs Unavailable Unavailable Procedures Procedure Date Remove Foreign Body From Eye Advance Directives Directive Yes / No Effective Date File Name No Information Encounters Encounter Description Practice Location Reason(s) For Visit Diagnoses Date Provider Providers Copied on Encounter [facility], [address] [place] [address] [address], [place], [place], [id number], [place] tel:[phone] [facility] No Information 0-200 7 Bernie Gomez. [address] [facility] , [address], [place], [address], [place]. tel:[phone] Family History Family Member Type Diagnosis Age At Onset No Information Payers Payer name Insurance type Covered republican ID Authoriza tion(s) No Information Social History [...]
[2025-01-17] MEDS: ONDANSETRON INJ 4 MG/2 ML VIAL IV PUSH (22:56)
[2025-01-17] MEDS: MORPHINE SULFATE (*CRX) 4 MG/ML INJ IV PUSH (22:57)
[2025-01-17 23:25] LABS: Toxigenic C. Diff NEGATIVE (NEGATIVE)
[2025-01-17 23:58] VITALS: BP 108/78; PULSE 83; RESP 17; O2SAT 97
[2025-01-18] MEDS: HYDROmorphone HCL INJ (*CRX) 2 MG/ML VIAL 0.5 MG IV PUSH ×4 (00:29→19:33)
[2025-01-18] MEDS: SODIUM CHLORIDE 0.9% IV 1,000 ML 125 ML IV CONT (01:06)
[2025-01-18] MEDS: metroNIDAZOLE 500 MG/ISO 100ML 500 MG/100 ML BAG 100 MG IVPB ×4 (01:08→23:31)
[2025-01-18 01:10] VITALS: BMI 22.7
--- NOTE | 2025-01-18 01:18 | ADMGEN ---
This patient, Jonathan Caldwell Jr., was admitted to 3 Med Surg Room 325-01 at 0030. Patient/family oriented to hospital policies and general routines including ID bracelet, bed and alarms, visiting hours, pain management, procedures, bathroom and other care routines, personal items, smoking policy, room service/diet, and visiting hours. Information on how to activate the Rapid Response Team has been discussed. Patient/Family are encouraged to report perceived risks to care and to ask questions if they do not understand what they are told or what they should do.
--- NOTE | 2025-01-18 02:40 | P.HP_ITS ---
H&P: HPI History of Present Illness Date/Time: 01/18/25 04:00 Chief Complaint: Abdominal pain and diarrhea. Narrative: This is a very pleasant 59-year-old male with history of diverticulitis, hypertension, hyperlipidemia, coronary artery disease and peripheral vascular disease who presented to the emergency department via private vehicle with complaints of abdominal pain and diarrhea. He has not been feeling well for 3 to 4 days with symptoms to include generalized abdominal cramping and watery diarrhea which yesterday looked ?white and foamy? yesterday. He denies fever, hematemesis, melena, and hematochezia. These symptoms are not similar to previous episodes of diverticulitis. He denies sick contacts, recent travel, and recent antibiotic use. No personal or family history of inflammatory bowel disea se. He has lost about 60 lb over the last year so but has made diet changes and it was not unintentional. He has never had a colonoscopy. In the ED: He was afebrile on arrival with a pulse of 106. The remainder of his vital signs were stable. Labs are significant for a WBC count of 11.6, BUN 22, glucose 144, lactic acid 1.3. He was negative for C diff. CT of the abdomen pelvis showed findings of ileitis and diffuse colitis. He received IV fluids, antiemetics, analgesics, and was started on metronidazole and ceftriaxone. He is being admitted in this setting for further treatment and evaluation as well as GI consultation. Review of Systems Review of Systems: 12 systems were reviewed and are negativ e except for as per HPI. [facility] Past Medical History Medical History (Updated 01/18/25 @ 06:08 by Casandra Mariscal PA-C) Hyperlipidemia Hypertension Peripheral vascular disease Coronary artery disease History of aortic aneurysm Diverticulitis Surgical History Surgical History History of aortic aneurysm repair History of vascular surgery Graft, bilateral lower extremities History of heart artery stent History of coronary artery bypass graft Social History Social History (Updated 01/18/25 @ 06:05 by Casandra Mariscal PA-C) Social History: Surrogate medical decision maker: Heike Caldwell, mother. Code status: Full code. Smoking packs per day: 2 Smoking cigarettes per day: 40.0 Years smoked: 25 Smoking pack-years: 50.00 Smoking status: Former smoker Tobacco type: cigarettes Alcohol intake: former Substance use: former Substance use type: marijuana Other substance usage details: marijuana use occasionally Do You Feel Safe in your Home?: Yes Lack of Transportation: No Lack of Food: Never True Current Housing: I Have Housing Concerned About Future Housing: No Difficulty Paying Gas/Electric Bills: Decline to Answer Difficulty Paying for Meds: No Currently Unemployed: No Education: High School Diploma/GED Difficulty w/ Childcare or Family Care: No Spiritual care concerns: No Meds Home Medications and Allergies Home Medications ?Medication ?Instructions ?Recorded ?Confirmed ?Type amlodipine 10 mg tablet 10 mg PO DAILY 06/21/24 01/18/25 History aspirin 81 mg chewable tablet 81 mg PO DAILY 06/21/24 01/18/25 History atorvastatin 40 mg tablet 40 mg PO HS 06/21/24 01/18/25 History losartan 25 mg tablet 25 mg PO DAILY 06/21/24 01/18/25 History rivaroxaban 20 mg tablet (Xarelto) 20 mg PO DAILY 06/21/24 01/18/25 History Allergies Allergy/AdvReac Type Severity Reaction Status Date / Time No Known Allergies Allergy Verified 07/07/24 09:36 Vital Signs Vital Signs - 24 hr 01/17/25 17:40 01/17/25 23:58 01/18/25 01:49 Temperature 98.6 F Pulse Rate 106 H 83 Respiratory Rate 18 17 Blood Pressure 123/90 108/78 Pulse Oximetry 100 97 Oxygen Delivery Room Air Room Air Exam Narrative: General: Mildly ill-appearing male supine in bed in no distress. Weight: 72 kg. BMI: 22.8. HEENT: PERRL, EOMI. Sclera anicteric. Tacky mucous membranes. Neck: Supple. Respiratory: Lungs are clear to auscultation bilaterally. Cardiovascular: Regular rate and rhythm with S1-S2. Gastrointestinal: Abdomen is soft and nondistended with positive bowel sounds. He is tender to palpation throughout the abdomen without guarding or rebound tenderness. Skin: Warm and dry. Extremities: No cyanosis, clubbing, or edema. Neurological: Alert. Cranial nerves grossly intact. No gross focal deficits to casual conversation. Psychiatric: Pleasant and cooperative with normal mood and affect. Judgment and insight intact. H&P: Results Labs Labs: Short CBC 01/17/25 Range/Units 18:20 WBC 11.6 H (4.5-10.0) K/mm3 Hgb 15.3 (14.0-18.0) g/dL Hct 45.8 (42.0-52.0) % Plt Count 179 (150-375) k/mm3 BMP 01/17/25 18:20 Sodium 137 Potassium 3.9 Chloride 104 Carbon Dioxide 21 L BUN 22 H Creatinine 1.05 Glucose 144 H Calcium 10.5 H Liver Function 01/17/25 Range/Units 18:20 Total Bilirubin 0.6 (0.2-1.3) mg/dL AST 34 (17-59) U/L ALT 24 (6-50) U/L Alkaline Phosphatase 57 (38-126) U/L Albumin 4.2 (3.5-5.1) g/dL Urine 01/17/25 Range/Units 20:38 Urine Color Yellow (Yellow) Urine Appearance Clear (Clear) Urine pH 6.5 (5.0-9.0) Ur Specific [place] > 1.045 H (1.001-1.035) Urine Protein 1+ H (Negative) mg/dL Urine Glucose (UA) Negative (Negative) mg/dL Imaging Abdomen/Pelvis CT 01/17/25 19:55 IMPRESSION: CT findings of ileitis and diffuse colitis. Assessment and Plan Assessment and plan (1) Colitis: Code(s): K52.9 - Noninfective gastroenteritis and colitis, unspecified Status: Acute (2) Ileitis: Code(s): K52.9 - Noninfective gastroenteritis and colitis, unspecified Status: Acute (3) Hypertension: Code(s): I10 - Essential (primary) hypertension Status: Acute (4) Coronary artery disease: Code(s): I25.10 - Atherosclerotic heart disease of [place] coronary artery without angina pectoris Status: Acute (5) Peripheral vascular disease: Code(s): I73.9 - Peripheral vascular disease, unspecified Status: Acute Plan The patient presented to the emergency department for evaluation of abdominal pain and diarrhea for the last 3 days or so as detailed in HPI. Labs, imaging, EKG, and all reports were personally reviewed. Preliminary workup in the emergency department revealed an afebrile patient with a WBC \of 11.6 and findings of ileitis and colitis on imaging. He was started on ceftriaxone and metronidazole for presumed infectious colitis. Stool was negative for C diff. stool cultures have been ordered and are pending. I will ask GI to see him in consultation for further recommendations. He looks dry on exam and by labs and will be judiciously hydrated. Blood pressures were reviewed and they have been stable. No acute issues with regards to coronary artery disease or peripheral vascular disease. His home medications will be reviewed and resumed as appropriate. Findings and treatment plan were discussed with the patient. Questions were solicited and answered to satisfaction. The patient's medical management will be taken over by the hospitalist team in a.m. Quality VTE Prophylaxis VTE prophylaxis: pharmacologic ordered (On Xarelto) The patient has been admitted under observation status. Hospitalist [facility] Advance Care Plan I have confirmed that the patient's Advanced Care Plan is present, code status is documented, or surrogate decision maker is listed in patient medical record.: Yes Medication Reconciliation I have utilized all available resources to obtain, update and review the patients current medications (includes all prescriptions, OTC, herbals, cannabis, and nutritional supplements).: Yes
[2025-01-18 06:00] VITALS: BP 104/69; PULSE 71; RESP 18; TEMP 36.4; O2SAT 99
[2025-01-18 06:34] LABS: Hematocrit 39.0 % (42.0-52.0); Hemoglobin 12.9 g/dL (14.0-18.0); Immature Platelet Fraction Pct 8.5 % (0.9-11.2); Mean Corpuscular HGB Conc 33.1 g/dl (32-36); Mean Corpuscular Hemoglobin 29.3 pg (26-34); Mean Corpuscular Volume 88.4 fl (80-100); Platelet Count Result 137 k/mm3 (150-375); Red Blood Count 4.41 M/mm3 (4.6-6.20); White Blood Count 8.1 K/mm3 (4.5-10.0)
[2025-01-18 06:52] LABS: Anion Gap 3 mmol/L (4-12); Blood Urea Nitrogen 17 mg/dL (9-20); Calcium 9.4 mg/dL (8.4-10.2); Carbon Dioxide 27 mmol/L (22-30); Chloride 108 mmol/L (98-107); Estimated CRCL calculation 66 ml/min; Estimated Glomerular Filt Rate > 60; Glucose 98 mg/dL (65-110); Magnesium 2.0 mg/dL (1.6-2.3); Potassium 4.2 mmol/L (3.4-5.0); Sodium 138 mmol/L (137-145)
--- NOTE | 2025-01-18 08:07 | P.PNIM_ITS ---
Progress Note: A&P Assessment and Plan (1) Colitis: Code(s): K52.9 - Noninfective gastroenteritis and colitis, unspecified Status: Acute Assessment and Plan: * Abdominal pain and diarrhea x3 days * Likely secondary to food poisoning * CT abdomen pelvis: CT findings of ileitis and diffuse colitis.. * Cdiff negative, stool cultures pending * GI consult, appreciate further recommendations * Continue empiric antibiotics and IV fluid rehydration * Continue p.r.n. pain control (2) Ileitis: Code(s): K52.9 - Noninfective gastroenteritis and colitis, unspecified Status: Acute Assessment and Plan: * See above (3) Hypertension: Code(s): I10 - Essential (primary) hypertension Status: Acute Assessment and Plan: * Patient's blood pressure was reviewed on 01/18 * Blood pressure remains well controlled. * Will continue current medications. * Stable -104/69 (4) Coronary artery disease: Code(s): I25.10 - Atherosclerotic heart disease of [place] coronary artery without angina pectoris Status: Acute Assessment and Plan: * Continue at home medications (5) Peripheral vascular disease: Code(s): I73.9 - Peripheral vascular disease, unspecified Status: Acute Assessment and Plan: * Continue at home medications Subjective Date/time seen: 01/18/25 08:07 Interval history: 59-year-old male with history of diverticulitis, HTN, hyperlipidemia, CAD and peripheral vascular disease who presented to the ED with complaints of abdominal pain and diarrhea. 01/18/2025 Patient sitting comfortably in bed at time of examination. Denies any chest pain, shortness a breath, nausea/vomiting or abdominal pain at this time. Just received anti emetics and pain control at time of examination, states that he had some slight nausea before medication administration but feels good now. Seen by GI, agree with enteric colitis likely secondary to food poisoning. Will continue empiric antibiotics and IV fluid hydration, along with p.r.n. pain control the next few days. Review of Systems Review of Systems: 12 systems were reviewed and are negativ e except for as per HPI. Exam Narrative: General: Mildly ill-appearing male supine in bed in no distress. Weight: 72 kg. BMI: 22.8. HEENT: PERRL, EOMI. Sclera anicteric. Moist mucous membranes. Neck: Supple. Respiratory: Lungs are clear to auscultation bilaterally. Cardiovascular: Regular rate and rhythm with S1-S2. Gastrointestinal: Abdomen is soft and nondistended with positive bowel sounds. He is tender to palpation throughout the abdomen without guarding or rebound tenderness. Skin: Warm and dry. Extremities: No cyanosis, clubbing, or edema. Neurological: Alert. Cranial nerves grossly intact. No gross focal deficits to casual conversation. Psychiatric: Pleasant and cooperative with normal mood and affect. Judgment and insight intact. Objective Data Vital Signs Vital Signs: Vital Signs - 24 hr 01/17/25 17:40 01/17/25 23:58 01/18/25 01:49 Temperature 98.6 F Pulse Rate 106 H 83 Respiratory Rate 18 17 Blood Pressure 123/90 108/78 Pulse Oximetry 100 97 Oxygen Delivery Room Air Room Air 01/18/25 06:00 Temperature 97.5 F L Pulse Rate 71 Respiratory Rate 18 Blood Pressure 104/69 Pulse Oximetry 99 Oxygen Delivery Intake/Output Intake/Output: Intake & Output 01/15/25 01/16/25 01/17/25 01/18/25 23:59 23:59 23:59 23:59 Intake Total 1000 150 Balance 1000 150 Meds/Results Medications: Active Medications Generic Name Dose Route Start Last Admin Trade Name Freq PRN Reason Stop Dose Admin Amlodipine Besylate 10 mg 01/18/25 09:00 Amlodipine Besylate 10 Mg Tablet PO DAILY [facility] Aspirin 81 mg 01/18/25 08:00 Aspirin 81 Mg Chewable Tablet PO DAILY@0800 [facility] Atorvastatin Calcium 40 mg 01/18/25 21:00 Atorvastatin 40 Mg Tablet PO HS [facility] Hydromorphone HCl 0.5 mg 01/18/25 04:34 01/18/25 04:46 Hydromorphone Hcl Inj (*Crx) 2 Mg/Ml Vial IV PUSH 0.5 mg Q3H PRN Administration Pain Rated 7-10 Sodium Chloride 1,000 mls @ 100 mls/hr 01/17/25 23:45 01/18/25 01:06 Normal Saline Iv IV CONT 125 mls/hr .Q10H ARMANDO Administration Ceftriaxone Sodium 1 gm in 50 mls @ 100 mls/hr 01/18/25 21:00 Rocephin 1 Gm/Ns 50 Ml IVPB Q24H [facility] Metronidazole 500 mg in 100 mls @ 100 mls/hr 01/18/25 08:00 Flagyl 500 Mg/Iso Soln 100 Ml IVPB Q8H [facility] Losartan Potassium 25 mg 01/18/25 09:00 Losartan Potassium 25 Mg Tablet PO DAILY [facility] Rivaroxaban 20 mg 01/18/25 17:00 Rivaroxaban 20 Mg Tablet PO DAILY@1700 [facility] Radiology Results: ITS Impressions Abdomen/Pelvis CT 01/17/25 19:55 IMPRESSION: CT findings of ileitis and diffuse colitis. Labs Labs: Laboratory Results - last 24 hr 01/17/25 01/17/25 01/17/25 18:20 20:38 22:08 WBC 11.6 H RBC 5.25 Hgb 15.3 Hct 45.8 MCV 87.2 MCH 29.1 MCHC 33.4 RDW 13.0 Plt Count 179 MPV 11.9 H Immature Gran % (Auto) 0.3 Neut % (Auto) 74.5 H Lymph % (Auto) 9.8 L [place] % (Auto) 14.7 H Eos % (Auto) 0.3 Baso % (Auto) 0.4 Lymph # (Auto) 1.14 [place] # (Auto) 1.7 H Eos # (Auto) 0.0 Baso # (Auto) 0.1 Abs Immat Gran (auto) 0.03 Absolute Neuts (auto) 8.6 H Absolute Nucleated RBC 0.000 Nucleated RBC % 0.0 % Immature Plt Fraction Sodium 137 Potassium 3.9 Chloride 104 Carbon Dioxide 21 L Anion Gap 12 BUN 22 H Creatinine 1.05 Estim Creat Clear Calc 67 Estimated GFR > 60 Glucose 144 H Lactic Acid 1.3 Calcium 10.5 H Magnesium Total Bilirubin 0.6 AST 34 ALT 24 Alkaline Phosphatase 57 Total Protein 7.5 Albumin 4.2 Lipase 213 Urine Color Yellow Urine Appearance Clear Urine pH 6.5 Ur Specific [place] > 1.045 H Urine Protein 1+ H Urine Glucose (UA) Negative Urine Ketones Negative Ur Blood (Man) Trace Urine Nitrate Negative Urine Bilirubin Negative Urine Urobilinogen 0.2 Add Ur Microanalysis Reviewed Leukocyte Esterase Rfl Negative Urine RBC 6-10 H Urine WBC 0-5 Ur Squamous Epith Cells None seen Urine Bacteria None seen Urine Casts 0-2 Urine Opiates Screen Negative Urine Methadone Screen Negative Ur Barbiturates Screen Negative Ur Phencyclidine Scrn Negative Ur Amphetamine Screen Negative U Benzodiazepines Scrn Negative Urine Cocaine Screen Negative U Cannabinoids Screen Positive A C. difficile (PCR) 01/17/25 01/18/25 22:24 06:26 WBC 8.1 RBC 4.41 L Hgb 12.9 L Hct 39.0 L MCV 88.4 MCH 29.3 MCHC 33.1 RDW 13.0 Plt Count 137 L MPV 11.2 H Immature Gran % (Auto) Neut % (Auto) Lymph % (Auto) [place]th % (Auto) Eos % (Auto) Baso % (Auto) Lymph # (Auto) [place]th # (Auto) Eos # (Auto) Baso # (Auto) Abs Immat Gran (auto) Absolute Neuts (auto) Absolute Nucleated RBC Nucleated RBC % % Immature Plt Fraction 8.5 Sodium 138 Potassium 4.2 Chloride 108 H Carbon Dioxide 27 Anion Gap 3 L BUN 17 Creatinine 1.06 Estim Creat Clear Calc 66 Estimated GFR > 60 Glucose 98 Lactic Acid Calcium 9.4 Magnesium 2.0 Total Bilirubin AST ALT Alkaline Phosphatase Total Protein Albumin Lipase Urine Color Urine Appearance Urine pH Ur Specific [place] Urine Protein Urine Glucose (UA) Urine Ketones Ur Blood (Man) Urine Nitrate Urine Bilirubin Urine Urobilinogen Add Ur Microanalysis Leukocyte Esterase Rfl Urine RBC Urine WBC Ur Squamous Epith Cells Urine Bacteria Urine Casts Urine Opiates Screen Urine Methadone Screen Ur Barbiturates Screen Ur Phencyclidine Scrn Ur Amphetamine Screen U Benzodiazepines Scrn Urine Cocaine Screen U Cannabinoids Screen C. difficile (PCR) Negative Quality VTE Prophylaxis VTE prophylaxis: pharmacologic ordered (On Xarelto)
[2025-01-18] MEDS: LOSARTAN POTASSIUM 25 MG TABLET PO (08:47)
[2025-01-18] MEDS: ASPIRIN 81 MG CHEWABLE TABLET PO (08:47)
[2025-01-18] MEDS: SODIUM CHLORIDE 0.9% IV 1,000 ML 100 ML IV CONT (11:30)
[2025-01-18 13:37] VITALS: BP 98/65; PULSE 62; RESP 16; TEMP 35.8; O2SAT 98
--- NOTE | 2025-01-18 15:44 | P.CONGI_ITS ---
Assessment and Plan Assessment and plan (1) Acute gastroenteritis: Code(s): K52.9 - Noninfective gastroenteritis and colitis, unspecified Status: Acute Assessment and Plan: The patient exhibits an acute presentation of gastroenteritis, with a history of watery diarrhea over the past three to four days. While the CT scan findings are nonspecific, they do not contradict this diagnosis and are likely incidental in this context. Antibiotic therapy is warranted due to the acute nature of the illness. Once deemed hemodynamically stable, the patient can be discharged on a three-day course of either levofloxacin 750 mg daily or Bactrim one tablet twice daily. GI Consult Note Consult date/time: 01/18/25 15:44 Reason for consult: Abdominal pain-diarhea HPI: Jonathan Caldwell Jr. is a 59 year old male with a history of hypertension, coronary artery disease and diverticulitis in the past, came in after 3 or 4 days of crampy lower abdominal pain moderate to severe in intensity and severe diarrhea, at least 10 episodes the day prior. His atovaquone alcohol user, and after admission with analgesics and hydration he feels better this morning. His laboratory data at admission: WBC 8.1, hemoglobin 12.9, hematocrit 39, platelet 137, sodium 138, potassium 4.2, BUN 17, creatinine 1.06, liver chemistries normal. Review of Systems 2 Review of Systems: All systems reviewed & are unremarkable except as noted in HPI and below PMFSH Past Medical History Medical History (Updated 01/18/25 @ 15:46 by Serafin Gutierrez MD) Hyperlipidemia Hypertension Peripheral vascular disease Coronary artery disease History of aortic aneurysm Diverticulitis Surgical History Surgical History History of aortic aneurysm repair History of vascular surgery Graft, bilateral lower extremities History of heart artery stent History of coronary artery bypass graft Social History Social History (Updated 01/18/25 @ 06:05 by Casandra Mariscal PA-C) Social History: Surrogate medical decision maker: Heike Caldwell, mother. Code status: Full code. Smoking packs per day: 2 Smoking cigarettes per day: 40.0 Years smoked: 25 Smoking pack-years: 50.00 Smoking status: Former smoker Tobacco type: cigarettes Alcohol intake: former Substance use: former Substance use type: marijuana Other substance usage details: marijuana use occasionally Do You Feel Safe in your Home?: Yes Lack of Transportation: No Lack of Food: Never True Current Housing: I Have Housing Concerned About Future Housing: No Difficulty Paying Gas/Electric Bills: Decline to Answer Difficulty Paying for Meds: No Currently Unemployed: No Education: High School Diploma/GED Difficulty w/ Childcare or Family Care: No Spiritual care concerns: No Meds Home Medications and Allergies Home Medications ?Medication ?Instructions ?Recorded ?Confirmed ?Type amlodipine 10 mg tablet 10 mg PO DAILY 06/21/24 01/18/25 History aspirin 81 mg chewable tablet 81 mg PO DAILY 06/21/24 01/18/25 History atorvastatin 40 mg tablet 40 mg PO HS 06/21/24 01/18/25 History losartan 25 mg tablet 25 mg PO DAILY 06/21/24 01/18/25 History rivaroxaban 20 mg tablet (Xarelto) 20 mg PO DAILY 06/21/24 01/18/25 History Allergies Allergy/AdvReac Type Severity Reaction Status Date / Time No Known Allergies Allergy Verified 07/07/24 09:36 Vital Signs Vital Signs - 24 hr 01/17/25 17:40 01/17/25 23:58 01/18/25 01:49 Temperature 98.6 F Pulse Rate 106 H 83 Respiratory Rate 18 17 Blood Pressure 123/90 108/78 Pulse Oximetry 100 97 Oxygen Delivery Room Air Room Air 01/18/25 06:00 01/18/25 13:37 Temperature 97.5 F L 96.4 F L Pulse Rate 71 62 Respiratory Rate 18 16 Blood Pressure 104/69 98/65 L Pulse Oximetry 99 98 Oxygen Delivery Exam 2 Const: General: cooperative and healthy appearing Resp: Effort & Inspection: normal respiratory effort and able to speak in complete sentences Auscultation: clear to auscultation bilaterally Cardio: Rate: regular rate Rhythm: regular rhythm GI: Inspection: normal to inspection GI Palp: No No hepatosplenomegaly present Auscultation: normal bowel sounds Rectal Exam: deferred Skin: General skin exam: normal color Psych: Appearance: grossly normal Mental Status: mental status grossly normal Results Labs 01/18/25 06:26 01/18/25 06:26 Labs: Short CBC 01/17/25 01/18/25 Range/Units 18:20 06:26 WBC 11.6 H 8.1 (4.5-10.0) K/mm3 Hgb 15.3 12.9 L (14.0-18.0) g/dL Hct 45.8 39.0 L (42.0-52.0) % Plt Count 179 137 L (150-375) k/mm3 BMP 01/17/25 01/18/25 18:20 06:26 Sodium 137 138 Potassium 3.9 4.2 Chloride 104 108 H Carbon Dioxide 21 L 27 BUN 22 H 17 Creatinine 1.05 1.06 Glucose 144 H 98 Calcium 10.5 H 9.4 Liver Function 01/17/25 Range/Units 18:20 Total Bilirubin 0.6 (0.2-1.3) mg/dL AST 34 (17-59) U/L ALT 24 (6-50) U/L Alkaline Phosphatase 57 (38-126) U/L Albumin 4.2 (3.5-5.1) g/dL Urine 01/17/25 Range/Units 20:38 Urine Color Yellow (Yellow) Urine Appearance Clear (Clear) Urine pH 6.5 (5.0-9.0) Ur Specific [place] > 1.045 H (1.001-1.035) Urine Protein 1+ H (Negative) mg/dL Urine Glucose (UA) Negative (Negative) mg/dL
[2025-01-18] MEDS: RIVAROXABAN 20 MG TABLET PO (17:18)
--- NOTE | 2025-01-18 19:00 | PC.NURSE ---
On 01/18/25, the P[employer]ER, Maria Fernanda Valenzuela, provided care and completed [employer] documentation on this patient. I have reviewed the [employer]'s documentation and agree with the findings.
[2025-01-18] MEDS: ATORVASTATIN 40 MG TABLET PO (20:21)
[2025-01-18 22:00] VITALS: BP 95/71; PULSE 68; RESP 18; TEMP 36.1; O2SAT 97
[2025-01-19] MEDS: SODIUM CHLORIDE 0.9% IV 1,000 ML 100 ML IV CONT ×3 (00:19→22:27)
[2025-01-19 06:00] VITALS: BP 99/69; PULSE 66; RESP 18; TEMP 36.2; O2SAT 99
[2025-01-19] MEDS: metroNIDAZOLE 500 MG/ISO 100ML 500 MG/100 ML BAG 100 MG IVPB ×3 (08:05→23:58)
[2025-01-19] MEDS: ASPIRIN 81 MG CHEWABLE TABLET PO (08:05)
[2025-01-19] MEDS: HYDROmorphone HCL INJ (*CRX) 2 MG/ML VIAL 0.5 MG IV PUSH (08:11)
--- NOTE | 2025-01-19 09:46 | PC.NURSE ---
Held morning BP meds per Providers okay due to decreased blood pressure.
--- NOTE | 2025-01-19 10:56 | P.PNIM_ITS ---
Progress Note: A&P Assessment and Plan (1) Colitis: Code(s): K52.9 - Noninfective gastroenteritis and colitis, unspecified Status: Acute Assessment and Plan: * Abdominal pain and diarrhea x3 days * Likely secondary to food poisoning * CT abdomen pelvis: CT findings of ileitis and diffuse colitis.. * Cdiff negative, stool cultures pending * GI consult, appreciate further recommendations * Continue empiric antibiotics and IV fluid rehydration * Continue p.r.n. pain control - switch to oral pain control in anticipation for discharge (2) Ileitis: Code(s): K52.9 - Noninfective gastroenteritis and colitis, unspecified Status: Acute Assessment and Plan: * See above (3) Hypertension: Code(s): I10 - Essential (primary) hypertension Status: Acute Assessment and Plan: * Patient's blood pressure was reviewed on 01/18 * Blood pressure remains well controlled. * Stable -99/69 * Hold at home medications for now (4) Coronary artery disease: Code(s): I25.10 - Atherosclerotic heart disease of [place] coronary artery without angina pectoris Status: Acute Assessment and Plan: * Continue at home medications (5) Peripheral vascular disease: Code(s): I73.9 - Peripheral vascular disease, unspecified Status: Acute Assessment and Plan: * Continue at home medications Subjective Date/time seen: 01/19/25 10:56 Interval history: 59-year-old male with history of diverticulitis, HTN, hyperlipidemia, CAD and peripheral vascular disease who presented to the ED with complaints of abdominal pain and diarrhea. 01/19/2025 Patient sitting comfortably in bed at time of examination. Denies any chest pain, shortness a breath, nausea/vomiting or abdominal pain at this time. Will wean of IV pain control today, switch to oral in anticipation for discharge likely tomorrow if pain continues to improve. Review of Systems Review of Systems: 12 systems were reviewed and are negativ e except for as per HPI. Exam Narrative: General: Mildly ill-appearing male supine in bed in no distress. Weight: 72 kg. BMI: 22.8. HEENT: PERRL, EOMI. Sclera anicteric. Moist mucous membranes. Neck: Supple. Respiratory: Lungs are clear to auscultation bilaterally. Cardiovascular: Regular rate and rhythm with S1-S2. Gastrointestinal: Abdomen is soft and nondistended with positive bowel sounds. He is tender to palpation throughout the abdomen without guarding or rebound tenderness. Skin: Warm and dry. Extremities: No cyanosis, clubbing, or edema. Neurological: Alert. Cranial nerves grossly intact. No gross focal deficits to casual conversation. Psychiatric: Pleasant and cooperative with normal mood and affect. Judgment an d insight intact. Objective Data Vital Signs Vital Signs: Vital Signs - 24 hr 01/18/25 13:37 01/18/25 22:00 01/19/25 06:00 Temperature 96.4 F L 96.9 F L 97.1 F L Pulse Rate 62 68 66 Respiratory Rate 16 18 18 Blood Pressure 98/65 L 95/71 L 99/69 L Pulse Oximetry 98 97 99 Intake/Output Intake/Output: Intake & Output 01/16/25 01/17/25 01/18/25 01/19/25 23:59 23:59 23:59 23:59 Intake Total 1000 3930.0 1666.7 Balance 1000 3930.0 1666.7 Meds/Results Medications: Active Medications Generic Name Dose Route Start Last Admin Trade Name Freq PRN Reason Stop Dose Admin Amlodipine Besylate 10 mg 01/18/25 09:00 01/19/25 09:45 Amlodipine Besylate 10 Mg Tablet PO Not Given DAILY [facility] Aspirin 81 mg 01/18/25 08:00 01/19/25 08:05 Aspirin 81 Mg Chewable Tablet PO 81 mg DAILY@0800 ARMANDO Administration Atorvastatin Calcium 40 mg 01/18/25 21:00 01/18/25 20:21 Atorvastatin 40 Mg Tablet PO 40 mg HS ARMANDO Administration Hydromorphone HCl 0.5 mg 01/18/25 04:34 01/19/25 08:11 Hydromorphone Hcl Inj (*Crx) 2 Mg/Ml Vial IV PUSH 0.5 mg Q3H PRN Administration Pain Rated 7-10 Sodium Chloride 1,000 mls @ 100 mls/hr 01/17/25 23:45 01/19/25 08:05 Normal Saline Iv IV CONT 100 mls/hr .Q10H ARMANDO Administration Ceftriaxone Sodium 1 gm in 50 mls @ 100 mls/hr 01/18/25 21:00 01/18/25 20:18 Rocephin 1 Gm/Ns 50 Ml IVPB 100 mls/hr Q24H ARMANDO Administration Metronidazole 500 mg in 100 mls @ 100 mls/hr 01/18/25 08:00 01/19/25 08:05 Flagyl 500 Mg/Iso Soln 100 Ml IVPB 100 mls/hr Q8H ARMANDO Administration Losartan Potassium 25 mg 01/18/25 09:00 01/19/25 09:45 Losartan Potassium 25 Mg Tablet PO Not Given DAILY [facility] Rivaroxaban 20 mg 01/18/25 17:00 01/18/25 17:18 Rivaroxaban 20 Mg Tablet PO 20 mg DAILY@1700 ARMANDO Administration Radiology Results: ITS Impressions Abdomen/Pelvis CT 01/17/25 19:55 IMPRESSION: CT findings of ileitis and diffuse colitis. Quality VTE Prophylaxis VTE prophylaxis: pharmacologic ordered (On Xarelto)
[2025-01-19 14:08] VITALS: BP 112/88; PULSE 69; RESP 16; TEMP 36.4; O2SAT 97
[2025-01-19] MEDS: HYDROcodone/acetaminophen (*CRX) 5-325 MG TABLET 1 TAB PO (14:16)
[2025-01-19] MEDS: RIVAROXABAN 20 MG TABLET PO (16:38)
[2025-01-19 20:00] VITALS: PULSE 65; RESP 16; O2SAT 99
[2025-01-19] MEDS: ATORVASTATIN 40 MG TABLET PO (20:52)
[2025-01-19 21:27] VITALS: BP 119/87; PULSE 65; RESP 16; TEMP 36.3; O2SAT 99
[2025-01-20 05:52] VITALS: BP 110/71; PULSE 63; RESP 14; TEMP 36.1; O2SAT 98
[2025-01-20 06:50] LABS: Hematocrit 41.0 % (42.0-52.0); Hemoglobin 13.7 g/dL (14.0-18.0); Immature Granulocyte Percent A 0.2 % (0-0.5); Lymphocytes Absolute Auto 2.22 K/mm3 (0.9-3.2); Mean Corpuscular HGB Conc 33.4 g/dl (32-36); Mean Corpuscular Hemoglobin 29.3 pg (26-34); Mean Corpuscular Volume 87.6 fl (80-100); Nucleated Red Blood Cells Absolute Auto 0.000 K/mm3 (0.0-0.012); Nucleated Red Blood Cells Perc 0.0 % (0.0-0.2); Platelet Count Result 177 k/mm3 (150-375); Red Blood Count 4.68 M/mm3 (4.6-6.20); White Blood Count 8.3 K/mm3 (4.5-10.0)
[2025-01-20 06:59] LABS: Alanine Aminotransferase 26 U/L (6-50); Albumin Level 3.5 g/dL (3.5-5.1); Alkaline Phosphatase 45 U/L (38-126); Anion Gap 5 mmol/L (4-12); Aspartate Amino Transferase 39 U/L (17-59); Bilirubin,Total 0.5 mg/dL (0.2-1.3); Blood Urea Nitrogen 8 mg/dL (9-20); Calcium 9.5 mg/dL (8.4-10.2); Carbon Dioxide 27 mmol/L (22-30); Chloride 105 mmol/L (98-107); Estimated CRCL calculation 79 ml/min; Estimated Glomerular Filt Rate > 60; Glucose 87 mg/dL (65-110); Potassium 4.2 mmol/L (3.4-5.0); Sodium 137 mmol/L (137-145); Total Protein 6.2 g/dL (6.3-8.2)
[2025-01-20 07:35] LABS: Schistocytes None Seen
[2025-01-20] MEDS: metroNIDAZOLE 500 MG/ISO 100ML 500 MG/100 ML BAG 100 MG IVPB (08:36)
[2025-01-20] MEDS: ASPIRIN 81 MG CHEWABLE TABLET PO (08:37)
[2025-01-20] MEDS: LOSARTAN POTASSIUM 25 MG TABLET PO (08:37)
--- NOTE | 2025-01-20 08:54 | PM.DS ---
DS: Admitting Diagnosis Discharge Date 01/20/2025 Admitting Diagnosis Gastroenteritis DS: Discharge Diagnosis Discharge Diagnosis (1) Colitis: Code(s): K52.9 - Noninfective gastroenteritis and colitis, unspecified Status: Acute (2) Ileitis: Code(s): K52.9 - Noninfective gastroenteritis and colitis, unspecified Status: Acute (3) Hypertension: Code(s): I10 - Essential (primary) hypertension Status: Acute (4) Coronary artery disease: Code(s): I25.10 - Atherosclerotic heart disease of [place] coronary artery without angina pectoris Status: Acute (5) Peripheral vascular disease: Code(s): I73.9 - Peripheral vascular disease, unspecified Status: Acute DS: Summary Hospital Course Reason for hospitalization: Abdominal pain and diarrhea. Hospital Course: This is a very pleasant 59-year-old male with history of diverticulitis, hypertension, hyperlipidemia, coronary artery disease and peripheral vascular disease who presented to the emergency department via private vehicle with complaints of abdominal pain and diarrhea. He has not been feeling well for 3 to 4 days with symptoms to include generalized abdominal cramping and watery diarrhea which yesterday looked ?white and foamy? yesterday. He denies fever, hematemesis, melena, and hematochezia. These symptoms are not similar to previous episodes of diverticulitis. He denies sick contacts, recent travel, and recent antibiotic use. No personal or family history of inflammatory bowel disease. He has lost about 60 lb over the last year so but has made diet changes and it was not unintentional. He has never had a colonoscopy. In the ED: He was afebrile on arrival with a pulse of 106. The remainder of his vital signs were stable. Labs are significant for a WBC count of 11.6, BUN 22, glucose 144, lactic acid 1.3. He was negative for C diff. CT of the abdomen pelvis showed findings of ileitis and diffuse colitis. He received IV fluids, antiemetics, analgesics, and was started on metronidazole and ceftriaxone. He is being admitted in this setting for further treatment and evaluation as well as GI consultation. GI consulted regarding acute gastroenteritis. Agree with likely diagnosis, recommend IV antibiotic therapy with transition to oral antibiotics upon discharge. Throughout hospitalization, leukocytosis improved. CBC unremarkable for any acute findings. Pain was well managed with IV narcotics, switched to oral medications and eventually patient denied any pain meds at all. Patient is hemodynamically stable for discharge at this time. He has appropriate follow-up with his PCP and will be discharged on levofloxacin 750 mg for 2 days. Patient is amenable to this plan, plan for discharge home at this time. Status at Discharge Functional status at discharge: independent ambulation Overall status at discharge: patient is back to baseline Time Spent with Patient Time attestation: Total time spent providing and/or coordinating discharge services: 41 Exam Narrative: General: Mildly ill-appearing male supine in bed in no distress. Weight: 72 kg. BMI: 22.8. HEENT: PERRL, EOMI. Sclera anicteric. Moist mucous membranes. Neck: Supple. Respiratory: Lungs are clear to auscultation bilaterally. Cardiovascular: Regular rate and rhythm with S1-S2. Gastrointestinal: Abdomen is soft and nondistended with positive bowel sounds. Non-tender without guarding or rebound tenderness. Skin: Warm and dry. Extremities: No cyanosis, clubbing, or edema. Neurological: Alert. Cranial nerves grossly intact. No gross focal deficits to casual conversation. Psychiatric: Pleasant and cooperative with normal mood and affect. Judgment and insight intact. DS: Data Data Completed and Pending Labs on day of discharge: Labs from last 24 hours 01/20/25 06:39 WBC 8.3 RBC 4.68 Hgb 13.7 L Hct 41.0 L MCV 87.6 MCH 29.3 MCHC 33.4 RDW 13.0 Plt Count 177 MPV 11.2 H Immature Gran % (Auto) 0.2 Neut % (Auto) 60.9 Lymph % (Auto) 26.9 [place] % (Auto) 8.0 Eos % (Auto) 3.4 Baso % (Auto) 0.6 Lymph # (Auto) 2.22 [place] # (Auto) 0.7 H Eos # (Auto) 0.3 Baso # (Auto) 0.1 Abs Immat Gran (auto) 0.02 Absolute Neuts (auto) 5.0 Absolute Nucleated RBC 0.000 Band Neutrophils % Not Reportable Nucleated RBC % 0.0 Atypical Lymphocytes Present Platelet Estimate Adequate Schistocytes None seen Sodium 137 Potassium 4.2 Chloride 105 Carbon Dioxide 27 Anion Gap 5 BUN 8 L D Creatinine 0.89 Estim Creat Clear Calc 79 Estimated GFR > 60 Glucose 87 Calcium 9.5 Total Bilirubin 0.5 AST 39 ALT 26 Alkaline Phosphatase 45 Total Protein 6.2 L Albumin 3.5 Preliminary micro results at discharge 01/17/25 22:07 Blood Culture - Preliminary Blood 01/17/25 22:08 Blood Culture - Preliminary Blood Discharge Plan Discharge Attending physician on discharge: Nicol Beckett Consulting providers: Arturo Richard Discharging Clinician: Arturo Richard Anticipated Discharge Date/Time: 01/20/25 08:51 Patient Disposition: Home Activity: as tolerated Diet: as tolerated Discharge Instructions: Discharge disposition: Stable Take medications as prescribed. You will be prescribed 3 more days of Levofloxacin 750mg, to be taken once daily. Monitor blood pressures Take caution while standing, rising, or moving Change positions slowly taking a break between each position change If you standing feel dizzy sit back down and take a break Encouraged to continue with yearly vaccinations Return to the emergency department if he developed sudden shortness of breath, chest pain, nausea, vomiting, upset stomach or intractable diarrhea Return to the emergency department if you develop fever greater than 101.5 Follow-up with the primary care physician within 1-2 weeks Thank you for [facility] for your healthcare needs Patient Instructions: Antibiotic Form Patient Language: Romanian Stand Alone Forms: General Discharge Information Follow-up/Referrals: Starr,MD Keegna [Primary Care Provider] - Discharge Medications: New levofloxacin 750 mg tablet 750 mg PO DAILY 3 Days Qty: 3 0RF acetaminophen [Tylenol] 325 mg tablet 325 mg PO ONCE PRN (Reason: pain) Qty: 7 0RF Continued atorvastatin 40 mg Tablet 40 mg PO HS amlodipine 10 mg Tablet 10 mg PO DAILY losartan 25 mg Tablet 25 mg PO DAILY aspirin 81 mg Tablet,Chewable 81 mg PO DAILY Xarelto 20 mg Tablet 20 mg PO DAILY Rx Instructions: must administer with evening meal Date of admission: 01/19/25 09:13 Primary Care Provider: TeresitaKeegan Admitting Provider: Adama Fox Attending physician on admission: Adama Fox Condition: Stable Quality VTE Prophylaxis VTE prophylaxis: pharmacologic ordered (On Xarelto)
== END 2025-01-20 12:26 | disposition home or self-care (01) | DRG 249 ==
LOC: ANHED 22:47 → ANH3MEDSUR 01-18 00:13
PROVIDERS: Physician Assistant; Registered Nurse; Admitting Provider Internal Medicine; Emergency Provider Physician Assistant; PCP Hospitalist; Visit Provider Physician Assistant
DX: K52.9 Noninfective gastroenteritis and colitis, unspecified (principal); I10 Essential (primary) hypertension; I25.10 Atherosclerotic heart disease of native coronary artery without angina pectoris; I73.9 Peripheral vascular disease, unspecified; E78.5 Hyperlipidemia, unspecified; K57.30 Diverticulosis of large intestine without perforation or abscess without bleeding; Z79.82 Long term (current) use of aspirin; Z79.01 Long term (current) use of anticoagulants; Z95.5 Presence of coronary angioplasty implant and graft; Z95.1 Presence of aortocoronary bypass graft; Z87.891 Personal history of nicotine dependence
CPT/HCPCS: 36415; 74177; 80048; 80053; 80307; 81001; 83605; 83690; 83735; 85025; 85027; 85055; 87040; 87045; 87427; 87449; 87493; 89055; 96361; 96365; 96368; 96374; 96375; 99285; A9270; G0378; G0379; J0696; J1171; J1836; J2270; J2405; J7030; Q9967